=== PATIENT | male | born 1960 | race Caucasian/White ===

== ENCOUNTER 2022-05-22 14:19 | Inpatient (IN) | payer MEDICARE ==
[~2022-05-22] VITALS: Ht 165.1 cm; Wt 56.2 kg
--- NOTE | 2022-05-22 11:33 | PM&R Post Admission Assessment ---
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 He lives in [place] with his spouse and his mother is involved in his care. He has had multiple falls in past 6 months. He currently denies any pain. Meds restarted include steroids. No constipation r eported. He is mod assist for ambulation and ADL's. cannot provide physical help but can provide supervision. Past Fefvzyh-Pcgbkh-Uqyuxr Hx Past Med/Social Hx: Reviewed Nursing Past Med/Soc Hx, Reviewed and Corrections made Patient Social History Marrital Status: Employed/Student: unemployed Alcohol Use: Denies Use Smoking Status: Former Smoker Past Medical History craniotomy 05/15/22 Cardiac: High Cholesterol, Hypertension Cancer: Melanoma Did You Recieve Any Treatments: Yes What Type of Treatment Did You: Surgical Intervention PM&R Allergy/Meds/Data Review Allergies Coded Allergies: Penicillins (Verified Allergy, Unknown, 05/22/22) Home Medications Scheduled Dexamethasone (Dexamethasone), 1 MG PO DAILY, (Reported) Dexamethasone (Dexamethasone), 2 MG PO BID, (Reported) Famotidine (Famotidine), 20 MG PO BID, (Reported) Fenofibrate Nanocrystallized (Tricor), 145 MG PO DAILY, (Reported) Levetiracetam (Levetiracetam), 500 MG PO BID, (Reported) Current Medications Current Medications Reviewed Review of Systems Constitutional: see HPI, malaise, weakness EENTM: no symptoms reported Respiratory: no symptoms reported Cardiovascular: no symptoms reported Gastrointestinal: no symptoms reported Genitourinary: no symptoms reported Musculoskeletal: back pain, joint pain Skin: no symptoms reported Psychiatric/Neurological: Depressed, Numbness, Weakness All Other Systems Reviewed Negative Unless Noted: Yes Physical Exam Physical Exam Vital Signs Capillary Refill : Height, Weight, BMI Height: '" Weight: lbs. oz. kg; BMI Method: General Appearance: No Apparent Distress, WD/WN, Chronically ill, Thin Eyes: Bilateral Eye Normal Inspection, Bilateral Eye PERRL HEENT: PERRL/EOMI, Normal ENT Inspection, Pharynx Normal Neck: Full Range of Motion, Normal Inspection, Non Tender, Supple, Carotid Bruit Respiratory: Chest Non Tender, Lungs Clear, Normal Breath Sounds, No Accessory Muscle Use, No Respiratory Distress Cardiovascular: Regular Rate, Rhythm, No Edema, No Gallop, No JVD, No Murmur, Normal Peripheral Pulses Gastrointestinal: Normal Bowel Sounds, No Organomegaly, No Pulsatile Mass, Non Tender, Soft Back: Normal Inspection, No CVA Tenderness, No Vertebral Tenderness Extremity: Normal Capillary Refill, Normal Inspection, Normal Range of Motion, Non Tender, No Calf Tenderness, No Pedal Edema Neurologic/Psychiatric: Alert, Oriented x3, No Motor/Sensory Deficits, 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- XII Norm as Tested, Abnormal Gait, Depressed Affect, Facial Droop, Motor Weakness (2/5 lower extremities, 3/5 upper) Skin: Normal Color, Warm/Dry Lymphatic: No Adenopathy PM&R Medical Assessment & Plan REHAB/MEDICAL ASSESSMENT AND PLAN: REHAB IMPAIRMENT GROUP: craniotomy ETIOLOGIC DIAGNOSIS: craniotomy The comorbidities that impact the patients function and/or functional outcome by: Severe weakness of extremities, falls, seizure risk, high dose steroids REHAB PLAN: The patient is being admitted to our comprehensive inpatient rehabilitation fac ili and can tolerate the intensity of service consisting of at least: 180 minutes of therapy a day, 5 out of 7 days a week Rehab treatment will consist of: PT OT will focus on regaining function with assistive devices in order to prevent falls and increase success at home and ST will work on cognition The patient/family has a good understanding of our discharge process and will benefit from an interdisciplinary inpatient rehabilitation program. The patient has potential to make improvement and is in need of at least two of the following multidisciplinary therapies including but not limited to physical, o ccupational, speech, and prosthetics and orthotics. Additionally the patient will need services from respiratory, nutritional services, wound care, psychology, etc. (Customize this to each patient). Given the patients complex condition and risk of further medical complications, rehabilitation services cannot be safely or effectively provided at a lower level of care such as a [facility]. BARRIERS TO DISCHARGE: Confusion ESTIMATED LOS: 10 days DISPOSITION: Home RELEVANT CHANGES SINCE PREADMISSION SCREENING: I have compared the patients medical and functional status at the time of the preadmission screening and there are: no changes PROGNOSIS: Fair REHABILITATION GOALS: 1. PT OT will focus on regaining function with assistive devices in order to prevent falls and increase success at home and ST will work on cognition All the above goals were reviewed with the patient and he/she is in agreement. By signing this document, I acknowledge that I have personally performed a full physical examination on this patient within 24 hours of admission to this inpatient rehabilitation facility and have determined the patient to be able to tolerate the above course of treatment at an intensive level for a reasonable period of time. I will be completing a detailed individualized Plan of Care for this patient by day #4 of the patients stay based upon the Preadmission Screen, the Post-Admission Evaluation, and the therapy evaluations. Admission Dx/Comorbidities: (1) S/P brain surgery ICD Codes: Z98.890 - Other specified postprocedural states Assessment/Plan Assessment and Plan Assess & Plan/Chief Complaint Assessment: s/p craniotomy 05/15/22 due to melanoma with mets HTN HLP Seizure risk Confusion Generalized weakness Plan: PT OT Home meds Fall risk ANSLEY ALSTON DO May 22, 2022 11:33
[2022-05-22 13:40] VITALS: BP 119/64
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
[~2022-05-22 14:19] MED LIST: ACETAMINOPHEN 325 MG TABLET PO PRN; ALPRAZolam 0.25 MG (XANAX) TAB PO PRN; BISACODYL 10 MG SUPP (DULCOLAX) PR PRN; CALCIUM CARBONATE 500 MG (TUMS) TAB.CHEW PO PRN; DEXA1TAB PO; DEXA2TAB PO; DOCUSATE SODIUM 100 MG (COLACE) CAP PO PRN; FAMO20TA5 PO; FENO145T2 PO; FLEET ENEMA ADULT 1 EA BTL PR PRN; LACTULOSE SYRUP 10GM/15ML (ENULOSE) 30ML UDC PO PRN; LEVE500T6 PO; LOPERAMIDE 2 MG (IMODIUM) TABLET PO PRN; MELATONIN 3 MG TABLET PO PRN; ONDANSETRON 4 MG (ZOFRAN) ORAL DISSOLVE TAB PO PRN; diphenhydrAMINE 25 MG TAB (BENADRYL) PO PRN; guaiFENesin/CODEINE (ROBITUSSIN AC) 10ML UDC PO PRN
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
[2022-05-22 20:00] VITALS: BP 97/56
[2022-05-22] MEDS ORDERED: DEXAMETHASONE 2 MG PO SCH (21:00)
[2022-05-22] MEDS: DOCUSATE SODIUM 100 MG (COLACE) CAP PO SCH (21:10)
[2022-05-22] MEDS: polyethylene glycoL POWDER 17 GM (MIRALAX) PACK PO SCH (21:10)
[2022-05-22] MEDS: SENNA W/DOCUSATE (SENOKOT S) TABLET PO SCH (21:11)
[2022-05-22] MEDS: FAMOTIDINE 20 MG (PEPCID) TABLET PO SCH (21:15)
[2022-05-23 06:51] LABS: BASOPHILS # (AUTO) 0.1 10^3/uL (0.0-0.1); BASOPHILS % (AUTO) 0 % (0-10); EOSINOPHILS % (AUTO) 0 % (0-10); HEMATOCRIT 31 % (40-54); HEMOGLOBIN 10.3 g/dL (13.3-17.7); LYMPHOCYTES # (AUTO) 2.1 10^3/uL (1.0-4.0); LYMPHOCYTES % (AUTO) 10 % (12-44); MEAN CORPUSCULAR HEMOGLOBIN 30 pg (25-34); MEAN CORPUSCULAR HGB CONC 34 g/dL (32-36); MEAN CORPUSCULAR VOLUME 88 fL (80-99); MEAN PLATELET VOLUME 9.1 fL (9.0-12.2); MONOCYTES # (AUTO) 0.9 10^3/uL (0.0-1.0); MONOCYTES % (AUTO) 4 % (0-12); NEUTROPHILS # (AUTO) 14.5 10^3/uL (1.8-7.8); NEUTROPHILS % (AUTO) 72 % (42-75); PLATELET COUNT 200 10^3/uL (130-400); WHITE BLOOD COUNT 20.3 10^3/uL (4.3-11.0)
[2022-05-23 07:15] LABS: ALBUMIN 2.8 GM/DL (3.2-4.5); POTASSIUM 3.8 MMOL/L (3.6-5.0)
[2022-05-23 07:16] LABS: CALCIUM 8.2 MG/DL (8.5-10.1)
[2022-05-23 07:18] LABS: TOTAL PROTEIN 4.7 GM/DL (6.4-8.2)
[2022-05-23 07:19] LABS: BILIRUBIN,TOTAL 0.3 MG/DL (0.1-1.0)
[2022-05-23 07:21] LABS: CREATININE SERUM 0.51 MG/DL (0.60-1.30)
[2022-05-23 07:24] LABS: BAND NEUTROPHILS 4 %; NEUTROPHILS % (MANUAL) 82 %
[2022-05-23 07:25] LABS: LYMPHOCYTES % (MANUAL) 11 %; MONOCYTES % (MANUAL) 3 %; RBC MORPH NORMAL
[2022-05-23 07:27] VITALS: BP 108/59
[2022-05-23] MEDS ORDERED: NON-FORMULARY MEDICATION 1 EA EA (Fenofibrate Nanocrystallized (Tricor) 145 MG) PO SCH (09:00)
[2022-05-23] MEDS: SENNA W/DOCUSATE (SENOKOT S) TABLET PO SCH ×2 (10:14→19:35)
[2022-05-23] MEDS: FENOFIBRATE 134 MG (LOFIBRA) CAPSULE PO SCH (10:14)
[2022-05-23] MEDS: FAMOTIDINE 20 MG (PEPCID) TABLET PO SCH ×2 (10:14→20:16)
[2022-05-23] MEDS: polyethylene glycoL POWDER 17 GM (MIRALAX) PACK PO SCH ×2 (10:15→19:35)
[2022-05-23] MEDS: DOCUSATE SODIUM 100 MG (COLACE) CAP PO SCH ×2 (11:00→19:35)
--- NOTE | 2022-05-23 11:39 | Physical Therapy Daily Note ---
PT Daily Note-Current Subjective Pt in bed upon arrival and agrees to PT. Declines amb. Mental Status Patient Orientation: Person, Confused, Place Transfers SCALE: Activities may be completed with or without assistive devices. 0-Vfpndpvenw-ncyvirh completes the activity by him/herself with no assistance from a helper. 5-Set-up or Clean-up Assistance-helper sets up or cleans up; patient completes activity. [place] assists only prior to or following the activity. 4-Supervision or Touching Assistance-helper provides verbal cues and/or touching/steadying and/or contact guard assistance as patient completes activity. Assistance may be provided throughout the activity or intermittently. 3-Partial/Moderate Assistance-helper does LESS THAN HALF the effort. [place] lifts, holds or supports trunk or limbs, but provides less than half the effort. 2-Substantial/Maximal Assistance-helper does MORE THAN HALF the effort. [place] lifts or holds trunk or limbs and provides more than half the effort. 5-Bndjaixlq-ncfmcc does ALL the effort. Patient does none of the effort to complete the activity. Or, the assistance of 2 or more helpers is required for the patient to complete the activity. If activity was not attempted, code reason: 7-Patient Refused. 9-Not Applicable-not attempted and the patient did not perform the activity before the current illness, exacerbation or injury. 10-Not Attempted due to Environmental Limitations-(lack of equipment, weather restraints, etc.). 88-Not Attempted due to Medical Conditions or Safety Concerns. Exercises Supine Ex: Bridging, Ankle pumps, Quad Set, Rolling, Glut sets, Heel Slides, Short Arc Quads, Straight leg raise, Hip abd/add Supine Reps: 20 Treatments Call light nearby and all needs met as PT departs. Assessment Current Status: Fair Progress Pt required cues in order to perform exs correctly and to stay on task. PT Short Term Goals Short Term Goals Time Frame: May 29, 2022 Roll Left & Right: 6 Sit to lyin Lying to sitting on side of be: 4 Sit to stand: 4 Chair/wxv-fh-tbsni transfer: 4 Walk 10 feet: 4 Walk 50 feet with two turns: 4 Walk 150 feet: 4 PT Halfway Goals It Network Engineer Goals PT Halfway Goals Time Frame: Jun 12, 2022 Roll Left & Right (QC): 6 Sit to Lying (QC): 6 Lying-Sitting on Side/Bed(QC): 6 Sit to Stand (QC): 6 Chair/Rqg-jp-Geomz Xfer(QC): 5 Toilet Transfer (QC): 5 Car Transfer (QC): 5 Does the Patient Walk: Yes Walk 10 feet (QC): 5 Walk 50ft with 2 Turns (QC): 5 Walk 150 ft (QC): 5 Walking 10ft on Uneven Surface: 5 1 Step (curb) (QC): 4 4 Steps (QC): 4 12 Steps (QC): 88 Picking up an Object (QC): 4 (using assembly detailer) Wheel 50 feet with 2 turns (QC: 9 Wheel 150 feet: 9 PT Plan Problem List Problem List: Activity Tolerance, Functional Strength Treatment/Plan Treatment Plan: Continue Plan of Care Treatment Plan: Bed Mobility, Education, Functional Activity Enrico, Functional Strength, Group Therapy, Gait, Safety, Therapeutic Exercise, Transfers Treatment Duration: Jun 12, 2022 Frequency: At least 5 of 7 days/Wk (IRF) Estimated Hrs Per Day: 1.5 hours per day Patient and/or Family Agrees t: Yes Safety Risks/Education Patient Education: Correct Positioning Teaching Recipient: Patient Teaching Methods: Discussion Response to Teaching: Return Demonstration Time/GCodes Time In: 0855 Time Out: 0905 Total Billed Treatment Time: 10 Total Billed Treatment 1, Ex DORIAN BARRON HEAT TREATING BLUER May 23, 2022 11:39
--- NOTE | 2022-05-23 13:08 | PM&R Progress Note ---
Subjective HPI/CC On Admission Date Seen by Provider: May 23, 2022 Time Seen by Provider: 13:00 Subjective/Events-last exam 05/23/2022: Doing well Brother at bedside Asked about pathology and I don't have access to that No pain reported Confusion noted WBC elevated from steroids Review of Systems General: Fatigue, Malaise Neurological: Confusion Objective Exam Vital Signs Vital Signs Date Time Temp Pulse Resp B/P (MAP) Pulse Ox O2 Delivery O2 Flow Rate FiO2 05/23/22 20:20 Room Air 05/23/22 19:51 36.7 65 20 117/74 (88) 100 Capillary Refill : General Appearance: No Apparent Distress, WD/WN, Chronically ill, Thin HEENT: PERRL/EOMI, Normal ENT Inspection, Pharynx Normal Neck: Full Range of Motion, Normal Inspection, Non Tender, Supple, Carotid Bruit Respiratory: Chest Non Tender, Lungs Clear, Normal Breath Sounds, No Accessory Muscle Use, No Respiratory Distress Cardiovascular: Regular Rate, Rhythm, No Edema, No Gallop, No JVD, No Murmur, Normal Peripheral Pulses Gastrointestinal: Normal Bowel Sounds, No Organomegaly, No Pulsatile Mass, Non Tender, Soft Back: Normal Inspection, No CVA Tenderness, No Vertebral Tenderness Extremity: Normal Capillary Refill, Normal Inspection, Normal Range of Motion, Non Tender, No Calf Tenderness, No Pedal Edema Neurologic/Psychiatric: Alert, No Motor/Sensory Deficits, strip deburrer II-XII Norm as Tested, Abnormal Gait, Depressed Affect, Disoriented, Facial Droop, Motor Weakness (2/5 lower extremities, 3/5 upper) Skin: Normal Color, Warm/Dry Lymphatic: No Adenopathy Results/Procedures Lab Laboratory Tests 05/23/22 06:45 Patient resulted labs reviewed. FIM Transfers Therapy Code Descriptions/Definitions Functional [place] Measure: 0=Not Assessed/NA 4=Minimal Assistance 1=Total Assistance 5=Supervision or Setup 2=Maximal Assistance 6=Modified [place] 3=Moderate Assistance 7=Complete IndependenceSCALE: Activities may be completed with or without assistive devices. 3-Gcjfbfprwj-ksxpbku completes the activity by him/herself with no assistance from a helper. 5-Set-up or Clean-up Assistance-helper sets up or cleans up; patient completes activity. [place] assists only prior to or following the activity. 4-Supervision or Touching Assistance-helper provides verbal cues and/or touching/steadying and/or contact guard assistance as patient completes activity. Assistance may be provided throughout the activity or intermittently. 3-Partial/Moderate Assistance-helper does LESS THAN HALF the effort. [place] lifts, holds or supports trunk or limbs, but provides less than half the effort. 2-Substantial/Maximal Assistance-helper does MORE THAN HALF the effort. [place] lifts or holds trunk or limbs and provides more than half the effort. 0-Edmrenuls-bdlkeh does ALL the effort. Patient does none of the effort to complete the activity. Or, the assistance of 2 or more helpers is required for the patient to complete the activity. If activity was not attempted, code reason: 7-Patient Refused. 9-Not Applicable-not attempted and the patient did not perform the activity before the current illness, exacerbation or injury. 10-Not Attempted due to Environmental Limitations-(lack of equipment, weather restraints, etc.). 88-Not Attempted due to Medical Conditions or Safety Concerns. Roll Left to Right (QC): 6 Sit to Lying (QC): 4 Sit to Stand (QC): 3 Chair/Yqx-ok-Jpznc Xfer(QC): 4 Car Transfer (QC): 4 Gait Training Does the Patient Walk?: Yes Walk 10 feet (QC): 4 Walk 50 ft with 2 Turns(QC): 4 Walk 150 ft (QC): 88 Walking 10ft/uneven surface-QC: 4 Gait Assistive Device: FWW Wheelchair Training Wheel 50 ft with 2 turns (QC): 9 Wheel 150 ft (QC): 9 Stair Training 1 Step (curb) (QC): 7 4 Steps (QC): 7 12 Steps (QC): 7 Balance Picking up an Object (QC): 7 ADL-Treatment Eating (QC): 5 (Per pt report he needs assistance to open containers/packages and cut up food) Oral Hygiene (QC): 4 (CGA for standing balance) Shower/Bathe Self (QC): 3 (Min-Mod Assist to maintain balance while seated EOB, v/c's for sequencing) Upper Body Dressing (QC): 3 (Min A for seated balance) Lower Body Dressing (QC): 3 (Mod A overall for seated balance and threading BLE through pants) On/Off Footwear (QC): 3 (Mod A for seated balance and threading bilateral feet) Toileting Hygiene (QC): 3 (Min A for standing balance to hike pants) Assessment/Plan Assessment and Plan Assess & Plan/Chief Complaint Assessment: s/p craniotomy 05/15/22 due to melanoma with mets HTN HLP Seizure risk Confusion Generalized weakness Plan: PT OT Home meds Fall risk 05/23/2022: Monitor pain Fall risk (1) S/P brain surgery ANSLEY ALSTON DO May 23, 2022 13:08
--- NOTE | 2022-05-23 13:08 | Individualized Plan of Care ---
Individualized Plan of Care Rehab Nursing IPOC Order Admission Date May 22, 2022 at 14:19 Current Orders Orders Admission Order(Inpt,Obs,Sdc) (05/22/22 11:30) Vital Signs: Per Unit Policy ( 08,16,00 (05/22/22 11:30) Khris Ernandez , (05/22/22 11:30) Sequential Compression Device (05/22/22 11:30) Analysis Specialist-Inpt Rehab Con (05/22/22 11:30) Rehab Nursing Orders-Ipoc (05/22/22 11:30) Physical Therapy Rehab Orders (05/22/22 11:30) Occupational Therapy Rehab Ord (05/22/22 11:30) Speech Therapy Rehab Orders (05/22/22 11:30) Cbc With Automated Diff (05/23/22 06:00) Comprehensive Metabolic Panel (05/23/22 06:00) Precautions (Aru) (05/22/22 11:30) Weekly Weight WEEK (05/22/22 11:30) Rehab-Intensity Of Therapy (05/22/22 11:30) Initiate Admission Nursing Pro .admission (05/22/22 11:30) Alprazolam Tablet (Xanax Tablet) (05/22/22 11:30) Calcium Carbonate Chew Tablet (Antacid C (05/22/22 11:30) Diphenhydramine Tablet (Benadryl Tablet) (05/22/22 11:30) Docusate Sodium Capsule (Colace Capsule) (05/22/22 21:00) Docusate Sodium Capsule (Colace Capsule) (05/22/22 11:30) Bisacodyl Suppository (Dulcolax Supposit (05/22/22 11:30) Lactulose Oral Solution (Enulose Oral So (05/22/22 11:30) Na Phos/Na Biphos Enema (Fleet Enema Ortega (05/22/22 11:30) Guaifenesin/Codeine Syrup (Robitussin Ac (05/22/22 11:30) Loperamide Tablet (Imodium Tablet) (05/22/22 11:30) Melatonin Tablet (Melatonin Tablet) (05/22/22 11:30) Polyethylene Glycol Powder Pkt (Miralax (05/22/22 21:00) Ondansetron Oral Dissolve Tab (Zofran (05/22/22 11:30) Senna S Tablet (Senokot S Tablet) (05/22/22 21:00) Acetaminophen Tablet/Caplet (Tylenol T (05/22/22 11:30) Code/Resuscitation (05/22/22 11:30) Initiate Admission Nursing Pro .admission (05/22/22 11:30) Admission Arrival Bed Request (05/22/22 13:49) Patient Visit (05/22/22 ) Pt Eval Moderate Complexity (05/22/22 ) Functional Activities, Ea 15 (05/22/22 ) General/Regular (05/22/22 Lunch) Famotidine Tablet (Pepcid Tablet) (05/22/22 21:00) Levetiracetam Tablet (Keppra Tablet) (05/22/22 21:00) (Nf) Dexamethasone (05/22/22 21:00) (Nf) Fenofibrate Nanocrystallized (Trico (05/23/22 09:00) Fenofibrate,Micronized Capsule (Lofibra (05/23/22 09:00) Dexamethasone Tablet (Decadron Tablet) (05/22/22 18:00) Dexamethasone Tablet (Decadron Tablet) (05/29/22 08:00) Manual Differential (05/23/22 06:45) Patient Visit (05/23/22 ) Exercise Therap, Ea 15 Min (05/23/22 ) Rehab Nursing Orders: Ongoing Assess. of Cognitive Status, Ongoing Assess. of Function Status, Bladder Management, Bladder Scan, Bladder Training, Bowel Management, Bowel Training, Disease Management & Educaiton, DVT Prophylaxis, Fall Prevention, Fluid/Electrolyte/Nutrition Mgmt, Infection Prevention, Medication Management & Education, Management of Risks & Complications, Management of Skin Intergrity, Nutrition Management, Pain Management, Patient/Family Support, Safety Management, Wound Management Intensity of Therapy to be met Patient to be seen: Min.3h per day/5 of 7d PT IPOC Problem List: Activity Tolerance, Functional Strength Treatment Plan: Continue Plan of Care Bed Mobility, Education, Functional Activity Enrico, Functional Strength, Group Therapy, Gait, Safety, Therapeutic Exercise, Transfers Treatment Duration: Jun 12, 2022 Frequency: At least 5 of 7 days/Wk (IRF) Estimated Hrs Per Day: 1.5 hours per day OT IPOC Problems: Decreased Activ Tolerance, Decreased Safety Aware, Decreased UE Strength, Impaired Coordination, Impaired Funct Balance, Impaired I ADL's, Impaired Self-Care Skills, Restricted Funct UE ROM OT Treatment, Training and Edu: Yes Plan of Care: ADL Retraining, Functional Mobility, Group Exercise/Act as Ind, UE Funct Exercise/Act, UE Neuromus Re-Ed/Coord, Visual/Perceptual Retrain Treatment Duration: Jun 19, 2022 Frequency: At least 5 of 7 days/Wk (IRF) Estimated Hrs Per Day: 1.[address] IPOC Speech Therapy Treatment Plan: Modify Plan, See Comments Treatment Duration: May 25, 2022 Frequency: Modified Program (IRF) Estimated Hrs Per Day: Other Analysis Specialist/Case Mgmt Analysis Specialist/Case Managemen: Discharge Planning Dietitian/Tar Heat Exchanger Cleaner Dietitian/Tar Heat Exchanger Cleaner to monitor nutritional status and make changes and/or recommendations as needed and work with speech pathology on dietary upgrades as the occur. Physician IPOC Medical Issues being managed closely and that require the 24 hour availability of a physician: Recent craniotomy will increase risk of confusion and falls and elevated wbc from steroids will place him at risk for infections Medical Issues: Bowel/Bladder Function, DVT Prophylaxis, Falls Precautions, Fluid/Electrolyte/Nutrition Balance, Infection Protection, Pain Management, Wound Care Brief Synthesis of Preadmission Screen, Post-Admission Evaluation, and Therapy Evaluations: PT OT ST will all focus on regaining abilities from pre-craniotomy in order to prevent falls and increase independence in order to go home to live independently Medical Prognosis: Fair Anticipated Length of Stay: 10 days ANSLEY ALSTON DO May 23, 2022 13:08
[2022-05-23 19:51] VITALS: BP 117/74
--- NOTE | 2022-05-24 06:54 | PM&R Progress Note ---
Subjective HPI/CC On Admission Date Seen by Provider: May 24, 2022 Time Seen by Provider: 13:00 Subjective/Events-last exam 05/24/2022: Patient doing well Took a shower today No pain reported 05/23/2022: Doing well Brother at bedside Asked about pathology and I don't have access to that No pain reported Confusion noted WBC elevated from steroids Review of Systems General: Fatigue, Malaise Neurological: Confusion Objective Exam Vital Signs Vital Signs Date Time Temp Pulse Resp B/P (MAP) Pulse Ox O2 Delivery O2 Flow Rate FiO2 05/24/22 08:24 Room Air 05/24/22 07:19 36.7 77 18 115/59 (77) 97 Capillary Refill : General Appearance: No Apparent Distress, WD/WN, Chronically ill, Thin HEENT: PERRL/EOMI, Normal ENT Inspection, Pharynx Normal Neck: Full Range of Motion, Normal Inspection, Non Tender, Supple, Carotid Bruit Respiratory: Chest Non Tender, Lungs Clear, Normal Breath Sounds, No Accessory Muscle Use, No Respiratory Distress Cardiovascular: Regular Rate, Rhythm, No Edema, No Gallop, No JVD, No Murmur, Normal Peripheral Pulses Gastrointestinal: Normal Bowel Sounds, No Organomegaly, No Pulsatile Mass, Non Tender, Soft Back: Normal Inspection, No CVA Tenderness, No Vertebral Tenderness Extremity: Normal Capillary Refill, Normal Inspection, Normal Range of Motion, Non Tender, No Calf Tenderness, No Pedal Edema Neurologic/Psychiatric: Alert, No Motor/Sensory Deficits, cardiograph operator II-XII Norm as Tested, Abnormal Gait, Depressed Affect, Disoriented, Facial Droop, Motor Weakness (2/5 lower extremities, 3/5 upper) Skin: Normal Color, Warm/Dry Lymphatic: No Adenopathy Results/Procedures Lab Patient resulted labs reviewed. FIM Transfers Therapy Code Descriptions/Definitions Functional [place] Measure: 0=Not Assessed/NA 4=Minimal Assistance 1=Total Assistance 5=Supervision or Setup 2=Maximal Assistance 6=Modified [place] 3=Moderate Assistance 7=Complete IndependenceSCALE: Activities may be completed with or without assistive devices. 8-Kocjbotvqm-mgiqwnb completes the activity by him/herself with no assistance from a helper. 5-Set-up or Clean-up Assistance-helper sets up or cleans up; patient completes activity. [place] assists only prior to or following the activity. 4-Supervision or Touching Assistance-helper provides verbal cues and/or touching/steadying and/or contact guard assistance as patient completes activity. Assistance may be provided throughout the activity or intermittently. 3-Partial/Moderate Assistance-helper does LESS THAN HALF the effort. [place] lifts, holds or supports trunk or limbs, but provides less than half the effort. 2-Substantial/Maximal Assistance-helper does MORE THAN HALF the effort. [place] lifts or holds trunk or limbs and provides more than half the effort. 1-Itgywagoq-fehyix does ALL the effort. Patient does none of the effort to complete the activity. Or, the assistance of 2 or more helpers is required for the patient to complete the activity. If activity was not attempted, code reason: 7-Patient Refused. 9-Not Applicable-not attempted and the patient did not perform the activity before the current illness, exacerbation or injury. 10-Not Attempted due to Environmental Limitations-(lack of equipment, weather restraints, etc.). 88-Not Attempted due to Medical Conditions or Safety Concerns. Roll Left to Right (QC): 6 Sit to Lying (QC): 4 Sit to Stand (QC): 3 Chair/Sbz-ca-Sefrd Xfer(QC): 4 Car Transfer (QC): 4 Gait Training Does the Patient Walk?: Yes Walk 10 feet (QC): 4 Walk 50 ft with 2 Turns(QC): 4 Walk 150 ft (QC): 88 Walking 10ft/uneven surface-QC: 4 Gait Assistive Device: FWW Wheelchair Training Wheel 50 ft with 2 turns (QC): 9 Wheel 150 ft (QC): 9 Stair Training 1 Step (curb) (QC): 7 4 Steps (QC): 7 12 Steps (QC): 7 Balance Picking up an Object (QC): 7 ADL-Treatment Eating (QC): 5 (Per pt report he needs assistance to open containers/packages and cut up food) Oral Hygiene (QC): 4 (CGA for standing balance) Shower/Bathe Self (QC): 3 (Min-Mod Assist to maintain balance while seated EOB, v/c's for sequencing) Upper Body Dressing (QC): 3 (Min A for seated balance) Lower Body Dressing (QC): 3 (Mod A overall for seated balance and threading BLE through pants) On/Off Footwear (QC): 3 (Mod A for seated balance and threading bilateral feet) Toileting Hygiene (QC): 3 (Min A for standing balance to hike pants) Assessment/Plan Assessment and Plan Assess & Plan/Chief Complaint Assessment: s/p craniotomy 05/15/22 due to melanoma with mets HTN HLP Seizure risk Confusion Generalized weakness Plan: PT OT Home meds Fall risk 05/23/2022: Monitor pain Fall risk 05/24/2022: Monitor pain Steroids (1) S/P brain surgery ANSLEY ALSTON DO May 24, 2022 06:54
[2022-05-24 07:19] VITALS: BP 115/59
[2022-05-24] MEDS: SENNA W/DOCUSATE (SENOKOT S) TABLET PO SCH ×2 (09:02→20:24)
[2022-05-24] MEDS: FENOFIBRATE 134 MG (LOFIBRA) CAPSULE PO SCH (09:02)
[2022-05-24] MEDS: FAMOTIDINE 20 MG (PEPCID) TABLET PO SCH ×2 (09:02→20:24)
[2022-05-24] MEDS: DOCUSATE SODIUM 100 MG (COLACE) CAP PO SCH ×2 (09:02→20:25)
[2022-05-24] MEDS: polyethylene glycoL POWDER 17 GM (MIRALAX) PACK PO SCH ×2 (09:03→20:25)
[2022-05-24 19:45] VITALS: BP 109/62
[2022-05-24] MEDS: MICONAZOLE 2% POWDER (DESENEX AF) 90 GM TOP SCH (20:26)
--- NOTE | 2022-05-25 06:42 | PM&R Progress Note ---
Subjective HPI/CC On Admission Date Seen by Provider: May 25, 2022 Time Seen by Provider: 09:00 Subjective/Events-last exam 05/25/2022: Patient doing well No concerns With heavy cues to keep on task 05/24/2022: Patient doing well Took a shower today No pain reported 05/23/2022: Doing well Brother at bedside Asked about pathology and I don't have access to that No pain reported Confusion noted WBC elevated from steroids Review of Systems General: Fatigue, Malaise Objective Exam Vital Signs Vital Signs Date Time Temp Pulse Resp B/P (MAP) Pulse Ox O2 Delivery O2 Flow Rate FiO2 05/26/22 07:22 36.5 64 14 124/64 (84) 100 Room Air Capillary Refill : General Appearance: No Apparent Distress, WD/WN, Chronically ill, Thin HEENT: PERRL/EOMI, Normal ENT Inspection, Pharynx Normal Neck: Full Range of Motion, Normal Inspection, Non Tender, Supple, Carotid Bruit Respiratory: Chest Non Tender, Lungs Clear, Normal Breath Sounds, No Accessory Muscle Use, No Respiratory Distress Cardiovascular: Regular Rate, Rhythm, No Edema, No Gallop, No JVD, No Murmur, Normal Peripheral Pulses Gastrointestinal: Normal Bowel Sounds, No Organomegaly, No Pulsatile Mass, Non Tender, Soft Back: Normal Inspection, No CVA Tenderness, No Vertebral Tenderness Extremity: Normal Capillary Refill, Normal Inspection, Normal Range of Motion, Non Tender, No Calf Tenderness, No Pedal Edema Neurologic/Psychiatric: Alert, No Motor/Sensory Deficits, client support consultant II-XII Norm as Tested, Abnormal Gait, Depressed Affect, Disoriented, Facial Droop, Motor Weakness (2/5 lower extremities, 3/5 upper) Skin: Normal Color, Warm/Dry Lymphatic: No Adenopathy Results/Procedures Lab Patient resulted labs reviewed. FIM Transfers Therapy Code Descriptions/Definitions Functional [place] Measure: 0=Not Assessed/NA 4=Minimal Assistance 1=Total Assistance 5=Supervision or Setup 2=Maximal Assistance 6=Modified [place] 3=Moderate Assistance 7=Complete IndependenceSCALE: Activities may be completed with or without assistive devices. 0-Hgtjbqrvxe-zbderjs completes the activity by him/herself with no assistance from a helper. 5-Set-up or Clean-up Assistance-helper sets up or cleans up; patient completes activity. [place] assists only prior to or following the activity. 4-Supervision or Touching Assistance-helper provides verbal cues and/or touching/steadying and/or contact guard assistance as patient completes activity. Assistance may be provided throughout the activity or intermittently. 3-Partial/Moderate Assistance-helper does LESS THAN HALF the effort. [place] lifts, holds or supports trunk or limbs, but provides less than half the effort. 2-Substantial/Maximal Assistance-helper does MORE THAN HALF the effort. [place] lifts or holds trunk or limbs and provides more than half the effort. 3-Fnpkxexku-pqvsmg does ALL the effort. Patient does none of the effort to complete the activity. Or, the assistance of 2 or more helpers is required for the patient to complete the activity. If activity was not attempted, code reason: 7-Patient Refused. 9-Not Applicable-not attempted and the patient did not perform the activity before the current illness, exacerbation or injury. 10-Not Attempted due to Environmental Limitations-(lack of equipment, weather restraints, etc.). 88-Not Attempted due to Medical Conditions or Safety Concerns. Roll Left to Right (QC): 6 Sit to Lying (QC): 4 Sit to Stand (QC): 3 Chair/Psg-zm-[place] Xfer(QC): 4 Car Transfer (QC): 4 Gait Training Does the Patient Walk?: Yes Walk 10 feet (QC): 4 Walk 50 ft with 2 Turns(QC): 4 Walk 150 ft (QC): 88 Walking 10ft/uneven surface-QC: 4 Gait Assistive Device: FWW Wheelchair Training Wheel 50 ft with 2 turns (QC): 9 Wheel 150 ft (QC): 9 Stair Training 1 Step (curb) (QC): 7 4 Steps (QC): 7 12 Steps (QC): 7 Balance Picking up an Object (QC): 7 ADL-Treatment Eating (QC): 5 (Per pt report he needs assistance to open containers/packages and cut up food) Oral Hygiene (QC): 4 (CGA for standing balance) Shower/Bathe Self (QC): 3 (Min-Mod Assist to maintain balance while seated EOB, v/c's for sequencing) Upper Body Dressing (QC): 3 (Min A for seated balance) Lower Body Dressing (QC): 3 (Mod A overall for seated balance and threading BLE through pants) On/Off Footwear (QC): 3 (Mod A for seated balance and threading bilateral feet) Toileting Hygiene (QC): 3 (Min A for standing balance to hike pants) Assessment/Plan Assessment and Plan Assess & Plan/Chief Complaint Assessment: s/p craniotomy 05/15/22 due to melanoma with mets HTN HLP Seizure risk Confusion Generalized weakness Plan: PT OT Home meds Fall risk 05/23/2022: Monitor pain Fall risk 05/24/2022: Monitor pain Steroids 05/25/2022: Continue current treatment Steroid taper per neurosurgery (1) S/P brain surgery ANSLEY ALSTON DO May 25, 2022 06:42
[2022-05-25 07:47] VITALS: BP 110/60
[2022-05-25] MEDS: FENOFIBRATE 134 MG (LOFIBRA) CAPSULE PO SCH (08:44)
[2022-05-25] MEDS: DOCUSATE SODIUM 100 MG (COLACE) CAP PO SCH ×2 (08:44→22:12)
[2022-05-25] MEDS: FAMOTIDINE 20 MG (PEPCID) TABLET PO SCH ×2 (08:44→22:09)
[2022-05-25] MEDS: MICONAZOLE 2% POWDER (DESENEX AF) 90 GM TOP SCH ×2 (08:45→22:10)
[2022-05-25] MEDS: SENNA W/DOCUSATE (SENOKOT S) TABLET PO SCH ×2 (09:55→22:13)
[2022-05-25] MEDS: polyethylene glycoL POWDER 17 GM (MIRALAX) PACK PO SCH ×2 (09:55→19:45)
--- NOTE | 2022-05-25 10:45 | Occupational Ther Daily Note ---
OT Current Status-Daily Note Subjective Pt was on toileting with nursing staff upon OT arrival, agreeable to tx. Mental Status/Objective Patient Orientation: Person, Confused, Mumbles ADL-Treatment Therapy Code Descriptions/Definitions Functional [place] Measure: 0=Not Assessed/NA 4=Minimal Assistance 1=Total Assistance 5=Supervision or Setup 2=Maximal Assistance 6=Modified [place] 3=Moderate Assistance 7=Complete IndependenceSCALE: Activities may be completed with or without assistive devices. 8-Spynwclwwp-sfdooss completes the activity by him/herself with no assistance f rom a helper. 5-Set-up or Clean-up Assistance-helper sets up or cleans up; patient completes activity. [place] assists only prior to or following the activity. 4-Supervision or Touching Assistance-helper provides verbal cues and/or touching/steadying and/or contact guard assistance as patient completes activity. Assistance may be provided throughout the activity or intermittently. 3-Partial/Moderate Assistance-helper does LESS THAN HALF the effort. [place] lifts, holds or supports trunk or limbs, but provides less than half the effort. 2-Substantial/Maximal Assistance-helper does MORE THAN HALF the effort. [place] lifts or holds trunk or limbs and provides more than half the effort. 3-Lhstpvwoq-foszlw does ALL the effort. Patient does none of the effort to complete the activity. Or, the assistance of 2 or more helpers is required for the patient to complete the activity. If activity was not attempted, code reason: 7-Patient Refused. 9-Not Applicable-not attempted and the patient did not perform the activity before the current illness, exacerbation or injury. 10-Not Attempted due to Environmental Limitations-(lack of equipment, weather restraints, etc.). 88-Not Attempted due to Medical Conditions or Safety Concerns. Oral Hygiene (QC): 3 (Min-Mod A for standing balance) Shower/Bathe Self (QC): 3 (Mod A for sitting balance when leaning to wipe buttocks) Lower Body Dressing (QC): 5 (brief pull-up) On/Off Footwear: 2 (Max A overall. Pt able to doff socks but required assistance to thread B socks up to heel. ) Toileting Hygiene (QC): 4 (SBA) Other Treatment Pt completed toileting, showering, dressing, and oral hygiene/grooming tasks in the bathroom. He completed showering 100% seated, but required support for balance when side leaning to wipe buttocks. He completed dressing and footwear while seated in chair with arms, declining any clothes other than a pull up because he was "too hot." He stood at the sink with FWW for oral hygiene/grooming tasks, requiring v/c's to stand up and use legs to support self, pt verbalizing understanding but did not follow instructions. He required mod-max v/c's for sequencing and following directions throughout session. Several tasks were modified because pt was unable to comprehend and follow instructions. Pt used FWW to walk back to recliner, CGA. Pt sat edge of recliner and participated in dynamic seating activities to increase seated balance. Pt shows poor self awareness of deficits as he was not able to support self while doing exercises but continued to verbalize that he could. Post tx, pt left in recliner with call light in reach and all needs met. Education OT Patient Education: Correct positioning, Energy conservation, Modified ADL techniques, Progress toward Goal/Update tx plan, Purpose of tx/functional activities, Rehab process, Safety issues, Transfer techniques Teaching Recipient: Patient Teaching Methods: Discussion Response to Teaching: Verbalize Understanding, Reinforcement Needed OT Short Term Goals Short Term Goals Time Frame: Jun 05, 2022 Oral hygiene: 5 Upper body dressin OT Senior Living Goals Cuff Slitter Goals Time Frame: Jun 19, 2022 Eating (QC): 5 Oral Hygiene (QC): 6 Toileting Hygiene (QC): 6 Shower/Bathe Self (QC): 4 Upper Body Dressing (QC): 5 Lower Body Dressing (QC): 4 On/Off Footwear (QC): 4 Additional Goals: 1-Demonstrate ADL Tasks, 2-Verbalize Understanding, 3- ImproveStrength/Enrico 1=Demonstrate adherence to instructed precautions during ADL tasks. 2=Patient will verbalize/demonstrate understanding of assistive device s/modifications for ADL. 3=Patient will improve strength/tolerance for activity to enable patient to perform ADL's. OT Education/Plan Problem List/Assessment Assessment: Decreased Activ Tolerance, Decreased Safety Aware, Decreased UE Strength, Impaired Cognition, Impaired Coordination, Impaired Funct Balance, Impaired I ADL's, Impaired Self-Care Skills Discharge Recommendations Plan/Recommendations: Continue POC Treatment Plan/Plan of Care Patient would benefit from OT for education, treatment and training to promote independence in ADL's, mobility, safety and/or upper extremity function for ADL's. Plan of Care: ADL Retraining, Functional Mobility, Group Exercise/Act as Ind, UE Funct Exercise/Act, UE Neuromus Re-Ed/Coord, Visual/Perceptual Retrain Treatment Duration: Jun 19, 2022 Frequency: At least 5 of 7 days/Wk (IRF) Estimated Hrs Per Day: 1.5 hours per day Agreement: Yes Rehab Potential: Fair Time/GCodes Start Time: 09:30 Stop Time: 10:30 Total Time Billed (hr/min): 60 Billed Treatment Time 1, ADL 4 (60') CARMEN [facility] OT May 25, 2022 10:45
--- NOTE | 2022-05-25 12:18 | Physical Therapy Daily Note ---
PT Daily Note-Current Subjective Pt sitting in recliner upon arrival. Pt agrees to PT. Mental Status Patient Orientation: Person, Confused, Place Transfers SCALE: Activities may be completed with or without assistive devices. 4-Hzrtxemvux-aksvcon completes the activity by him/herself with no assistance from a helper. 5-Set-up or Clean-up Assistance-helper sets up or cleans up; patient completes activity. [place] assists only prior to or following the activity. 4-Supervision or Touching Assistance-helper provides verbal cues and/or touching/steadying and/or contact guard assistance as patient completes activity. Assistance may be provided throughout the activity or intermittently. 3-Partial/Moderate Assistance-helper does LESS THAN HALF the effort. [place] lifts, holds or supports trunk or limbs, but provides less than half the effort. 2-Substantial/Maximal Assistance-helper does MORE THAN HALF the effort. [place] lifts or holds trunk or limbs and provides more than half the effort. 5-Pcgqcjchs-whpoax does ALL the effort. Patient does none of the effort to complete the activity. Or, the assistance of 2 or more helpers is required for the patient to complete the activity. If activity was not attempted, code reason: 7-Patient Refused. 9-Not Applicable-not attempted and the patient did not perform the activity before the current illness, exacerbation or injury. 10-Not Attempted due to Environmental Limitations-(lack of equipment, weather restraints, etc.). 88-Not Attempted due to Medical Conditions or Safety Concerns. Sit to Stand (QC): 4 Weight Bearing Full Weight Bearing Full Weight Bearing Gait Training Does the Patient Walk?: Yes Distance: 150' x2 Walk 10 feet (QC): 5 Walk 50 ft with 2 Turns(QC): 5 Walk 150 ft (QC): 5 Gait Persons Needed: 1 Gait Assistive Device: FWW VC for safety and at times sequencing. Exercises Seated Therapy Exercises: Ankle pumps, Long arc quads, Hip flexion, Hip abd/add, Glut set Seated Reps: 15 NuStep Minutes: 11 NuStep Workload: 4 Treatments Declines need for BR. TF to standing and amb. in hallway. Pt uses NuStep before taking RB. PT amb. in hallway again. Pt returns to room to rest in recliner. Seated Ex reviewed. All needs met, call light in hand at end of tx. Assessment Current Status: Fair Progress Pt is confused and needs VC for safety and sequencing. VC for staying close to FWW while walking. PT Short Term Goals Short Term Goals Time Frame: May 29, 2022 Roll Left & Right: 6 Sit to lyin Lying to sitting on side of be: 4 Sit to stand: 4 Chair/udh-wq-qbwhh transfer: 4 Walk 10 feet: 4 Walk 50 feet with two turns: 4 Walk 150 feet: 4 PT Rehabilitation Aide/Scheduler Goals Custodial Goals PT Rehabilitation Aide/Scheduler Goals Time Frame: Jun 12, 2022 Roll Left & Right (QC): 6 Sit to Lying (QC): 6 Lying-Sitting on Side/Bed(QC): 6 Sit to Stand (QC): 6 Chair/Spp-hv-Aqbgg Xfer(QC): 5 Toilet Transfer (QC): 5 Car Transfer (QC): 5 Does the Patient Walk: Yes Walk 10 feet (QC): 5 Walk 50ft with 2 Turns (QC): 5 Walk 150 ft (QC): 5 Walking 10ft on Uneven Surface: 5 1 Step (curb) (QC): 4 4 Steps (QC): 4 12 Steps (QC): 88 Picking up an Object (QC): 4 (using kitchen bath designer) Wheel 50 feet with 2 turns (QC: 9 Wheel 150 feet: 9 PT Plan Problem List Problem List: Safety, Gait Treatment/Plan Treatment Plan: Continue Plan of Care Treatment Plan: Bed Mobility, Education, Functional Activity Enrico, Functional Strength, Group Therapy, Gait, Safety, Therapeutic Exercise, Transfers Treatment Duration: Jun 12, 2022 Frequency: At least 5 of 7 days/Wk (IRF) Estimated Hrs Per Day: 1.5 hours per day Patient and/or Family Agrees t: Yes Safety Risks/Education Patient Education: Gait Training, Correct Positioning, Safety Issues Teaching Recipient: Patient Teaching Methods: Discussion Response to Teaching: Reinforcement Needed Time/GCodes Time In: 1100 Time Out: 1200 Total Billed Treatment Time: 60 Total Billed Treatment 1, GT x2 (30m) & EX x2 (30m) HÉCTOR RODRIGUEZ IDENTIFIER HORSE May 25, 2022 12:18
--- NOTE | 2022-05-25 15:00 | IRF PAI BIMS ---
BIMS BIMS IRF MELVINA BIMS: IRF MELVINA BIMS Response (Comments) Value Expression of Ideas and Wants (Verbal/Non Verbal) Difficulty 2 Understanding Verbal Content Sometimes Understands 1 Should Brief Interview for Mental Status be Conducted Yes Repitition of Three Words Three (3 points) 3 What year is it right now? Missed by 1m or no answer (0 points) 0 What month is it right now? Accurate within 5 days (2 points) 0 What week is it now? Incorrect or N/A (0 points) 0 Recalls Socks No, Could Not Recall (0 points) 0 Recalls Blue Yes, No Cue Required (2 points) 2 Recalls Bed No, Could Not Recall (0 points) 0 Total 8 Brief Interview/Mental Status: No Notes: Overall Score should be 7/15 CARMEN [facility] OT May 25, 2022 14:59
--- NOTE | 2022-05-25 15:02 | Occupational Ther Daily Note ---
OT Current Status-Daily Note [facility] tx. ADL-Treatment Therapy Code Descriptions/Definitions Functional [place] Measure: 0=Not Assessed/NA 4=Minimal Assistance 1=Total Assistance 5=Supervision or Setup 2=Maximal Assistance 6=Modified [place] 3=Moderate Assistance 7=Complete IndependenceSCALE: Activities may be completed with or without assistive devices. 1-Zpmpwodkhh-dujajkn completes the activity by him/herself with no assistance from a helper. 5-Set-up or Clean-up Assistance-helper sets up or cleans up; patient completes activity. [place] assists only prior to or following the activity. 4-Supervision or Touching Assistance-helper provides verbal cues and/or touching/steadying and/or contact guard assistance as patient completes activity. Assistance may be provided throughout the activity or intermittently. 3-Partial/Moderate Assistance-helper does LESS THAN HALF the effort. [place] lifts, holds or supports trunk or limbs, but provides less than half the effort. 2-Substantial/Maximal Assistance-helper does MORE THAN HALF the effort. [place] lifts or holds trunk or limbs and provides more than half the effort. 9-Yeaxfbhdv-gnbjjc does ALL the effort. Patient does none of the effort to compl ete the activity. Or, the assistance of 2 or more helpers is required for the patient to complete the activity. If activity was not attempted, code reason: 7-Patient Refused. 9-Not Applicable-not attempted and the patient did not perform the activity before the current illness, exacerbation or injury. 10-Not Attempted due to Environmental Limitations-(lack of equipment, weather restraints, etc.). 88-Not Attempted due to Medical Conditions or Safety Concerns. Toileting Hygiene (QC): 3 (Min A for standing balance and v/c's required for sequencing) Other Treatment [facility] participated in BIMS test. Pt then completed pegboard task, placing pegs into foam pegboard based on printed pattern. Pt required maximum verbal cues throughout activity in order to correctly follow pattern, and select correct peg color. Pt requested to use bathroom, used FWW to walk to toilet, CGA. He required v/c's for sequencing as he forgot to doff pullup before toileting and [facility]. Pt required min A to stand from toilet then walked back to recliner with FWW, CGA. Post tx, pt in recliner, call light in reach and all needs met. Education OT Patient Education: Correct positioning, Energy conservation, Modified ADL techniques, Progress toward Goal/Update tx plan, Purpose of tx/functional activities, Rehab process Teaching Recipient: Patient Teaching Methods: Demonstration, Discussion Response to Teaching: Reinforcement Needed OT Short Term Goals Short Term Goals Time Frame: Jun 05, 2022 Oral hygiene: 5 Upper body dressin OT [facility] Goals Hr Business Partner Consultant Goals Time Frame: Jun 19, 2022 Eating (QC): 5 Oral Hygiene (QC): 6 Toileting Hygiene (QC): 6 Shower/Bathe Self (QC): 4 Upper Body Dressing (QC): 5 Lower Body Dressing (QC): 4 On/Off Footwear (QC): 4 Additional Goals: 1-Demonstrate ADL Tasks, 2-Verbalize Understanding, 3- ImproveStrength/Enrico 1=Demonstrate adherence to instructed precautions during ADL tasks. 2=Patient will verbalize/demonstrate understanding of assistive devices/modifications for ADL. 3=Patient will improve strength/tolerance for activity to enable patient to perform ADL's. OT Education/Plan Problem List/Assessment Assessment: Decreased Activ Tolerance, Decreased Safety Aware, Decreased UE Strength, Impaired Cognition, Impaired Coordination, Impaired Funct Balance, Impaired I ADL's, Impaired Self-Care Skills Discharge Recommendations Plan/Recommendations: Continue POC Treatment Plan/Plan of Care Patient would benefit from OT for education, treatment and training to promote independence in ADL's, mobility, safety and/or upper extremity function for ADL's. Plan of Care: ADL Retraining, Functional Mobility, Group Exercise/Act as Ind, UE Funct Exercise/Act, UE Neuromus Re-Ed/Coord, Visual/Perceptual Retrain Treatment Duration: Jun 19, 2022 Frequency: At least 5 of 7 days/Wk (IRF) Estimated Hrs Per Day: 1.5 hours per day Agreement: Yes Rehab Potential: Fair Time/GCodes Start Time: 14:45 Stop Time: 15:15 Total Time Billed (hr/min): 30 Billed Treatment Time 1, FA 2 CARMEN [facility] OT May 25, 2022 15:02
--- NOTE | 2022-05-25 15:17 | Physical Therapy Daily Note ---
PT Daily Note-Current Subjective Pt sitting in recliner upon arrival. Pt agrees to PT. Mental Status Patient Orientation: Person, Confused, Place Transfers SCALE: Activities may be completed with or without assistive devices. 6-Mpojbkydnm-inriiwl completes the activity by him/herself with no assistance from a helper. 5-Set-up or Clean-up Assistance-helper sets up or cleans up; patient completes activity. [place] assists only prior to or following the activity. 4-Supervision or Touching Assistance-helper provides verbal cues and/or touching/steadying and/or contact guard assistance as patient completes activity. Assistance may be provided throughout the activity or intermittently. 3-Partial/Moderate Assistance-helper does LESS THAN HALF the effort. [place] lifts, holds or supports trunk or limbs, but provides less than half the effort. 2-Substantial/Maximal Assistance-helper does MORE THAN HALF the effort. [place] lifts or holds trunk or limbs and provides more than half the effort. 0-Rhnngwvkp-lyogpx does ALL the effort. Patient does none of the effort to complete the activity. Or, the assistance of 2 or more helpers is required for the patient to complete the activity. If activity was not attempted, code reason: 7-Patient Refused. 9-Not Applicable-not attempted and the patient did not perform the activity before the current illness, exacerbation or injury. 10-Not Attempted due to Environmental Limitations-(lack of equipment, weather restraints, etc.). 88-Not Attempted due to Medical Conditions or Safety Concerns. Sit to Stand (QC): 4 Weight Bearing Full Weight Bearing Full Weight Bearing Gait Training Does the Patient Walk?: Yes Distance: 200' Walk 10 feet (QC): 4 Walk 50 ft with 2 Turns(QC): 4 Walk 150 ft (QC): 4 Gait Persons Needed: 1 Gait Assistive Device: FWW VC for safety and sequencing. Exercises Supine Ex: Ankle pumps, Quad Set, Glut sets, Heel Slides, Hip abd/add Supine Reps: 15 Treatments Pt completes Supine EX then TF to standing before amb. in hallway. Pt returns to recliner at end of tx. All needs met, call light in hand. Assessment Current Status: Fair Progress Pt needs VC for safety and sequencing. PT Short Term Goals Short Term Goals Time Frame: May 29, 2022 Roll Left & Right: 6 Sit to lyin Lying to sitting on side of be: 4 Sit to stand: 4 Chair/kzm-xw-hgwxz transfer: 4 Walk 10 feet: 4 Walk 50 feet with two turns: 4 Walk 150 feet: 4 PT Halfway Goals Supervisor Receiving And Processing Goals PT Halfway Goals Time Frame: Jun 12, 2022 Roll Left & Right (QC): 6 Sit to Lying (QC): 6 Lying-Sitting on Side/Bed(QC): 6 Sit to Stand (QC): 6 Chair/Ihs-du-Rblwc Xfer(QC): 5 Toilet Transfer (QC): 5 Car Transfer (QC): 5 Does the Patient Walk: Yes Walk 10 feet (QC): 5 Walk 50ft with 2 Turns (QC): 5 Walk 150 ft (QC): 5 Walking 10ft on Uneven Surface: 5 1 Step (curb) (QC): 4 4 Steps (QC): 4 12 Steps (QC): 88 Picking up an Object (QC): 4 (using textile dyer) Wheel 50 feet with 2 turns (QC: 9 Wheel 150 feet: 9 PT Plan Problem List Problem List: Safety Treatment/Plan Treatment Plan: Continue Plan of Care Treatment Plan: Bed Mobility, Education, Functional Activity Enrico, Functional Strength, Group Therapy, Gait, Safety, Therapeutic Exercise, Transfers Treatment Duration: Jun 12, 2022 Frequency: At least 5 of 7 days/Wk (IRF) Estimated Hrs Per Day: 1.5 hours per day Patient and/or Family Agrees t: Yes Safety Risks/Education Patient Education: Safety Issues Teaching Recipient: Patient Teaching Methods: Discussion Response to Teaching: Reinforcement Needed Time/GCodes Time In: 1330 Time Out: 1400 Total Billed Treatment Time: 30 Total Billed Treatment 1, EX (15m) & GT (15m) HÉCTOR RODRIGUEZ PROCESS COORDINATOR May 25, 2022 15:17
[2022-05-25 19:51] VITALS: BP 99/63
[2022-05-26 07:22] VITALS: BP 124/64
[2022-05-26] MEDS: FAMOTIDINE 20 MG (PEPCID) TABLET PO SCH ×2 (08:37→20:24)
[2022-05-26] MEDS: SENNA W/DOCUSATE (SENOKOT S) TABLET PO SCH ×2 (08:37→20:24)
[2022-05-26] MEDS: DOCUSATE SODIUM 100 MG (COLACE) CAP PO SCH ×2 (08:37→20:24)
[2022-05-26] MEDS: polyethylene glycoL POWDER 17 GM (MIRALAX) PACK PO SCH ×2 (08:37→19:38)
[2022-05-26] MEDS: FENOFIBRATE 134 MG (LOFIBRA) CAPSULE PO SCH (08:37)
[2022-05-26] MEDS: MICONAZOLE 2% POWDER (DESENEX AF) 90 GM TOP SCH ×2 (08:38→20:25)
--- NOTE | 2022-05-26 08:54 | PM&R Progress Note ---
Subjective HPI/CC On Admission Date Seen by Provider: May 26, 2022 Time Seen by Provider: 09:00 Subjective/Events-last exam 05/26/2022: No major issues BM+ No falls Participating with PT OT 05/25/2022: Patient doing well No concerns With heavy cues to keep on task 05/24/2022: Patient doing well Took a shower today No pain reported 05/23/2022: Doing well Brother at bedside Asked about pathology and I don't have access to that No pain reported Confusion noted WBC elevated from steroids Review of Systems General: Fatigue, Malaise Objective Exam Vital Signs Vital Signs Date Time Temp Pulse Resp B/P (MAP) Pulse Ox O2 Delivery O2 Flow Rate FiO2 05/26/22 20:26 Room Air 05/26/22 19:30 36.5 66 16 106/68 (81) 96 Capillary Refill : General Appearance: No Apparent Distress, WD/WN, Chronically ill, Thin HEENT: PERRL/EOMI, Normal ENT Inspection, Pharynx Normal Neck: Full Range of Motion, Normal Inspection, Non Tender, Supple, Carotid Bruit Respiratory: Chest Non Tender, Lungs Clear, Normal Breath Sounds, No Accessory Muscle Use, No Respiratory Distress Cardiovascular: Regular Rate, Rhythm, No Edema, No Gallop, No JVD, No Murmur, Normal Peripheral Pulses Gastrointestinal: Normal Bowel Sounds, No Organomegaly, No Pulsatile Mass, Non Tender, Soft Back: Normal Inspection, No CVA Tenderness, No Vertebral Tenderness Extremity: Normal Capillary Refill, Normal Inspection, Normal Range of Motion, Non Tender, No Calf Tenderness, No Pedal Edema Neurologic/Psychiatric: Alert, No Motor/Sensory Deficits, combat control manager II-XII Norm as Tested, Abnormal Gait, Depressed Affect, Disoriented, Facial Droop, Motor Weakness (2/5 lower extremities, 3/5 upper) Skin: Normal Color, Warm/Dry Lymphatic: No Adenopathy Results/Procedures Lab Patient resulted labs reviewed. FIM Transfers Therapy Code Descriptions/Definitions Functional [place] Measure: 0=Not Assessed/NA 4=Minimal Assistance 1=Total Assistance 5=Supervision or Setup 2=Maximal Assistance 6=Modified [place] 3=Moderate Assistance 7=Complete IndependenceSCALE: Activities may be completed with or without assistive devices. 3-Pperjvkcwk-wmkqkwn completes the activity by him/herself with no assistance from a helper. 5-Set-up or Clean-up Assistance-helper sets up or cleans up; patient completes activity. [place] assists only prior to or following the activity. 4-Supervision or Touching Assistance-helper provides verbal cues and/or touching/steadying and/or contact guard assistance as patient completes activity . Assistance may be provided throughout the activity or intermittently. 3-Partial/Moderate Assistance-helper does LESS THAN HALF the effort. [place] lifts, holds or supports trunk or limbs, but provides less than half the effort. 2-Substantial/Maximal Assistance-helper does MORE THAN HALF the effort. [place] lifts or holds trunk or limbs and provides more than half the effort. 7-Ballplbzd-eefpdi does ALL the effort. Patient does none of the effort to complete the activity. Or, the assistance of 2 or more helpers is required for the patient to complete the activity. If activity was not attempted, code reason: 7-Patient Refused. 9-Not Applicable-not attempted and the patient did not perform the activity before the current illness, exacerbation or injury. 10-Not Attempted due to Environmental Limitations-(lack of equipment, weather restraints, etc.). 88-Not Attempted due to Medical Conditions or Safety Concerns. Roll Left to Right (QC): 6 Sit to Lying (QC): 4 Sit to Stand (QC): 4 Chair/Tdu-ow-Xzcmf Xfer(QC): 4 Car Transfer (QC): 4 Gait Training Does the Patient Walk?: Yes Distance: 200' Walk 10 feet (QC): 4 Walk 50 ft with 2 Turns(QC): 4 Walk 150 ft (QC): 4 Walking 10ft/uneven surface-QC: 4 Gait Persons Needed: 1 Gait Assistive Device: FWW Wheelchair Training Wheel 50 ft with 2 turns (QC): 9 Wheel 150 ft (QC): 9 Stair Training 1 Step (curb) (QC): 7 4 Steps (QC): 7 12 Steps (QC): 7 Balance Picking up an Object (QC): 7 ADL-Treatment Eating (QC): 5 (Per pt report he needs assistance to open containers/packages and cut up food) Oral Hygiene (QC): 3 (Min-Mod A for standing balance) Shower/Bathe Self (QC): 3 (Mod A for sitting balance when leaning to wipe buttocks) Upper Body Dressing (QC): 3 (Min A for seated balance) Lower Body Dressing (QC): 5 (brief pull-up) On/Off Footwear (QC): 2 (Max A overall. Pt able to doff socks but required assistance to thread B socks up to heel. ) Toileting Hygiene (QC): 3 (Min A for standing balance and v/c's required for sequencing) Assessment/Plan Assessment and Plan Assess & Plan/Chief Complaint Assessment: s/p craniotomy 05/15/22 due to melanoma with mets HTN HLP Seizure risk Confusion Generalized weakness Plan: PT OT Home meds Fall risk 05/23/2022: Monitor pain Fall risk 05/24/2022: Monitor pain Steroids 05/25/2022: Continue current treatment Steroid taper per neurosurgery 05/26/2022: Monitor for falls Monitor for pain (1) S/P brain surgery ANSLEY ALSTON DO May 26, 2022 08:54
--- NOTE | 2022-05-26 10:17 | Occupational Ther Daily Note ---
OT Current Status-Daily Note Subjective Pt using restroom upon OT arrival, agreeable to tx. Mental Status/Objective Patient Orientation: Person, Confused, Mumbles ADL-Treatment Therapy Code Descriptions/Definitions Functional [place] Measure: 0=Not Assessed/NA 4=Minimal Assistance 1=Total Assistance 5=Supervision or Setup 2=Maximal Assistance 6=Modified [place] 3=Moderate Assistance 7=Complete IndependenceSCALE: Activities may be completed with or without assistive devices. 6-Vxbwbpyswu-gftgeqc completes the activity by him/herself with no assistance from a helper. 5-Set-up or Clean-up Assistance-helper sets up or cleans up; patient completes activity. [place] assists only prior to or following the activity. 4-Supervision or Touching Assistance-helper provides verbal cues and/or touching/steadying and/or contact guard assistance as patient completes activity. Assistance may be provided throughout the activity or intermittently. 3-Partial/Moderate Assistance-helper does LESS THAN HALF the effort. [place] lifts, holds or supports trunk or limbs, but provides less than half the effort. 2-Substantial/Maximal Assistance-helper does MORE THAN HALF the effort. [place] lifts or holds trunk or limbs and provides more than half the effort. 1-Yeaetbrfu-nhiwff does ALL the effort. Patient does none of the effort to complete the activity. Or, the assistance of 2 or more helpers is required for the patient to complete the activity. If activity was not attempted, code reason: 7-Patient Refused. 9-Not Applicable-not attempted and the patient did not perform the activity before the current illness, exacerbation or injury. 10-Not Attempted due to Environmental Limitations-(lack of equipment, weather restraints, etc.). 88-Not Attempted due to Medical Conditions or Safety Concerns. Oral Hygiene (QC): 3 (Min A for standing balance and v/c's for sequencing ) Bathing Location: L Arm, R Arm, Perineal Area Shower/Bathe Self (QC): 4 (SBA. 100% seated) Lower Body Dressing (QC): 3 (Min A to thread LLE through pull up) On/Off Footwear: 4 (SBA for seated balance) Toileting Hygiene (QC): 3 (Min A to manage clothing and standing balance) Other Treatment After completing toileting, pt completed showering, dressing, footwear, and oral hygiene/grooming tasks in the bathroom. He completed dressing while seated on SC, and he stood at the sink to complete oral hygiene/grooming tasks. Pt required CGA-Min A for standing balance at the sink and v/c's for sequencing throughout self-care tasks. Pt then walked to therapy gym to participate in BUE exercises and functional activities. He was given v/c's for directions to gym, requiring tactile, visual, and v/c's to turn to his right as he would attempt to turn left each time he was told to go right. He sat on the edge of the therapy mat and participated in the following activities to increase his dynamic sitting balance and core strength: reaching in all planes to retrieve rings, ring arc, and nuts and bolts. He remained seated on the mat and completed 2x10 of the following BUE exercises with a 2lb weighted dowel azael: shoulder flexion, bicep curls, and chest press). Pt tends to be impulsive, rushes through activities, and he does not appear to know when he is tired, so he needed v/c's to complete activities/exercises in a slow and controlled manner and take RBs PRN. He stood at the table and duplicated simple peg board patterns, v/c's throughout to remember directions and match the pattern. Pt took short seated RB then stood again to simulate dressing task with graded clothespins, reaching around waistline/pant line. He used FWW to walk back to room, CGA, and returned to recliner. Post tx, pt left in recliner with call light in reach and all needs met. Education OT Patient Education: Correct positioning, Energy conservation, Exercise program, Modified ADL techniques, Progress toward Goal/Update tx plan, Purpose of tx/functional activities, Rehab process, Safety issues, Transfer techniques Teaching Recipient: Patient Teaching Methods: Demonstration, Discussion Response to Teaching: Verbalize Understanding, Reinforcement Needed OT Short Term Goals Short Term Goals Time Frame: Jun 05, 2022 Oral hygiene: 5 Upper body dressin OT Button Tacker Goals Button Tacker Goals Time Frame: Jun 19, 2022 Eating (QC): 5 Oral Hygiene (QC): 6 Toileting Hygiene (QC): 6 Shower/Bathe Self (QC): 4 Upper Body Dressing (QC): 5 Lower Body Dressing (QC): 4 On/Off Footwear (QC): 4 Additional Goals: 1-Demonstrate ADL Tasks, 2-Verbalize Understanding, 3- ImproveStrength/Enrico 1=Demonstrate adherence to instructed precautions during ADL tasks. 2=Patient will verbalize/demonstrate understanding of assistive devices/modifications for ADL. 3=Patient will improve strength/tolerance for activity to enable patient to perform ADL's. OT Education/Plan Problem List/Assessment Assessment: Decreased Activ Tolerance, Decreased Safety Aware, Decreased UE Strength, Impaired Cognition, Impaired Coordination, Impaired Funct Balance, Impaired I ADL's, Impaired Self-Care Skills Discharge Recommendations Plan/Recommendations: Continue POC Treatment Plan/Plan of Care Patient would benefit from OT for education, treatment and training to promote independence in ADL's, mobility, safety and/or upper extremity function for ADL' s. Plan of Care: ADL Retraining, Functional Mobility, Group Exercise/Act as Ind, UE Funct Exercise/Act, UE Neuromus Re-Ed/Coord, Visual/Perceptual Retrain Treatment Duration: Jun 19, 2022 Frequency: At least 5 of 7 days/Wk (IRF) Estimated Hrs Per Day: 1.5 hours per day Agreement: Yes Rehab Potential: Fair Time/GCodes Start Time: 09:00 Stop Time: 10:15 Total Time Billed (hr/min): 75 Billed Treatment Time 1, ADL 2 (35'), FA 3 (40') CARMEN MC OT May 26, 2022 10:17
--- NOTE | 2022-05-26 12:46 | Physical Therapy Daily Note ---
PT Daily Note-Current Subjective Pt sitting in recliner visiting w/friend upon arrival. Pt agrees to PT after explanation of what PT does. Friend leaves at this time. Pain Location: No Pain Reported Mental Status Patient Orientation: Person, Confused Transfers SCALE: Activities may be completed with or without assistive devices. 3-Mkjnzdsgdb-rhcmtbm completes the activity by him/herself with no assistance from a helper. 5-Set-up or Clean-up Assistance-helper sets up or cleans up; patient completes activity. [place] assists only prior to or following the activity. 4-Supervision or Touching Assistance-helper provides verbal cues and/or touching/steadying and/or contact guard assistance as patient completes activity. Assistance may be provided throughout the activity or intermittently. 3-Partial/Moderate Assistance-helper does LESS THAN HALF the effort. [place] lifts, holds or supports trunk or limbs, but provides less than half the effort. 2-Substantial/Maximal Assistance-helper does MORE THAN HALF the effort. [place] lifts or holds trunk or limbs and provides more than half the effort. 7-Txvnqrpfa-btrkny does ALL the effort. Patient does none of the effort to complete the activity. Or, the assistance of 2 or more helpers is required for the patient to complete the activity. If activity was not attempted, code reason: 7-Patient Refused. 9-Not Applicable-not attempted and the patient did not perform the activity before the current illness, exacerbation or injury. 10-Not Attempted due to Environmental Limitations-(lack of equipment, weather restraints, etc.). 88-Not Attempted due to Medical Conditions or Safety Concerns. Sit to Stand (QC): 5 Weight Bearing Full Weight Bearing Full Weight Bearing Gait Training Does the Patient Walk?: Yes Distance: 250', 350' Walk 10 feet (QC): 5 Walk 50 ft with 2 Turns(QC): 5 Walk 150 ft (QC): 5 Gait Persons Needed: 1 Gait Assistive Device: FWW VC given for staying closer to FWW as well as encouraged RB as pt looked fatigued although pt reported feeling fine. Treatments After pt's friend leaves, pt stands from recliner and amb. in hallway taking RB as needed. Pt takes RB before amb. again. PT discuses safety techniques for sit to stand & vice versa, walking and keeping FWW close. Pt is able to complete Seated EX with TC & VC. Pt returns to room to rest in recliner for lunch. All needs met, call light in hand. Assessment Current Status: Fair Progress Pt needs VC for safety. PT Short Term Goals Short Term Goals Time Frame: May 29, 2022 Roll Left & Right: 6 Sit to lyin Lying to sitting on side of be: 4 Sit to stand: 4 Chair/zvv-zt-ggusp transfer: 4 Walk 10 feet: 4 Walk 50 feet with two turns: 4 Walk 150 feet: 4 PT Ship Captain Goals Senior Care Goals PT Senior Care Goals Time Frame: Jun 12, 2022 Roll Left & Right (QC): 6 Sit to Lying (QC): 6 Lying-Sitting on Side/Bed(QC): 6 Sit to Stand (QC): 6 Chair/Dtb-rv-Pxrft Xfer(QC): 5 Toilet Transfer (QC): 5 Car Transfer (QC): 5 Does the Patient Walk: Yes Walk 10 feet (QC): 5 Walk 50ft with 2 Turns (QC): 5 Walk 150 ft (QC): 5 Walking 10ft on Uneven Surface: 5 1 Step (curb) (QC): 4 4 Steps (QC): 4 12 Steps (QC): 88 Picking up an Object (QC): 4 (using horticulture supervisor) Wheel 50 feet with 2 turns (QC: 9 Wheel 150 feet: 9 PT Plan Problem List Problem List: Activity Tolerance, Safety Treatment/Plan Treatment Plan: Continue Plan of Care Treatment Plan: Bed Mobility, Education, Functional Activity Enrico, Functional Strength, Group Therapy, Gait, Safety, Therapeutic Exercise, Transfers Treatment Duration: Jun 12, 2022 Frequency: At least 5 of 7 days/Wk (IRF) Estimated Hrs Per Day: 1.5 hours per day Patient and/or Family Agrees t: Yes Safety Risks/Education Patient Education: Gait Training, Transfer Techniques, Correct Positioning, Safety Issues Teaching Recipient: Patient Teaching Methods: Discussion Response to Teaching: Reinforcement Needed Time/GCodes Time In: 1100 Time Out: 1200 Total Billed Treatment Time: 60 Total Billed Treatment 1, EX (15m), GT x2 (30m) & FA (15m) HÉCTOR RODRIGUEZ TAPE LIBRARIAN May 26, 2022 12:46
--- NOTE | 2022-05-26 14:08 | ST Cognitive Linguistic Eval ---
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 Pt willing to participate in cognitive evaluation. Pt required occasional redirection and reinforcements in order to participate. Language Eval: Auditory Comprehends Simple Yes/No Ques: Functional Follows 1-Step Commands: Functional Follows Complex Directions: Moderate Follows General Conversations: Mild Language Eval: Verbal Language Completes Spontaneous Greeting: Functional Produces Auto, Serial Info: Functional Imitates Simple Words/Phrases: Functional Word Finding: Functional Requests Basic Needs: Functional States Basic Personal Info: Functional Cognitive Patient Orientation Pt oriented to self. Not oriented to date, place, or time. Objective Cognitive Domain Attention: Mild Memory: Severe Problem Solving: Severe Executive Functions: Severe Visuospatial Skills: Severe Composite Severity Rating: Severe Clock Drawing Severity Rating: Severe Objective Formal/Standardized Tests [facility] Status ([facility]) Examination Results indicating dementia range cognitive-linguistic impairment Oral Motor/Speech Production Pt demonstrates occasional low vocal volume and "mumbling" speech. Oral motor skills otherwise functional and no apraxia was observed. Impression Pt demonstrates severe cognitive-linguistic communication deficits and would benefit from skilled ST to improve in the areas of memory and problem solving Speech Patient Assess Expression of Ideas/Wants: Frequently (2) Understanding Verbal Content: Usually Understands (3) Brief Interview-Mental Status: Yes Repetition of Three Words: One (1) Temporal Orientation: Year: Missed by 2-5 years (1) Temporal Orientation: Month: No answer (0) Temporal Orientation: Day: Incorrect or No Answer(0) Recall : Wear to say "Sock": No, could not recall (0) Recall : Color: No, could not recall (0) Recall : Bed: No, could not recall (0) Memory/Recall Ability: None of the above were recalled Speech Short Term Goals Short Term Goals Short Term Goals The patient will display 80% accuracy with memory and functional problem solving exercises, given minimal verbal/visual cues. Speech Balloon Artist Goals Balloon Artist Goals The patient will display improved cognitive linguistic function for safe discharge to the least restrictive environment Speech-Plan Patient/Family Goals Patient/Family Goals: return to home Treatment Plan Speech Therapy Treatment Plan: Continue Plan of Care Pt demonstrates severe cognitive deficits and would benefit from skilled ST services Treatment Duration: Jun 08, 2022 Frequency: 5 times per week Estimated Hrs Per Day: .5 hour per day Rehab Potential: Fair Barriers to Learning: cognition Pt/Family Agrees to Plan: Yes Safety Risks/Education Teaching Recipient: Patient Teaching Methods: Discussion Response to Teaching: Verbalize Understanding Education Topics Provided: evaluation results and memory strategies Time Speech Therapy Time In: 11:55 Speech Therapy Time Out: 12:25 Total Billed Time: 30 Billed Treatment Time 1, SPSNDCOMP BRITT Vasquez May 26, 2022 14:08
--- NOTE | 2022-05-26 14:46 | Physical Therapy Daily Note ---
PT Daily Note-Current Subjective Pt just laid down Supine in bed upon arrival. Pt agrees to PT for Supine Ex. Mental Status Patient Orientation: Person, Confused Transfers SCALE: Activities may be completed with or without assistive devices. 8-Wpdffdgsvz-yejkllk completes the activity by him/herself with no assistance from a helper. 5-Set-up or Clean-up Assistance-helper sets up or cleans up; patient completes activity. [place] assists only prior to or following the activity. 4-Supervision or Touching Assistance-helper provides verbal cues and/or touching/steadying and/or contact guard assistance as patient completes activity. Assistance may be provided throughout the activity or intermittently. 3-Partial/Moderate Assistance-helper does LESS THAN HALF the effort. [place] l ifts, holds or supports trunk or limbs, but provides less than half the effort. 2-Substantial/Maximal Assistance-helper does MORE THAN HALF the effort. [place] lifts or holds trunk or limbs and provides more than half the effort. 3-Tbijojtap-lnxrxd does ALL the effort. Patient does none of the effort to complete the activity. Or, the assistance of 2 or more helpers is required for t he patient to complete the activity. If activity was not attempted, code reason: 7-Patient Refused. 9-Not Applicable-not attempted and the patient did not perform the activity before the current illness, exacerbation or injury. 10-Not Attempted due to Environmental Limitations-(lack of equipment, weather restraints, etc.). 88-Not Attempted due to Medical Conditions or Safety Concerns. Weight Bearing Full Weight Bearing Full Weight Bearing Exercises Supine Ex: Ankle pumps, Quad Set, Heel Slides, Straight leg raise, Hip abd/add Supine Reps: 15 Treatments Pt completes Supine EX then resting in bed at end of tx. All needs met, call light in hand. Assessment Current Status: Fair Progress Pt needs VC to complete tasks as pt remains confused. PT Short Term Goals Short Term Goals Time Frame: May 29, 2022 Roll Left & Right: 6 Sit to lyin Lying to sitting on side of be: 4 Sit to stand: 4 Chair/cet-il-qxydz transfer: 4 Walk 10 feet: 4 Walk 50 feet with two turns: 4 Walk 150 feet: 4 PT [facility] Goals [facility] Goals PT [facility] Goals Time Frame: Jun 12, 2022 Roll Left & Right (QC): 6 Sit to Lying (QC): 6 Lying-Sitting on Side/Bed(QC): 6 Sit to Stand (QC): 6 Chair/Tkk-bo-Qiorx Xfer(QC): 5 Toilet Transfer (QC): 5 Car Transfer (QC): 5 Does the Patient Walk: Yes Walk 10 feet (QC): 5 Walk 50ft with 2 Turns (QC): 5 Walk 150 ft (QC): 5 Walking 10ft on Uneven Surface: 5 1 Step (curb) (QC): 4 4 Steps (QC): 4 12 Steps (QC): 88 Picking up an Object (QC): 4 (using district representative) Wheel 50 feet with 2 turns (QC: 9 Wheel 150 feet: 9 PT Plan Treatment/Plan Treatment Plan: Continue Plan of Care Treatment Plan: Bed Mobility, Education, Functional Activity Enrico, Functional Strength, Group Therapy, Gait, Safety, Therapeutic Exercise, Transfers Treatment Duration: Jun 12, 2022 Frequency: At least 5 of 7 days/Wk (IRF) Estimated Hrs Per Day: 1.5 hours per day Patient and/or Family Agrees t: Yes Time/GCodes Time In: 1400 Time Out: 1415 Total Billed Treatment Time: 15 Total Billed Treatment 1, EX (15m) HÉCTOR RODRIGUEZ DERRICK BOAT LEVER OPERATOR May 26, 2022 14:46
[2022-05-26 19:30] VITALS: BP 106/68
--- NOTE | 2022-05-27 07:11 | PM&R Progress Note ---
Subjective HPI/CC On Admission Date Seen by Provider: May 27, 2022 Time Seen by Provider: 09:00 Subjective/Events-last exam 05/27/2022: Pt is doing very well Chronic bp is 90 Incontinent at night Bowels are moving 05/26/2022: No major issues BM+ No falls Participating with PT OT 05/25/2022: Patient doing well No concerns With heavy cues to keep on task 05/24/2022: Patient doing well Took a shower today No pain reported 05/23/2022: Doing well Brother at bedside Asked about pathology and I don't have access to that No pain reported Confusion noted WBC elevated from steroids Review of Systems General: Fatigue, Malaise Neurological: Confusion Objective Exam Vital Signs Vital Signs Date Time Temp Pulse Resp B/P (MAP) Pulse Ox O2 Delivery O2 Flow Rate FiO2 05/27/22 20:15 Room Air 05/27/22 19:57 36.1 89 16 104/60 (75) 97 Capillary Refill : General Appearance: No Apparent Distress, WD/WN, Chronically ill, Thin HEENT: PERRL/EOMI, Normal ENT Inspection, Pharynx Normal Neck: Full Range of Motion, Normal Inspection, Non Tender, Supple, Carotid Bruit Respiratory: Chest Non Tender, Lungs Clear, Normal Breath Sounds, No Accessory Muscle Use, No Respiratory Distress Cardiovascular: Regular Rate, Rhythm, No Edema, No Gallop, No JVD, No Murmur, Normal Peripheral Pulses Gastrointestinal: Normal Bowel Sounds, No Organomegaly, No Pulsatile Mass, Non Tender, Soft Back: Normal Inspection, No CVA Tenderness, No Vertebral Tenderness Extremity: Normal Capillary Refill, Normal Inspection, Normal Range of Motion, Non Tender, No Calf Tenderness, No Pedal Edema Neurologic/Psychiatric: Alert, No Motor/Sensory Deficits, pattern gater II-XII Norm as Tested, Abnormal Gait, Depressed Affect, Disoriented, Facial Droop, Motor Weakness (2/5 lower extremities, 3/5 upper) Skin: Normal Color, Warm/Dry Lymphatic: No Adenopathy Results/Procedures Lab Patient resulted labs reviewed. FIM Transfers Therapy Code Descriptions/Definitions Functional [place] Measure: 0=Not Assessed/NA 4=Minimal Assistance 1=Total Assistance 5=Supervision or Setup 2=Maximal Assistance 6=Modified [place] 3=Moderate Assistance 7=Complete IndependenceSCALE: Activities may be completed with or without assistive devices. 8-Gqmlnlwdrt-vmrartu completes the activity by him/herself with no assistance from a helper. 5-Set-up or Clean-up Assistance-helper sets up or cleans up; patient completes activity. [place] assists only prior to or following the activity. 4-Supervision or Touching Assistance-helper provides verbal cues and/or touching/steadying and/or contact guard assistance as patient completes activity. Assistance may be provided throughout the activity or intermittently. 3-Partial/Moderate Assistance-helper does LESS THAN HALF the effort. [place] lifts, holds or supports trunk or limbs, but provides less than half the effort. 2-Substantial/Maximal Assistance-helper does MORE THAN HALF the effort. [place] lifts or holds trunk or limbs and provides more than half the effort. 0-Zisquzslj-mpyyvt does ALL the effort. Patient does none of the effort to complete the activity. Or, the assistance of 2 or more helpers is required for the patient to complete the activity. If activity was not attempted, code reason: 7-Patient Refused. 9-Not Applicable-not attempted and the patient did not perform the activity before the current illness, exacerbation or injury. 10-Not Attempted due to Environmental Limitations-(lack of equipment, weather restraints, etc.). 88-Not Attempted due to Medical Conditions or Safety Concerns. Roll Left to Right (QC): 6 Sit to Lying (QC): 4 Sit to Stand (QC): 5 Chair/Zmj-ff-Cdmxe Xfer(QC): 4 Car Transfer (QC): 4 Gait Training Does the Patient Walk?: Yes Distance: 250', 350' Walk 10 feet (QC): 5 Walk 50 ft with 2 Turns(QC): 5 Walk 150 ft (QC): 5 Walking 10ft/uneven surface-QC: 4 Gait Persons Needed: 1 Gait Assistive Device: FWW Wheelchair Training Does the Pt Use a Wheelchair?: No Wheel 50 ft with 2 turns (QC): 9 Wheel 150 ft (QC): 9 Type of Wheelchair: N/A Stair Training 1 Step (curb) (QC): 7 4 Steps (QC): 7 12 Steps (QC): 7 Balance Picking up an Object (QC): 7 ADL-Treatment Eating (QC): 5 (Per pt report he needs assistance to open containers/packages and cut up food) Oral Hygiene (QC): 3 (Min A for standing balance and v/c's for sequencing ) Bathing Location: L Arm, R Arm, Perineal Area Shower/Bathe Self (QC): 4 (SBA. 100% seated) Upper Body Dressing (QC): 3 (Min A for seated balance) Lower Body Dressing (QC): 3 (Min A to thread LLE through pull up) On/Off Footwear (QC): 4 (SBA for seated balance) Toileting Hygiene (QC): 3 (Min A to manage clothing and standing balance) Assessment/Plan Assessment and Plan Assess & Plan/Chief Complaint Assessment: s/p craniotomy 05/15/22 due to melanoma with mets HTN HLP Seizure risk Confusion Generalized weakness Incontinence Plan: PT OT Home meds Fall risk 05/23/2022: Monitor pain Fall risk 05/24/2022: Monitor pain Steroids 05/25/2022: Continue current treatment Steroid taper per neurosurgery 05/26/2022: Monitor for falls Monitor for pain 05/27/2022: Monitor incontinence (1) S/P brain surgery ANSLEY ALSTON DO May 27, 2022 07:11
[2022-05-27 07:41] VITALS: BP 94/54
[2022-05-27] MEDS: DOCUSATE SODIUM 100 MG (COLACE) CAP PO SCH ×2 (08:23→20:12)
[2022-05-27] MEDS: FAMOTIDINE 20 MG (PEPCID) TABLET PO SCH ×2 (08:23→20:12)
[2022-05-27] MEDS: FENOFIBRATE 134 MG (LOFIBRA) CAPSULE PO SCH (08:23)
[2022-05-27] MEDS: MICONAZOLE 2% POWDER (DESENEX AF) 90 GM TOP SCH ×2 (08:24→20:13)
[2022-05-27] MEDS: polyethylene glycoL POWDER 17 GM (MIRALAX) PACK PO SCH ×2 (09:00→19:51)
[2022-05-27] MEDS: SENNA W/DOCUSATE (SENOKOT S) TABLET PO SCH ×2 (09:57→20:12)
--- NOTE | 2022-05-27 10:15 | Occupational Ther Daily Note ---
OT Current Status-Daily Note Subjective Pt seated in recliner upon OT arrival, agreeable to tx. Mental Status/Objective Patient Orientation: Person, Confused, Mumbles ADL-Treatment Therapy Code Descriptions/Definitions Functional [place] Measure: 0=Not Assessed/NA 4=Minimal Assistance 1=Total Assistance 5=Supervision or Setup 2=Maximal Assistance 6=Modified [place] 3=Moderate Assistance 7=Complete IndependenceSCALE: Activities may be completed with or without assistive devices. 4-Gkiyyysblx-offolbe completes the activity by him/herself with no assistance from a helper. 5-Set-up or Clean-up Assistance-helper sets up or cleans up; patient completes activity. [place] assists only prior to or following the activity. 4-Supervision or Touching Assistance-helper provides verbal cues and/or touching/steadying and/or contact guard assistance as patient completes activity. Assistance may be provided throughout the activity or intermittently. 3-Partial/Moderate Assistance-helper does LESS THAN HALF the effort. [place] lifts, holds or supports trunk or limbs, but provides less than half the effort. 2-Substantial/Maximal Assistance-helper does MORE THAN HALF the effort. [place] lifts or holds trunk or limbs and provides more than half the effort. 0-Phkfkdqge-bbbfsx does ALL the effort. Patient does none of the effort to complete the activity. Or, the assistance of 2 or more helpers is required for the patient to complete the activity. If activity was not attempted, code reason: 7-Patient Refused. 9-Not Applicable-not attempted and the patient did not perform the activity be fore the current illness, exacerbation or injury. 10-Not Attempted due to Environmental Limitations-(lack of equipment, weather restraints, etc.). 88-Not Attempted due to Medical Conditions or Safety Concerns. Eating (QC): 5 Shower/Bathe Self (QC): 3 (Min A for standing balance when bathing periarea/buttocks) Upper Body Dressing (QC): 5 Lower Body Dressing (QC): 3 (Min A overall. Pt required assistance to thread BLE through brief and v/c's for sequencing with pants) On/Off Footwear: 5 Toileting Hygiene (QC): 3 (Min A for standing balance when wiping periarea/buttocks and hiking pants) Other Treatment Pt required min A to stand from recliner but was able to use FWW and walk to bathroom, [facility]. He completed toileting, showering, dressing, and grooming tasks in the bathroom. He donned brief and gripper socks while seated on SC, but completed dressing while sitting on chair without arms to increase dynamic sitting balance while dressing. Pt had no LOB while dressing in chair. Afterwards, pt walked to therapy gym with FWW, CGA, requiring max verbal and tactile cues to keep FWW close to him. He verbalized understanding of this safety concern, but continued to keep FWW further away. OT had to stop pt and pull FWW closer, but he would push it further away within a few steps. He completed two shape designs (tangrams) while standing at the white board with longest standing time being 6minutes. This activity addressed standing activity tolerance, sequencing, and visual perception skills. He then completed three different BUE exercises to increase UE strength needed for functional transfers. He completed 2x10 of the following exercises with a 2lb weighted dowel azael: shoulder flexion, bicep curls, and overhead extension. Pt walked back to room with FWW, CGA, and returned to recliner. Post tx, pt left in recliner with call light in reach and all needs met. Education OT Patient Education: Correct positioning, Energy conservation, Modified ADL techniques, Progress toward Goal/Update tx plan, Purpose of tx/functional activities, Rehab process, Safety issues, Transfer techniques Teaching Recipient: Patient Teaching Methods: Demonstration, Discussion Response to Teaching: Verbalize Understanding, Return Demonstration, Reinforcement Needed OT Short Term Goals Short Term Goals Time Frame: Jun 05, 2022 Oral hygiene: 5 Upper body dressin OT [facility] Goals [facility] Goals Time Frame: Jun 19, 2022 Eating (QC): 5 Oral Hygiene (QC): 6 Toileting Hygiene (QC): 6 Shower/Bathe Self (QC): 4 Upper Body Dressing (QC): 5 Lower Body Dressing (QC): 4 On/Off Footwear (QC): 4 Additional Goals: 1-Demonstrate ADL Tasks, 2-Verbalize Understanding, 3- ImproveStrength/Enrico 1=Demonstrate adherence to instructed precautions during ADL tasks. 2=Patient will verbalize/demonstrate understanding of assistive devices/modifications for ADL. 3=Patient will improve strength/tolerance for activity to enable patient to perform ADL's. OT Education/Plan Problem List/Assessment Assessment: Decreased Activ Tolerance, Decreased Safety Aware, Decreased UE Strength, Impaired Cognition, Impaired Coordination, Impaired Funct Balance, Impaired I ADL's, Impaired Self-Care Skills Discharge Recommendations Plan/Recommendations: Continue POC Treatment Plan/Plan of Care Patient would benefit from OT for education, treatment and training to promote independence in ADL's, mobility, safety and/or upper extremity function for ADL's. Plan of Care: ADL Retraining, Functional Mobility, Group Exercise/Act as Ind, UE Funct Exercise/Act, UE Neuromus Re-Ed/Coord, Visual/Perceptual Retrain Treatment Duration: Jun 19, 2022 Frequency: At least 5 of 7 days/Wk (IRF) Estimated Hrs Per Day: 1.5 hours per day Agreement: Yes Rehab Potential: Fair Time/GCodes Start Time: 09:00 Stop Time: 10:15 Total Time Billed (hr/min): 75 Billed Treatment Time 1, ADL 3 (40'), FA 2 (35') CARMEN [facility] OT May 27, 2022 10:15
--- NOTE | 2022-05-27 10:26 | Speech Therapy Daily Note ---
Speech Daily Progress Note Subjective Date Seen by Provider: May 27, 2022 Time Seen by Provider: 08:30 The patient was seated upright in his recliner, awake and alert upon entrance to his room by the clinician. The patient greeted the clinician appropriately and was agreeable to participation in the cognitive linguistic treatment session. Objective The patient and clinician completed structured conversation regarding the patient's home environment, safety procedures, and the patient's current level of cognitive function and ability. Per patient, he shares house responsibilities with his . The patient stated he occasionally completed laundry, cooking, and continues to drive. Additionally, the patient stated his monthly payments are removed automatically from his account. The patient displays consistent confusion, requiring maximum redirection and repetition of instructions and questions. The patient appears hard of hearing but denied hearing difficulty throughout the session. The patient initially stated he lived in [place], however, later stated he lived in [place]. At times, the patient was difficult to redirect regardless of verbal cues. Assessment Assessment Current Status: Poor Progress Treatment Plan Continue Plan of Care Speech Short Term Goals Short Term Goals Short Term Goals The patient will display 80% accuracy with memory and functional problem solving exercises, given minimal verbal/visual cues. Speech Retirement Goals [employer] Electrician Goals The patient will display improved cognitive linguistic function for safe discharge to the least restrictive environment Speech-Plan Treatment Plan Speech Therapy Treatment Plan: Continue Plan of Care Treatment Duration: Jun 08, 2022 Frequency: 5 times per week Estimated Hrs Per Day: .5 hour per day Rehab Potential: Fair Safety Risks/Education Teaching Recipient: Patient Teaching Methods: Discussion Response to Teaching: Reinforcement Needed Education Topics Provided: Plan of Care Time Speech Therapy Time In: 08:30 Speech Therapy Time Out: 09:00 Total Billed Time: 30 Billed Treatment Time 1KASEYJONATHON TAMARA Trevizo May 27, 2022 10:26
--- NOTE | 2022-05-27 12:10 | Physical Therapy Daily Note ---
PT Daily Note-Current Subjective Pt sitting in recliner upon arrival. Pt agrees to PT. Mental Status Patient Orientation: Person, Confused, Place Transfers SCALE: Activities may be completed with or without assistive devices. 2-Gcuraaxcbh-pkxfaei completes the activity by him/herself with no assistance from a helper. 5-Set-up or Clean-up Assistance-helper sets up or cleans up; patient completes activity. [place] assists only prior to or following the activity. 4-Supervision or Touching Assistance-helper provides verbal cues and/or touching/steadying and/or contact guard assistance as patient completes activity. Assistance may be provided throughout the activity or intermittently. 3-Partial/Moderate Assistance-helper does LESS THAN HALF the effort. [place] lifts, holds or supports trunk or limbs, but provides less than half the effort. 2-Substantial/Maximal Assistance-helper does MORE THAN HALF the effort. [place] lifts or holds trunk or limbs and provides more than half the effort. 1-Kwomjkxbe-jvlamf does ALL the effort. Patient does none of the effort to complete the activity. Or, the assistance of 2 or more helpers is required for the patient to complete the activity. If activity was not attempted, code reason: 7-Patient Refused. 9-Not Applicable-not attempted and the patient did not perform the activity before the current illness, exacerbation or injury. 10-Not Attempted due to Environmental Limitations-(lack of equipment, weather restraints, etc.). 88-Not Attempted due to Medical Conditions or Safety Concerns. Sit to Stand (QC): 5 Weight Bearing Full Weight Bearing Full Weight Bearing Gait Training Does the Patient Walk?: Yes Distance: 500' Walk 10 feet (QC): 5 Walk 50 ft with 2 Turns(QC): 4 Walk 150 ft (QC): 4 Gait Persons Needed: 1 Gait Assistive Device: FWW VC to keep FWW close to pt. Exercises NuStep Minutes: 10 NuStep Workload: 4 Treatments [id number]: TF to standing & decline need for BR. Pt amb. in hallway then uses NuStep before taking short RB. Pt amb. in hallway again and returns to room to rest in recliner with all needs met, call light in hand. [id number]: Pt sitting in recliner and pt asks to have new sheet for chair so pt TF to standing and repositioned to comfort. All needs met, call light in hand. Assessment Current Status: Good Progress Pt has improved with mobility but can be impulsive and needs VC for safety and sequencing at times. PT Short Term Goals Short Term Goals Time Frame: May 29, 2022 Roll Left & Right: 6 Sit to lyin Lying to sitting on side of be: 4 Sit to stand: 4 Chair/fyb-vs-bnfwx transfer: 4 Walk 10 feet: 4 Walk 50 feet with two turns: 4 Walk 150 feet: 4 PT Long-Term Goals Tower Cleaner Goals PT Tower Cleaner Goals Time Frame: Jun 12, 2022 Roll Left & Right (QC): 6 Sit to Lying (QC): 6 Lying-Sitting on Side/Bed(QC): 6 Sit to Stand (QC): 6 Chair/Yse-xg-Addqe Xfer(QC): 5 Toilet Transfer (QC): 5 Car Transfer (QC): 5 Does the Patient Walk: Yes Walk 10 feet (QC): 5 Walk 50ft with 2 Turns (QC): 5 Walk 150 ft (QC): 5 Walking 10ft on Uneven Surface: 5 1 Step (curb) (QC): 4 4 Steps (QC): 4 12 Steps (QC): 88 Picking up an Object (QC): 4 (using autotransfusionist) Wheel 50 feet with 2 turns (QC: 9 Wheel 150 feet: 9 PT Plan Problem List Problem List: Activity Tolerance, Safety Treatment/Plan Treatment Plan: Continue Plan of Care Treatment Plan: Bed Mobility, Education, Functional Activity Enrico, Functional Strength, Group Therapy, Gait, Safety, Therapeutic Exercise, Transfers Treatment Duration: Jun 12, 2022 Frequency: At least 5 of 7 days/Wk (IRF) Estimated Hrs Per Day: 1.5 hours per day Patient and/or Family Agrees t: Yes Safety Risks/Education Patient Education: Safety Issues Teaching Recipient: Patient Teaching Methods: Discussion Response to Teaching: Reinforcement Needed Time/GCodes Time In: 1100 Time Out: 1200 Total Billed Treatment Time: 60 Total Billed Treatment [id number]: 1, GT x2 (30m), EX (15m) & FA (15m) [id number]: 1, FA (15m) HÉCTOR RODRIGUEZ CASHIER COURTESY BOOTH May 27, 2022 12:10
[2022-05-27 19:57] VITALS: BP 104/60
--- NOTE | 2022-05-28 05:57 | PM&R Progress Note ---
Subjective HPI/CC On Admission Date Seen by Provider: May 28, 2022 Time Seen by Provider: 10:30 Subjective/Events-last exam 05/28/2022: Patient seems to be ambulating well No falls ADL's are improving 05/27/2022: Pt is doing very well Chronic bp is 90 Incontinent at night Bowels are moving 05/26/2022: No major issues BM+ No falls Participating with PT OT 05/25/2022: Patient doing well No concerns With heavy cues to keep on task 05/24/2022: Patient doing well Took a shower today No pain reported 05/23/2022: Doing well Brother at bedside Asked about pathology and I don't have access to that No pain reported Confusion noted WBC elevated from steroids Review of Systems General: Fatigue, Malaise Genitourinary: Incontinence Neurological: Confusion Objective Exam Vital Signs Vital Signs Date Time Temp Pulse Resp B/P (MAP) Pulse Ox O2 Delivery O2 Flow Rate FiO2 05/28/22 20:08 Room Air 05/28/22 19:58 36.7 81 20 100/62 (75) 97 Capillary Refill : General Appearance: No Apparent Distress, WD/WN, Chronically ill, Thin HEENT: PERRL/EOMI, Normal ENT Inspection, Pharynx Normal Neck: Full Range of Motion, Normal Inspection, Non Tender, Supple, Carotid Bruit Respiratory: Chest Non Tender, Lungs Clear, Normal Breath Sounds, No Accessory Muscle Use, No Respiratory Distress Cardiovascular: Regular Rate, Rhythm, No Edema, No Gallop, No JVD, No Murmur, Normal Peripheral Pulses Gastrointestinal: Normal Bowel Sounds, No Organomegaly, No Pulsatile Mass, Non Tender, Soft Back: Normal Inspection, No CVA Tenderness, No Vertebral Tenderness Extremity: Normal Capillary Refill, Normal Inspection, Normal Range of Motion, Non Tender, No Calf Tenderness, No Pedal Edema Neurologic/Psychiatric: Alert, No Motor/Sensory Deficits, food broker II-XII Norm as Tested, Abnormal Gait, Depressed Affect, Disoriented, Facial Droop, Motor Weakness (2/5 lower extremities, 3/5 upper) Skin: Normal Color, Warm/Dry Lymphatic: No Adenopathy Results/Procedures Lab Patient resulted labs reviewed. FIM Transfers Therapy Code Descriptions/Definitions Functional [place] Measure: 0=Not Assessed/NA 4=Minimal Assistance 1=Total Assistance 5=Supervision or Setup 2=Maximal Assistance 6=Modified [place] 3=Moderate Assistance 7=Complete IndependenceSCALE: Activities may be completed with or without assistive devices. 7-Thguhdnzmg-wcjoqqc completes the activity by him/herself with no assistance from a helper. 5-Set-up or Clean-up Assistance-helper sets up or cleans up; patient completes activity. [place] assists only prior to or following the activity. 4-Supervision or Touching Assistance-helper provides verbal cues and/or touching/steadying and/or contact guard assistance as patient completes activity. Assistance may be provided throughout the activity or intermittently. 3-Partial/Moderate Assistance-helper does LESS THAN HALF the effort. [place] lifts, holds or supports trunk or limbs, but provides less than half the effort. 2-Substantial/Maximal Assistance-helper does MORE THAN HALF the effort. [place] lifts or holds trunk or limbs and provides more than half the effort. 3-Kxhzefbwr-xunumo does ALL the effort. Patient does none of the effort to complete the activity. Or, the assistance of 2 or more helpers is required for the patient to complete the activity. If activity was not attempted, code reason: 7-Patient Refused. 9-Not Applicable-not attempted and the patient did not perform the activity before the current illness, exacerbation or injury. 10-Not Attempted due to Environmental Limitations-(lack of equipment, weather restraints, etc.). 88-Not Attempted due to Medical Conditions or Safety Concerns. Roll Left to Right (QC): 6 Sit to Lying (QC): 4 Sit to Stand (QC): 5 Chair/Gdw-wl-Aonjn Xfer(QC): 4 Car Transfer (QC): 4 Gait Training Does the Patient Walk?: Yes Distance: 500' Walk 10 feet (QC): 5 Walk 50 ft with 2 Turns(QC): 4 Walk 150 ft (QC): 4 Walking 10ft/uneven surface-QC: 4 Gait Persons Needed: 1 Gait Assistive Device: FWW Wheelchair Training Does the Pt Use a Wheelchair?: No Wheel 50 ft with 2 turns (QC): 9 Wheel 150 ft (QC): 9 Type of Wheelchair: N/A Stair Training 1 Step (curb) (QC): 7 4 Steps (QC): 7 12 Steps (QC): 7 Balance Picking up an Object (QC): 7 ADL-Treatment Eating (QC): 5 Oral Hygiene (QC): 3 (Min A for standing balance and v/c's for sequencing ) Bathing Location: L Arm, R Arm, Perineal Area Shower/Bathe Self (QC): 3 (Min A for standing balance when bathing periarea/buttocks) Upper Body Dressing (QC): 5 Lower Body Dressing (QC): 3 (Min A overall. Pt required assistance to thread BLE through brief and v/c's for sequencing with pants) On/Off Footwear (QC): 5 Toileting Hygiene (QC): 3 (Min A for standing balance when wiping periarea/buttocks and hiking pants) Assessment/Plan Assessment and Plan Assess & Plan/Chief Complaint Assessment: s/p craniotomy 05/15/22 due to melanoma with mets HTN HLP Seizure risk Confusion Generalized weakness Incontinence Plan: PT OT Home meds Fall risk 05/23/2022: Monitor pain Fall risk 05/24/2022: Monitor pain Steroids 05/25/2022: Continue current treatment Steroid taper per neurosurgery 05/26/2022: Monitor for falls Monitor for pain 05/27/2022: Monitor incontinence 05/28/2022: Monitor closely Fall risk (1) S/P brain surgery ANSLEY ALSTON DO May 28, 2022 05:57
[2022-05-28 07:21] VITALS: BP 101/63
[2022-05-28] MEDS: FAMOTIDINE 20 MG (PEPCID) TABLET PO SCH ×2 (08:20→20:06)
[2022-05-28] MEDS: FENOFIBRATE 134 MG (LOFIBRA) CAPSULE PO SCH (08:20)
[2022-05-28] MEDS: DOCUSATE SODIUM 100 MG (COLACE) CAP PO SCH ×2 (08:22→19:44)
[2022-05-28] MEDS: polyethylene glycoL POWDER 17 GM (MIRALAX) PACK PO SCH ×2 (08:22→19:18)
[2022-05-28] MEDS: SENNA W/DOCUSATE (SENOKOT S) TABLET PO SCH ×2 (08:22→19:44)
--- NOTE | 2022-05-28 09:06 | Speech Therapy Daily Note ---
Speech Daily Progress Note Subjective Date Seen by Provider: May 28, 2022 Time Seen by Provider: 08:30 The patient was seated upright in his recliner, awake and alert upon entrance to his room by the clinician. The patient greeted the clinician appropriately and was agreeable to participation in the cognitive linguistic treatment session. Objective The patient appears confused, frequently requiring verbal redirection to task or repetition of questions and instructions. The patient was asked about his hearing ability. Initially, the patient stated he was able to hear, "fine." Throughout the session, the patient's baseline and current memory function were addressed. At this point, the patient began discussing hearing aids stating, "I don't think I want hearing aids, they seem like too much." The clinician attempted to clarify if the patient felt his memory errors were due to the inability to hear the clinician versus a necessity for hearing aids. The patient continued to confirm it was "all memory." The patient was oriented to date, month, year, place, and city. The patient was not oriented to day of the week. The clinician attempted recall of five single words. With multiple repetitions, the patient was unable to recall five single words immediately, recalling four. Following a five minute delay, the patient was confused of the clinician's request and was unable to recall any. With category cues, the patient was able to recall one of five. As the clinician went to exit the room, the patient stated, "velvet." Velvet was a word the clinician asked the patient to recall. Therefore, the patient recalled two of five following a delay. The clinician suspects baseline cognitive deficits, therefore, cognitive progress through skilled therapy at this time is not suspected. Assessment Assessment Current Status: Poor Progress Treatment Plan Continue Plan of Care Speech Short Term Goals Short Term Goals Short Term Goals The patient will display 80% accuracy with memory and functional problem solving exercises, given minimal verbal/visual cues. Speech Nursing Home Goals Nursing Home Goals The patient will display improved cognitive linguistic function for safe discharge to the least restrictive environment Speech-Plan Treatment Plan Speech Therapy Treatment Plan: Continue Plan of Care Treatment Duration: Jun 08, 2022 Frequency: 5 times per week Estimated Hrs Per Day: .5 hour per day Rehab Potential: Fair Safety Risks/Education Teaching Recipient: Patient Teaching Methods: Demonstration, Discussion Response to Teaching: Unable to Comprehend Education Topics Provided: Internal Memory Strategies Time Speech Therapy Time In: 08:30 Speech Therapy Time Out: 09:00 Total Billed Time: 30 Billed Treatment Time 1, TAMARA Rudd May 28, 2022 09:06
--- NOTE | 2022-05-28 10:15 | Occupational Ther Daily Note ---
OT Current Status-Daily Note Subjective Pt seated in recliner upon OT arrival, agreeable to tx. Mental Status/Objective Patient Orientation: Person, Confused, Mumbles ADL-Treatment Therapy Code Descriptions/Definitions Functional [place] Measure: 0=Not Assessed/NA 4=Minimal Assistance 1=Total Assistance 5=Supervision or Setup 2=Maximal Assistance 6=Modified [place] 3=Moderate Assistance 7=Complete IndependenceSCALE: Activities may be completed with or without assistive devices. 7-Zeepuewoxi-jmobdgp completes the activity by him/herself with no assistance from a helper. 5-Set-up or Clean-up Assistance-helper sets up or cleans up; patient completes activity. [place] assists only prior to or following the activity. 4-Supervision or Touching Assistance-helper provides verbal cues and/or touching/steadying and/or contact guard assistance as patient completes activity. Assistance may be provided throughout the activity or intermittently. 3-Partial/Moderate Assistance-helper does LESS THAN HALF the effort. [place] lifts, holds or supports trunk or limbs, but provides less than half the effort. 2-Substantial/Maximal Assistance-helper does MORE THAN HALF the effort. [place] lifts or holds trunk or limbs and provides more than half the effort. 6-Tmaxzplyv-mcqzyc does ALL the effort. Patient does none of the effort to complete the activity. Or, the assistance of 2 or more helpers is required for the patient to complete the activity. If activity was not attempted, code reason: 7-Patient Refused. 9-Not Applicable-not attempted and the patient did not perform the activity be fore the current illness, exacerbation or injury. 10-Not Attempted due to Environmental Limitations-(lack of equipment, weather restraints, etc.). 88-Not Attempted due to Medical Conditions or Safety Concerns. Oral Hygiene (QC): 4 (Standing balance at sink) Shower/Bathe Self (QC): 4 (SBA for standing balance when cleaning periarea/buttocks) Upper Body Dressing (QC): 4 (V/c's to fully don shirt) Lower Body Dressing (QC): 3 (Min A overall. Pt required v/c's for sequencing and threading RLE into brief) On/Off Footwear: 5 Other Treatment [facility], and used FWW to walk to bathroom to complete showering, dressing, and stood at sink for oral care/grooming tasks. Pt required v/c's for sequencing when doffing clothes prior to shower, and he needed verbal and visual cues when threading BLEs into brief after shower. He completed dressing while seated in a chair without armrests to appropriately challenge his dynamic sitting balance. Pt used to FWW to walk to therapy gym, CGA, requiring verbal and tactile cues to keep FWW close to him, unable to comprehend/demonstrate directions. He completed 10min standing at the arm bike (15 hobsb resistance), no RBs. He completed 10 reps of the following exercises with 3lb weight dowel azael to increase BUE strength needed for functional transfers: overhead presses, chest presses, and bicep curls. Task appeared to be challenging for pt, so clinician had to prompt pt to take RB d/t poor body awareness. He participated in standing functional activities designed to inc rease standing activity tolerance and fine motor coordination. He stood at table top and sorted 52 cards by suite, in all planes, deck split between RUE and LUE. He required assistance to grasp card with RUE d/t pre-existing grasp and coordination deficits, but he was able to place card in appropriate stack once placed in R hand. PT joined therapy tx d/t skill of 2 clinicians required which a rehab nurse could not perform in order to focus on higher level balance tasks, coordinate UE/LEs, decrease fall risk, and due to pt's limitations in strength, coordination, activity tolerance, balance, mobility/transfers. Pt's dynamic standing balance and coordination challenged by standing and catching blue ball with BUE x20 then kicking ball x10. PT provided CGA to min A for balance. Post tx, pt left with PT. Education OT Patient Education: Correct positioning, Energy conservation, Exercise program, Modified ADL techniques, Progress toward Goal/Update tx plan, Purpose of tx/functional activities, Rehab process, Safety issues, Transfer techniques Teaching Recipient: Patient Teaching Methods: Demonstration, Discussion Response to Teaching: Verbalize Understanding, Unable to Return Demonstration, Return Demonstration, Reinforcement Needed OT Short Term Goals Short Term Goals Time Frame: Jun 05, 2022 Oral hygiene: 5 Upper body dressin OT Textile Designer Goals Textile Designer Goals Time Frame: Jun 19, 2022 Eating (QC): 5 Oral Hygiene (QC): 6 Toileting Hygiene (QC): 6 Shower/Bathe Self (QC): 4 Upper Body Dressing (QC): 5 Lower Body Dressing (QC): 4 On/Off Footwear (QC): 4 Additional Goals: 1-Demonstrate ADL Tasks, 2-Verbalize Understanding, 3- ImproveStrength/Enrico 1=Demonstrate adherence to instructed precautions during ADL tasks. 2=Patient will verbalize/demonstrate understanding of assistive devices/modifications for ADL. 3=Patient will improve strength/tolerance for activity to enable patient to perform ADL's. OT Education/Plan Problem List/Assessment Assessment: Decreased Activ Tolerance, Decreased Safety Aware, Decreased UE Strength, Impaired Coordination, Impaired Funct Balance, Impaired I ADL's, Impaired Self-Care Skills Discharge Recommendations Plan/Recommendations: Continue POC Treatment Plan/Plan of Care Patient would benefit from OT for education, treatment and training to promote independence in ADL's, mobility, safety and/or upper extremity function for ADL's. Plan of Care: ADL Retraining, Functional Mobility, Group Exercise/Act as Ind, UE Funct Exercise/Act, UE Neuromus Re-Ed/Coord, Visual/Perceptual Retrain Treatment Duration: Jun 19, 2022 Frequency: At least 5 of 7 days/Wk (IRF) Estimated Hrs Per Day: 1.5 hours per day Agreement: Yes Rehab Potential: Fair Time/GCodes Start Time: 09:00 Stop Time: 10:15 Total Time Billed (hr/min): 75 Billed Treatment Time 9675-8646: OT tx [id number]: OT/PT cotreat 1, ADL 2 (30'), Ex (10'), FA 2 (35') [facility] OT May 28, 2022 10:15
--- NOTE | 2022-05-28 12:06 | Physical Therapy Daily Note ---
PT Daily Note-Current Subjective Upon arrival, pt was in gym with OT. PT co-treats with OT for 15min. Pt agree to PT. Mental Status Patient Orientation: Person, Confused, Place Transfers SCALE: Activities may be completed with or without assistive devices. 4-Eahimnbrom-nbwaggd completes the activity by him/herself with no assistance from a helper. 5-Set-up or Clean-up Assistance-helper sets up or cleans up; patient completes activity. [place] assists only prior to or following the activity. 4-Supervision or Touching Assistance-helper provides verbal cues and/or touching/steadying and/or contact guard assistance as patient completes activity. Assistance may be provided throughout the activity or intermittently. 3-Partial/Moderate Assistance-helper does LESS THAN HALF the effort. [place] lifts, holds or supports trunk or limbs, but provides less than half the effort. 2-Substantial/Maximal Assistance-helper does MORE THAN HALF the effort. [place] lifts or holds trunk or limbs and provides more than half the effort. 9-Fojpyfmjk-ppxaxu does ALL the effort. Patient does none of the effort to complete the activity. Or, the assistance of 2 or more helpers is required for the patient to complete the activity. If activity was not attempted, code reason: 7-Patient Refused. 9-Not Applicable-not attempted and the patient did not perform the activity before the current illness, exacerbation or injury. 10-Not Attempted due to Environmental Limitations-(lack of equipment, weather restraints, etc.). 88-Not Attempted due to Medical Conditions or Safety Concerns. Sit to Stand (QC): 3 Pt transferred from chair to standing. Pt required partial assistance with standing. Weight Bearing Full Weight Bearing Full Weight Bearing Gait Training Does the Patient Walk?: Yes Distance: 62' Walk 10 feet (QC): 3 Walk 50 ft with 2 Turns(QC): 3 Gait Persons Needed: 1 Gait Assistive Device: FWW Pt amb. from gym to room, pt has some difficulty walking in to walker. Pt has distance between him and walker, and needs VC/TC to stay close to FWW. Wheelchair Training Does the Pt Use a Wheelchair?: No Exercises Supine Ex: Ankle pumps, Heel Slides, Straight leg raise, Hip abd/add Supine Reps: 10 Treatments Pt performed and completed all Exs listed above. PT co-treated with OT to work on standing balance. Pt amb. from gym to room, for a BR break. Once PT was concluded, Pt was seated in recliner with call light and tray in reach and all needs met Assessment Current Status: Good Progress Pt required VC/TC with ambulating with a FWW. Pt has some difficulty following instructions. Pt would benefit from continued PT to improve on GT, strength, and activity tolerance. PT Short Term Goals Short Term Goals Time Frame: May 29, 2022 Roll Left & Right: 6 Sit to lyin Lying to sitting on side of be: 4 Sit to stand: 4 Chair/jcw-hz-bpdtg transfer: 4 Walk 10 feet: 4 Walk 50 feet with two turns: 4 Walk 150 feet: 4 PT Long-Term Goals Statistical Programmer Goals PT Long-Term Goals Time Frame: Jun 12, 2022 Roll Left & Right (QC): 6 Sit to Lying (QC): 6 Lying-Sitting on Side/Bed(QC): 6 Sit to Stand (QC): 6 Chair/Iox-bz-Rjxec Xfer(QC): 5 Toilet Transfer (QC): 5 Car Transfer (QC): 5 Does the Patient Walk: Yes Walk 10 feet (QC): 5 Walk 50ft with 2 Turns (QC): 5 Walk 150 ft (QC): 5 Walking 10ft on Uneven Surface: 5 1 Step (curb) (QC): 4 4 Steps (QC): 4 12 Steps (QC): 88 Picking up an Object (QC): 4 (using airdrop systems technician) Wheel 50 feet with 2 turns (QC: 9 Wheel 150 feet: 9 PT Plan Problem List Problem List: Activity Tolerance, Functional Strength, Gait Treatment/Plan Treatment Plan: Continue Plan of Care Treatment Plan: Bed Mobility, Education, Functional Activity Enrico, Functional Strength, Group Therapy, Gait, Safety, Therapeutic Exercise, Transfers Treatment Duration: Jun 12, 2022 Frequency: At least 5 of 7 days/Wk (IRF) Estimated Hrs Per Day: 1.5 hours per day Patient and/or Family Agrees t: Yes Safety Risks/Education Patient Education: Transfer Techniques Teaching Recipient: Patient Teaching Methods: Discussion Response to Teaching: Verbalize Understanding Time/GCodes Time In: 1000 Time Out: 1100 Total Billed Treatment Time: 60 Total Billed Treatment 1, NM (2) 30, FA 15, Exs 15 LEA DELGADO ENGINEERING TEST SPECIALIST May 28, 2022 12:06
--- NOTE | 2022-05-28 15:17 | Physical Therapy Daily Note ---
PT Daily Note-Current Subjective Upon arrival, pt was seated in recliner. Pt agrees to PT. Mental Status Patient Orientation: Person, Confused, Place, Situation Transfers SCALE: Activities may be completed with or without assistive devices. 1-Qmocfgtqym-gzrjxbo completes the activity by him/herself with no assistance from a helper. 5-Set-up or Clean-up Assistance-helper sets up or cleans up; patient completes activity. [place] assists only prior to or following the activity. 4-Supervision or Touching Assistance-helper provides verbal cues and/or touching/steadying and/or contact guard assistance as patient completes activity. Assistance may be provided throughout the activity or intermittently. 3-Partial/Moderate Assistance-helper does LESS THAN HALF the effort. [place] lif ts, holds or supports trunk or limbs, but provides less than half the effort. 2-Substantial/Maximal Assistance-helper does MORE THAN HALF the effort. [place] lifts or holds trunk or limbs and provides more than half the effort. 1-Gxulftdfq-jpcwwp does ALL the effort. Patient does none of the effort to complete the activity. Or, the assistance of 2 or more helpers is required for the patient to complete the activity. If activity was not attempted, code reason: 7-Patient Refused. 9-Not Applicable-not attempted and the patient did not perform the activity before the current illness, exacerbation or injury. 10-Not Attempted due to Environmental Limitations-(lack of equipment, weather restraints, etc.). 88-Not Attempted due to Medical Conditions or Safety Concerns. Sit to Stand (QC): 3 Toilet Transfer (QC): 3 Pt transferred from sit to stand, Pt required VC/TC to show proper transfer technique. Weight Bearing Full Weight Bearing Full Weight Bearing Gait Training Does the Patient Walk?: Yes Distance: 355' Walk 10 feet (QC): 4 Walk 50 ft with 2 Turns(QC): 4 Walk 150 ft (QC): 4 Gait Persons Needed: 1 Gait Assistive Device: FWW Pt needed continual cueing to properly amb. with a FWW. Pt would let walker get away from him, so pt would have to stop and walk into walker to stay close to it. PT had to keep a hand on walker so pt wouldn't take it out to far. Wheelchair Training Does the Pt Use a Wheelchair?: No Treatments Pt amb. from room down mata, going around 2nd floor and back to room. Once pt reach his room, pt used BR. Once finished, PT concluded, pt sat in recliner with call light and tray in reach and all needs met. Assessment Current Status: Fair Progress Pt requires VC/TC in regards to ambulation. Pt would benefit from continued PT to improve on GT, strength, and balance PT Short Term Goals Short Term Goals Time Frame: May 29, 2022 Roll Left & Right: 6 Sit to lyin Lying to sitting on side of be: 4 Sit to stand: 4 Chair/aby-ap-lhrxo transfer: 4 Walk 10 feet: 4 Walk 50 feet with two turns: 4 Walk 150 feet: 4 PT Tea [employer] Spice Supervisor Goals Retirement Goals PT Tea And Spice Supervisor Goals Time Frame: Jun 12, 2022 Roll Left & Right (QC): 6 Sit to Lying (QC): 6 Lying-Sitting on Side/Bed(QC): 6 Sit to Stand (QC): 6 Chair/Rzm-ok-Ulyvk Xfer(QC): 5 Toilet Transfer (QC): 5 Car Transfer (QC): 5 Does the Patient Walk: Yes Walk 10 feet (QC): 5 Walk 50ft with 2 Turns (QC): 5 Walk 150 ft (QC): 5 Walking 10ft on Uneven Surface: 5 1 Step (curb) (QC): 4 4 Steps (QC): 4 12 Steps (QC): 88 Picking up an Object (QC): 4 (using chef assistant) Wheel 50 feet with 2 turns (QC: 9 Wheel 150 feet: 9 PT Plan Problem List Problem List: Functional Strength, Balance, Gait Treatment/Plan Treatment Plan: Continue Plan of Care Treatment Plan: Bed Mobility, Education, Functional Activity Enrico, Functional Strength, Group Therapy, Gait, Safety, Therapeutic Exercise, Transfers Treatment Duration: Jun 12, 2022 Frequency: At least 5 of 7 days/Wk (IRF) Estimated Hrs Per Day: 1.5 hours per day Patient and/or Family Agrees t: Yes Safety Risks/Education Patient Education: Gait Training, Transfer Techniques Teaching Recipient: Patient Teaching Methods: Discussion Response to Teaching: Verbalize Understanding Time/GCodes Time In: 1345 Time Out: 1420 Total Billed Treatment Time: 35 Total Billed Treatment 1, GT 25, FA 10 LEA DELGADO SUPERVISOR WOOL SHEARING May 28, 2022 15:17
[2022-05-28] MEDS: MICONAZOLE 2% POWDER (DESENEX AF) 90 GM TOP SCH ×2 (18:17→20:06)
[2022-05-28 19:58] VITALS: BP 100/62
--- NOTE | 2022-05-29 06:24 | PM&R Progress Note ---
Subjective HPI/CC On Admission Date Seen by Provider: May 29, 2022 Time Seen by Provider: 12:30 Subjective/Events-last exam 05/29/2022: Pt is having incontinence at night Discontinue the earnest today Family was visiting today 05/28/2022: Patient seems to be ambulating well No falls ADL's are improving 05/27/2022: Pt is doing very well Chronic bp is 90 Incontinent at night Bowels are moving 05/26/2022: No major issues BM+ No falls Participating with PT OT 05/25/2022: Patient doing well No concerns With heavy cues to keep on task 05/24/2022: Patient doing well Took a shower today No pain reported 05/23/2022: Doing well Brother at bedside Asked about pathology and I don't have access to that No pain reported Confusion noted WBC elevated from steroids Review of Systems General: Fatigue, Malaise Objective Exam Vital Signs Vital Signs Date Time Temp Pulse Resp B/P (MAP) Pulse Ox O2 Delivery O2 Flow Rate FiO2 05/29/22 20:06 36.5 88 20 111/61 (78) 95 Room Air Capillary Refill : General Appearance: No Apparent Distress, WD/WN, Chronically ill, Thin HEENT: PERRL/EOMI, Normal ENT Inspection, Pharynx Normal Neck: Full Range of Motion, Normal Inspection, Non Tender, Supple, Carotid Bruit Respiratory: Chest Non Tender, Lungs Clear, Normal Breath Sounds, No Accessory Muscle Use, No Respiratory Distress Cardiovascular: Regular Rate, Rhythm, No Edema, No Gallop, No JVD, No Murmur, Normal Peripheral Pulses Gastrointestinal: Normal Bowel Sounds, No Organomegaly, No Pulsatile Mass, Non Tender, Soft Back: Normal Inspection, No CVA Tenderness, No Vertebral Tenderness Extremity: Normal Capillary Refill, Normal Inspection, Normal Range of Motion, Non Tender, No Calf Tenderness, No Pedal Edema Neurologic/Psychiatric: Alert, No Motor/Sensory Deficits, kiln drawer II-XII Norm as Tested, Abnormal Gait, Depressed Affect, Disoriented, Facial Droop, Motor Weakness (2/5 lower extremities, 3/5 upper) Skin: Normal Color, Warm/Dry Lymphatic: No Adenopathy Results/Procedures Lab Patient resulted labs reviewed. FIM Transfers Therapy Code Descriptions/Definitions Functional [place] Measure: 0=Not Assessed/NA 4=Minimal Assistance 1=Total Assistance 5=Supervision or Setup 2=Maximal Assistance 6=Modified [place] 3=Moderate Assistance 7=Complete IndependenceSCALE: Activities may be completed with or without assistive devices. 6-Fblnuczcwm-iajqmto completes the activity by him/herself with no assistance from a helper. 5-Set-up or Clean-up Assistance-helper sets up or cleans up; patient completes activity. [place] assists only prior to or following the activity. 4-Supervision or Touching Assistance-helper provides verbal cues and/or touching/steadying and/or contact guard assistance as patient completes activity. Assistance may be provided throughout the activity or intermittently. 3-Partial/Moderate Assistance-helper does LESS THAN HALF the effort. [place] lifts, holds or supports trunk or limbs, but provides less than half the effort. 2-Substantial/Maximal Assistance-helper does MORE THAN HALF the effort. [place] lifts or holds trunk or limbs and provides more than half the effort. 5-Gyixcqkmt-jzxhwl does ALL the effort. Patient does none of the effort to complete the activity. Or, the assistance of 2 or more helpers is required for the patient to complete the activity. If activity was not attempted, code reason: 7-Patient Refused. 9-Not Applicable-not attempted and the patient did not perform the activity before the current illness, exacerbation or injury. 10-Not Attempted due to Environmental Limitations-(lack of equipment, weather restraints, etc.). 88-Not Attempted due to Medical Conditions or Safety Concerns. Roll Left to Right (QC): 6 Sit to Lying (QC): 4 Sit to Stand (QC): 3 Chair/Mya-uh-Hzeec Xfer(QC): 4 Car Transfer (QC): 4 Gait Training Does the Patient Walk?: Yes Distance: 355' Walk 10 feet (QC): 4 Walk 50 ft with 2 Turns(QC): 4 Walk 150 ft (QC): 4 Walking 10ft/uneven surface-QC: 4 Gait Persons Needed: 1 Gait Assistive Device: FWW Wheelchair Training Does the Pt Use a Wheelchair?: No Wheel 50 ft with 2 turns (QC): 9 Wheel 150 ft (QC): 9 Type of Wheelchair: N/A Stair Training 1 Step (curb) (QC): 7 4 Steps (QC): 7 12 Steps (QC): 7 Balance Picking up an Object (QC): 7 ADL-Treatment Eating (QC): 5 Oral Hygiene (QC): 4 (Standing balance at sink) Bathing Location: L Arm, R Arm, Perineal Area Shower/Bathe Self (QC): 4 (SBA for standing balance when cleaning peria jose alberto/buttocks) Upper Body Dressing (QC): 4 (V/c's to fully don shirt) Lower Body Dressing (QC): 3 (Min A overall. Pt required v/c's for sequencing and threading RLE into brief) On/Off Footwear (QC): 5 Toileting Hygiene (QC): 3 (Min A for standing balance when wiping periarea/buttocks and hiking pants) Assessment/Plan Assessment and Plan Assess & Plan/Chief Complaint Assessment: s/p craniotomy 05/15/22 due to melanoma with mets HTN HLP Seizure risk Confusion Generalized weakness Incontinence Plan: PT OT Home meds Fall risk 05/23/2022: Monitor pain Fall risk 05/24/2022: Monitor pain Steroids 05/25/2022: Continue current treatment Steroid taper per neurosurgery 05/26/2022: Monitor for falls Monitor for pain 05/27/2022: Monitor incontinence 05/28/2022: Monitor closely Fall risk 05/29/2022: Increase ambulation No pain reported (1) S/P brain surgery ANSLEY ALSTON DO May 29, 2022 06:24
[2022-05-29 08:00] VITALS: BP 107/61
[2022-05-29] MEDS: SENNA W/DOCUSATE (SENOKOT S) TABLET PO SCH ×2 (08:21→20:01)
[2022-05-29] MEDS: FENOFIBRATE 134 MG (LOFIBRA) CAPSULE PO SCH (08:21)
[2022-05-29] MEDS: FAMOTIDINE 20 MG (PEPCID) TABLET PO SCH ×2 (08:21→21:26)
[2022-05-29] MEDS: MICONAZOLE 2% POWDER (DESENEX AF) 90 GM TOP SCH ×2 (08:22→21:27)
[2022-05-29] MEDS: DOCUSATE SODIUM 100 MG (COLACE) CAP PO SCH ×2 (08:22→20:01)
[2022-05-29] MEDS: polyethylene glycoL POWDER 17 GM (MIRALAX) PACK PO SCH ×2 (09:34→20:01)
--- NOTE | 2022-05-29 10:42 | Occupational Ther Daily Note ---
OT Current Status-Daily Note Subjective Pt agreeable to OT/PT cotreat for family education. Pt's , mom, and aunt present. Mental Status/Objective Patient Orientation: Person, Confused, Mumbles ADL-Treatment Therapy Code Descriptions/Definitions Functional [place] Measure: 0=Not Assessed/NA 4=Minimal Assistance 1=Total Assistance 5=Supervision or Setup 2=Maximal Assistance 6=Modified [place] 3=Moderate Assistance 7=Complete IndependenceSCALE: Activities may be completed with or without assistive devices. 3-Lrszycbmdu-desoixe completes the activity by him/herself with no assistance from a helper. 5-Set-up or Clean-up Assistance-helper sets up or cleans up; patient completes activity. [place] assists only prior to or following the activity. 4-Supervision or Touching Assistance-helper provides verbal cues and/or touchi ng/steadying and/or contact guard assistance as patient completes activity. Assistance may be provided throughout the activity or intermittently. 3-Partial/Moderate Assistance-helper does LESS THAN HALF the effort. [place] lifts, holds or supports trunk or limbs, but provides less than half the effort. 2-Substantial/Maximal Assistance-helper does MORE THAN HALF the effort. [place] lifts or holds trunk or limbs and provides more than half the effort. 8-Yuzdsuopg-eixlom does ALL the effort. Patient does none of the effort to complete the activity. Or, the assistance of 2 or more helpers is required for the patient to complete the activity. If activity was not attempted, code reason: 7-Patient Refused. 9-Not Applicable-not attempted and the patient did not perform the activity before the current illness, exacerbation or injury. 10-Not Attempted due to Environmental Limitations-(lack of equipment, weather restraints, etc.). 88-Not Attempted due to Medical Conditions or Safety Concerns. Oral Hygiene (QC): 4 (CGA-SBA for standing balance ) Lower Body Dressing (QC): 3 (Min A to thread RLE into brief) On/Off Footwear: 5 (gripper socks) Toileting Hygiene (QC): 3 (Min A to maneuver clothing and for standing balance during pant hike) Other Treatment OT/PT cotreat due to skill of 2 clinicians required which a rehabilitation caseworker could not perform, in order to coordinate UE/LEs, decrease fall risk, perform family education, and due to pt's limitations in strength and activity tolerance. OT focused on UE placement, ADLs, cues for sequencing and safety, PT focused on LE placement, gross overall movement, transfers/mobility. Pt's family present for family education. Family informed of cues pt requires for safety with ADLs and transfers, including reminders to use UEs to push up from the surface he is on instead of the walker, keeping the walker close by with walking, and other safety cues. Pt's family verbalizes understanding. OT informed family about level of assistance with dressing, toileting and showering tasks, including how pt has a tendency to put BLEs into same leg hole of brief, supervision with showering, and cues to manage pants prior to and after toileting. Family shown how pt transfers sit to/from stand, in/out of bed, and ambulation with FWW. Pt's shown how to don/doff gait belt, she demonstrated understanding. Pt's family verbalized understanding of education, and feel comfortable assisting pt at home, no other questions/concerns noted from family. Pt used FWW to complete toileting, perform oral care at sink, then perform fu nctional mobility to therapy gym. Pt completed reaching task, involving side stepping along parallel bars L and R, then standing at white board to scan for letters across board in order to spell his full name. Pt stood at FWW, performing catching/tossing task x10, requiring CGA-SBA for standing balance. Pt performed functional mobility with FWW through halls. Pt's was present with clinicians to practice providing verbal and tactile cues needed to keep FWW close to him. Post tx, pt returned to recliner in room, call light left within reach and all needs met. Education OT Patient Education: Correct positioning, Energy conservation, Modified ADL techniques, Progress toward Goal/Update tx plan, Purpose of tx/functional acti vities, Rehab process Teaching Recipient: Patient Teaching Methods: Discussion Response to Teaching: Verbalize Understanding, Return Demonstration, Reinforcement Needed OT Short Term Goals Short Term Goals Time Frame: Jun 05, 2022 Oral hygiene: 5 Upper body dressin OT Retirement Goals Earth Science Faculty Member Goals Time Frame: Jun 19, 2022 Eating (QC): 5 Oral Hygiene (QC): 6 Toileting Hygiene (QC): 6 Shower/Bathe Self (QC): 4 Upper Body Dressing (QC): 5 Lower Body Dressing (QC): 4 On/Off Footwear (QC): 4 Additional Goals: 1-Demonstrate ADL Tasks, 2-Verbalize Understanding, 3- ImproveStrength/Enrico 1=Demonstrate adherence to instructed precautions during ADL tasks. 2=Patient will verbalize/demonstrate understanding of assistive devices/modifications for ADL. 3=Patient will improve strength/tolerance for activity to enable patient to perform ADL's. OT Education/Plan Problem List/Assessment Assessment: Decreased Activ Tolerance, Decreased Safety Aware, Decreased UE Strength, Impaired Cognition, Impaired Coordination, Impaired Funct Balance, Impaired I ADL's, Impaired Self-Care Skills Discharge Recommendations Plan/Recommendations: Continue POC Treatment Plan/Plan of Care Patient would benefit from OT for education, treatment and training to promote independence in ADL's, mobility, safety and/or upper extremity function for ADL's. Plan of Care: ADL Retraining, Functional Mobility, Group Exercise/Act as Ind, UE Funct Exercise/Act, UE Neuromus Re-Ed/Coord, Visual/Perceptual Retrain Treatment Duration: Jun 19, 2022 Frequency: At least 5 of 7 days/Wk (IRF) Estimated Hrs Per Day: 1.5 hours per day Agreement: Yes Rehab Potential: Fair Time/GCodes Start Time: 10:00 Stop Time: 11:00 Total Time Billed (hr/min): 60 Billed Treatment Time OT/PT cotreat: 6185-6852 1, ADL (15'), FA 3 (45') CARMEN MC OT May 29, 2022 10:42
--- NOTE | 2022-05-29 12:13 | Speech Therapy Daily Note ---
Speech Daily Progress Note Subjective Date Seen by Provider: May 29, 2022 Time Seen by Provider: 08:30 The patient was seated upright in his recliner, awake and alert upon entrance to his room by the clinician. The patient greeted the clinician appropriately and was agreeable to participation in the cognitive linguistic treatment session. Objective With the aid of the white board (visual aid), the patient was oriented to self, month, day of the week, date and year. The clinician and patient discussed at-home responsibilities on this date. The p atient stated he will have "many people" who plan to help but was concerned of his bathing. At this time, the patient takes a shower each morning. Per patient, he is unsure if this practice will continue at home and inquired about disposable bath cloths. The patient and clinician worked together to research the bath cloths, the clinician taking cues from the patient (with moderate prompting from the clinician) on which website the cloths may be located. The bath cloths were located for the patient and information was read aloud. The clinician stated she would follow up with the social science teacher regarding additional locations and prices of the wipes (the social science teacher followed up with the patient regarding the wipes soon after). Assessment Assessment Current Status: Poor Progress Treatment Plan Continue Plan of Care Speech Short Term Goals Short Term Goals Short Term Goals The patient will display 80% accuracy with memory and functional problem solving exercises, given minimal verbal/visual cues. Speech Destination Sign Repairer Goals Jail Goals The patient will display improved cognitive linguistic function for safe discharge to the least restrictive environment Speech-Plan Treatment Plan Speech Therapy Treatment Plan: Continue Plan of Care Treatment Duration: Jun 08, 2022 Frequency: 5 times per week Estimated Hrs Per Day: .5 hour per day Rehab Potential: Fair Safety Risks/Education Teaching Recipient: Patient Teaching Methods: Discussion Response to Teaching: Reinforcement Needed Education Topics Provided: Home Care Needs Time Speech Therapy Time In: 08:30 Speech Therapy Time Out: 09:00 Total Billed Time: 30 Billed Treatment Time 1HALI ELIZABETH ST May 29, 2022 12:13
--- NOTE | 2022-05-29 12:51 | Physical Therapy Daily Note ---
PT Daily Note-Current Subjective Upon arrival, pt was seated in recliner with family present. PT co-treats with OT. Pt agrees to tx session. Mental Status Patient Orientation: Person, Place Transfers SCALE: Activities may be completed with or without assistive devices. 4-Csnpxigziy-xgwmipw completes the activity by him/herself with no assistance from a helper. 5-Set-up or Clean-up Assistance-helper sets up or cleans up; patient completes activity. [place] assists only prior to or following the activity. 4-Supervision or Touching Assistance-helper provides verbal cues and/or touching/steadying and/or contact guard assistance as patient completes activity. Assistance may be provided throughout the activity or intermittently. 3-Partial/Moderate Assistance-helper does LESS THAN HALF the effort. [place] lifts, holds or supports trunk or limbs, but provides less than half the effort. 2-Substantial/Maximal Assistance-helper does MORE THAN HALF the effort. [place] lifts or holds trunk or limbs and provides more than half the effort. 9-Wrqfkczwv-lqtuzm does ALL the effort. Patient does none of the effort to complete the activity. Or, the assistance of 2 or more helpers is required for the patient to complete the activity. If activity was not attempted, code reason: 7-Patient Refused. 9-Not Applicable-not attempted and the patient did not perform the activity before the current illness, exacerbation or injury. 10-Not Attempted due to Environmental Limitations-(lack of equipment, weather restraints, etc.). 88-Not Attempted due to Medical Conditions or Safety Concerns. Sit to Lying (QC): 4 Lying to Sitting/Side of Bed(Q: 4 Sit to Stand (QC): 4 Chair/Yiy-yp-Xaoxb Xfer(QC): 4 Toilet Transfer (QC): 4 Pt is CGA with sit to stand transfers and SBA with sit to lying transfers and vise versa. Pt requires VC with proper placement, when attempting to transfer. Weight Bearing Full Weight Bearing Full Weight Bearing Gait Training Does the Patient Walk?: Yes Distance: 172' Walk 10 feet (QC): 4 Walk 50 ft with 2 Turns(QC): 4 Walk 150 ft (QC): 4 Gait Persons Needed: 1 Gait Assistive Device: FWW Pt is CGA/SBA with ambulation. Pt demonstrates no LOB, but will create space between him and the FWW, pt requires VC to stay close to walker. Pt may even need to stop and walk in walker, before continuing to amb. . Wheelchair Training Does the Pt Use a Wheelchair?: No Neuromuscular Pt performed side stepping in // bar with OT having pt bring rings to the other side. Pt completed dynamic standing with spelling name out in magnets. Pt performed dynamic standing ball toss with OT. Pt required a rest break during activities. PT was focused on dynamic standing balance, in the LE. Treatments Pt performed and completed all Neuro-Roger activities. PT and OT educated family on what to expect and how to better help the pt once home. Pt then ambulated from room to gym around lobby and back to room Assessment Current Status: Fair Progress Pt would benefit from continued PT to improve on ambulation and staying close to FWW, along with activity tolerance and strength. PT Short Term Goals Short Term Goals Time Frame: May 29, 2022 Roll Left & Right: 6 Sit to lyin Lying to sitting on side of be: 4 Sit to stand: 4 Chair/blo-eg-mfuly transfer: 4 Walk 10 feet: 4 Walk 50 feet with two turns: 4 Walk 150 feet: 4 PT Snf Goals Snf Goals PT Dog And Cat Food Cook Goals Time Frame: Jun 12, 2022 Roll Left & Right (QC): 6 Sit to Lying (QC): 6 Lying-Sitting on Side/Bed(QC): 6 Sit to Stand (QC): 6 Chair/Ljm-fq-Asqgz Xfer(QC): 5 Toilet Transfer (QC): 5 Car Transfer (QC): 5 Does the Patient Walk: Yes Walk 10 feet (QC): 5 Walk 50ft with 2 Turns (QC): 5 Walk 150 ft (QC): 5 Walking 10ft on Uneven Surface: 5 1 Step (curb) (QC): 4 4 Steps (QC): 4 12 Steps (QC): 88 Picking up an Object (QC): 4 (using senior treasury analyst) Wheel 50 feet with 2 turns (QC: 9 Wheel 150 feet: 9 PT Plan Problem List Problem List: Activity Tolerance, Functional Strength, Gait Treatment/Plan Treatment Plan: Continue Plan of Care Treatment Plan: Bed Mobility, Education, Functional Activity Enrico, Functional Strength, Group Therapy, Gait, Safety, Therapeutic Exercise, Transfers Treatment Duration: Jun 12, 2022 Frequency: At least 5 of 7 days/Wk (IRF) Estimated Hrs Per Day: 1.5 hours per day Patient and/or Family Agrees t: Yes Safety Risks/Education Patient Education: Transfer Techniques Teaching Recipient: Patient, Family Teaching Methods: Demonstration, Discussion Response to Teaching: Verbalize Understanding, Return Demonstration Time/GCodes Time In: 1000 Time Out: 1100 Total Billed Treatment Time: 60 Total Billed Treatment 1, FA (2) 30, NM 20, GT 10 LEA DELGADO PARAFFIN MACHINE OPERATOR May 29, 2022 12:51
--- NOTE | 2022-05-29 14:38 | Therapy Group Daily Note ---
Therapy Daily Group Note Exercises LE Seated Exercise Session Ratio (pt:therapist): 8:2 Goal of Session: Home Safety Strategies, UE/LE Strengthing Goal Met for this Session: Yes Pt Benefit of Group: Contributions to Others, F/U Use of Strategies @Home, Increased Functional Safety, Increased Functional Strength, Improved Cognition, Recognition of Peers, Socialization Other/Notes Pt ambulated to therapy gym for OT/PT group. Group consisted of introductions (name, place living, fbjk-v-wqheprhr), socialization, B UE/LE exercises and educational topic of home safety. Pt actively listened to peers and introduced self appropriately. Pt was able to complete B UE/LE seated exercises without difficulty. Pt verbalized understanding of educational topic and gave personal strategies used in home environment. After session, pt in bed with call light/phone in reach. All needs met in room. Start Time: 13:00 Stop Time: 14:10 Total Billed Treatment Time: 70 Total Billed Treatment 1-GRP CRISTINO MARKHAM May 29, 2022 14:38
[2022-05-29 20:06] VITALS: BP 111/61
--- NOTE | 2022-05-30 07:15 | PM&R Progress Note ---
Subjective HPI/CC On Admission Date Seen by Provider: May 30, 2022 Time Seen by Provider: 12:00 Subjective/Events-last exam 05/30/2022: Doing well No issues Sleeping currently 05/29/2022: Pt is having incontinence at night Discontinue the earnest today Family was visiting today 05/28/2022: Patient seems to be ambulating well No falls ADL's are improving 05/27/2022: Pt is doing very well Chronic bp is 90 Incontinent at night Bowels are moving 05/26/2022: No major issues BM+ No falls Participating with PT OT 05/25/2022: Patient doing well No concerns With heavy cues to keep on task 05/24/2022: Patient doing well Took a shower today No pain reported 05/23/2022: Doing well Brother at bedside Asked about pathology and I don't have access to that No pain reported Confusion noted WBC elevated from steroids Review of Systems General: Fatigue, Malaise Objective Exam Vital Signs Vital Signs Date Time Temp Pulse Resp B/P (MAP) Pulse Ox O2 Delivery O2 Flow Rate FiO2 05/30/22 09:56 Room Air 05/30/22 07:30 36.5 85 18 98/55 (69) 99 Capillary Refill : General Appearance: No Apparent Distress, WD/WN, Chronically ill, Thin HEENT: PERRL/EOMI, Normal ENT Inspection, Pharynx Normal Neck: Full Range of Motion, Normal Inspection, Non Tender, Supple, Carotid Bruit Respiratory: Chest Non Tender, Lungs Clear, Normal Breath Sounds, No Accessory Muscle Use, No Respiratory Distress Cardiovascular: Regular Rate, Rhythm, No Edema, No Gallop, No JVD, No Murmur, Normal Peripheral Pulses Gastrointestinal: Normal Bowel Sounds, No Organomegaly, No Pulsatile Mass, Non Tender, Soft Back: Normal Inspection, No CVA Tenderness, No Vertebral Tenderness Extremity: Normal Capillary Refill, Normal Inspection, Normal Range of Motion, Non Tender, No Calf Tenderness, No Pedal Edema Neurologic/Psychiatric: Alert, No Motor/Sensory Deficits, sales development associate II-XII Norm as Tested, Abnormal Gait, Depressed Affect, Disoriented, Facial Droop, Motor Weakness (2/5 lower extremities, 3/5 upper) Skin: Normal Color, Warm/Dry Lymphatic: No Adenopathy Results/Procedures Lab Patient resulted labs reviewed. FIM Transfers Therapy Code Descriptions/Definitions Functional [place] Measure: 0=Not Assessed/NA 4=Minimal Assistance 1=Total Assistance 5=Supervision or Setup 2=Maximal Assistance 6=Modified [place] 3=Moderate Assistance 7=Complete IndependenceSCALE: Activities may be completed with or without assistive devices. 4-Vtnenetbiv-rngmjtt completes the activity by him/herself with no assistance from a helper. 5-Set-up or Clean-up Assistance-helper sets up or cleans up; patient completes activity. [place] assists only prior to or following the activity. 4-Supervision or Touching Assistance-helper provides verbal cues and/or touching/steadying and/or contact guard assistance as patient completes activity. Assistance may be provided throughout the activity or intermittently. 3-Partial/Moderate Assistance-helper does LESS THAN HALF the effort. [place] lifts, holds or supports trunk or limbs, but provides less than half the effort. 2-Substantial/Maximal Assistance-helper does MORE THAN HALF the effort. [place] lifts or holds trunk or limbs and provides more than half the effort. 0-Qdgtytxxe-akznng does ALL the effort. Patient does none of the effort to complete the activity. Or, the assistance of 2 or more helpers is required for the patient to complete the activity. If activity was not attempted, code reason: 7-Patient Refused. 9-Not Applicable-not attempted and the patient did not perform the activity before the current illness, exacerbation or injury. 10-Not Attempted due to Environmental Limitations-(lack of equipment, weather restraints, etc.). 88-Not Attempted due to Medical Conditions or Safety Concerns. Roll Left to Right (QC): 6 Sit to Lying (QC): 4 Sit to Stand (QC): 4 Chair/Tyx-fc-Phhou Xfer(QC): 4 Car Transfer (QC): 4 Gait Training Does the Patient Walk?: Yes Distance: 172' Walk 10 feet (QC): 4 Walk 50 ft with 2 Turns(QC): 4 Walk 150 ft (QC): 4 Walking 10ft/uneven surface-QC: 4 Gait Persons Needed: 1 Gait Assistive Device: FWW Wheelchair Training Does the Pt Use a Wheelchair?: No Wheel 50 ft with 2 turns (QC): 9 Wheel 150 ft (QC): 9 Type of Wheelchair: N/A Stair Training 1 Step (curb) (QC): 7 4 Steps (QC): 7 12 Steps (QC): 7 Balance Picking up an Object (QC): 7 ADL-Treatment Eating (QC): 5 Oral Hygiene (QC): 4 (CGA-SBA for standing balance ) Bathing Location: L Arm, R Arm, Perineal Area Shower/Bathe Self (QC): 4 (SBA for standing balance when cleaning periarea/buttocks) Upper Body Dressing (QC): 4 (V/c's to fully don shirt) Lower Body Dressing (QC): 3 (Min A to thread RLE into brief) On/Off Footwear (QC): 5 (gripper socks) Toileting Hygiene (QC): 3 (Min A to maneuver clothing and for standing balance during pant hike) Assessment/Plan Assessment and Plan Assess & Plan/Chief Complaint Assessment: s/p craniotomy 05/15/22 due to melanoma with mets HTN HLP Seizure risk Confusion Generalized weakness Incontinence Plan: PT OT Home meds Fall risk 05/23/2022: Monitor pain Fall risk 05/24/2022: Monitor pain Steroids 05/25/2022: Continue current treatment Steroid taper per neurosurgery 05/26/2022: Monitor for falls Monitor for pain 05/27/2022: Monitor incontinence 05/28/2022: Monitor closely Fall risk 05/29/2022: Increase ambulation No pain reported 05/30/2022: Monitor closely (1) S/P brain surgery ANSLEY ALSTON DO May 30, 2022 07:15
[2022-05-30 07:30] VITALS: BP 98/55
[2022-05-30] MEDS: FAMOTIDINE 20 MG (PEPCID) TABLET PO SCH ×2 (08:51→20:06)
[2022-05-30] MEDS: DOCUSATE SODIUM 100 MG (COLACE) CAP PO SCH ×2 (08:51→20:06)
[2022-05-30] MEDS: MICONAZOLE 2% POWDER (DESENEX AF) 90 GM TOP SCH ×2 (08:51→20:07)
[2022-05-30] MEDS: SENNA W/DOCUSATE (SENOKOT S) TABLET PO SCH ×2 (08:51→20:06)
[2022-05-30] MEDS: FENOFIBRATE 134 MG (LOFIBRA) CAPSULE PO SCH (08:51)
[2022-05-30] MEDS: polyethylene glycoL POWDER 17 GM (MIRALAX) PACK PO SCH ×2 (09:08→20:06)
--- NOTE | 2022-05-30 11:21 | Physical Therapy Daily Note ---
PT Daily Note-Current Subjective Upon arrival, pt was supine in bed. Pt states that he woke up early this morning. Pt agrees to PT. Mental Status Patient Orientation: Person, Place, Situation, Mumbles Transfers SCALE: Activities may be completed with or without assistive devices. 0-Uysuhquuxj-lizriox completes the activity by him/herself with no assistance from a helper. 5-Set-up or Clean-up Assistance-helper sets up or cleans up; patient completes activity. [place] assists only prior to or following the activity. 4-Supervision or Touching Assistance-helper provides verbal cues and/or touching/steadying and/or contact guard assistance as patient completes activity. Assistance may be provided throughout the activity or intermittently. 3-Partial/Moderate Assistance-helper does LESS THAN HALF the effort. [place] lifts, holds or supports trunk or limbs, but provides less than half the effort. 2-Substantial/Maximal Assistance-helper does MORE THAN HALF the effort. [place] lifts or holds trunk or limbs and provides more than half the effort. 6-Jxaynvbra-evmyso does ALL the effort. Patient does none of the effort to complete the activity. Or, the assistance of 2 or more helpers is required for the patient to complete the activity. If activity was not attempted, code reason: 7-Patient Refused. 9-Not Applicable-not attempted and the patient did not perform the activity before the current illness, exacerbation or injury. 10-Not Attempted due to Environmental Limitations-(lack of equipment, weather restraints, etc.). 88-Not Attempted due to Medical Conditions or Safety Concerns. Sit to Lying (QC): 4 Lying to Sitting/Side of Bed(Q: 4 Sit to Stand (QC): 4 Weight Bearing Full Weight Bearing Full Weight Bearing Gait Training Does the Patient Walk?: Yes Distance: 200' Walk 10 feet (QC): 4 Walk 50 ft with 2 Turns(QC): 4 Walk 150 ft (QC): 4 Gait Persons Needed: 1 Gait Assistive Device: FWW Pt was CGA with ambulation, due to becoming tired as the walk progressed. Pt had a slow, reciprical GT pattern, but as he became fatigued pt began scooting his feet on floor. Pt required a rest break during and after amb. Wheelchair Training Does the Pt Use a Wheelchair?: No Treatments Pt amb. from room around station and down east hallway and back to room. Pt requested to amb, instead of exs. Once PT was concluded, pt was supine in bed, with call light and tray in reach and all needs met. Assessment Current Status: Good Progress Pt would benefit from continued PT to improve on GT and activity tolerance. PT Short Term Goals Short Term Goals Time Frame: May 29, 2022 Roll Left & Right: 6 Sit to lyin Lying to sitting on side of be: 4 Sit to stand: 4 Chair/qyo-pq-wumie transfer: 4 Walk 10 feet: 4 Walk 50 feet with two turns: 4 Walk 150 feet: 4 PT Grid Molder Goals Grid Molder Goals PT Grid Molder Goals Time Frame: Jun 12, 2022 Roll Left & Right (QC): 6 Sit to Lying (QC): 6 Lying-Sitting on Side/Bed(QC): 6 Sit to Stand (QC): 6 Chair/Yfu-rj-Racfc Xfer(QC): 5 Toilet Transfer (QC): 5 Car Transfer (QC): 5 Does the Patient Walk: Yes Walk 10 feet (QC): 5 Walk 50ft with 2 Turns (QC): 5 Walk 150 ft (QC): 5 Walking 10ft on Uneven Surface: 5 1 Step (curb) (QC): 4 4 Steps (QC): 4 12 Steps (QC): 88 Picking up an Object (QC): 4 (using tree topper) Wheel 50 feet with 2 turns (QC: 9 Wheel 150 feet: 9 PT Plan Problem List Problem List: Activity Tolerance, Gait Treatment/Plan Treatment Plan: Continue Plan of Care Treatment Plan: Bed Mobility, Education, Functional Activity Enrico, Functional Strength, Group Therapy, Gait, Safety, Therapeutic Exercise, Transfers Treatment Duration: Jun 12, 2022 Frequency: At least 5 of 7 days/Wk (IRF) Estimated Hrs Per Day: 1.5 hours per day Patient and/or Family Agrees t: Yes Safety Risks/Education Patient Education: Gait Training, Transfer Techniques Teaching Recipient: Patient Teaching Methods: Discussion Response to Teaching: Verbalize Understanding Time/GCodes Time In: 0945 Time Out: 0959 Total Billed Treatment Time: 17 Total Billed Treatment 1, Exs 17 LEA DELGADO PTA May 30, 2022 11:21
[2022-05-30 20:00] VITALS: BP 98/59
--- NOTE | 2022-05-31 07:13 | PM&R Progress Note ---
Subjective HPI/CC On Admission Date Seen by Provider: May 31, 2022 Time Seen by Provider: 12:00 Subjective/Events-last exam 05/31/2022: Doing well No major concerns Wants to go home soon Labs due tomorrow 05/30/2022: Doing well No issues Sleeping currently 05/29/2022: Pt is having incontinence at night Discontinue the earnest today Family was visiting today 05/28/2022: Patient seems to be ambulating well No falls ADL's are improving 05/27/2022: Pt is doing very well Chronic bp is 90 Incontinent at night Bowels are moving 05/26/2022: No major issues BM+ No falls Participating with PT OT 05/25/2022: Patient doing well No concerns With heavy cues to keep on task 05/24/2022: Patient doing well Took a shower today No pain reported 05/23/2022: Doing well Brother at bedside Asked about pathology and I don't have access to that No pain reported Confusion noted WBC elevated from steroids Review of Systems General: Fatigue, Malaise Objective Exam Vital Signs Vital Signs Date Time Temp Pulse Resp B/P (MAP) Pulse Ox O2 Delivery O2 Flow Rate FiO2 05/31/22 20:46 Room Air 05/31/22 19:51 36.5 89 20 116/49 (71) 99 Capillary Refill : General Appearance: No Apparent Distress, WD/WN, Chronically ill, Thin HEENT: PERRL/EOMI, Normal ENT Inspection, Pharynx Normal Neck: Full Range of Motion, Normal Inspection, Non Tender, Supple, Carotid Bruit Respiratory: Chest Non Tender, Lungs Clear, Normal Breath Sounds, No Accessory Muscle Use, No Respiratory Distress Cardiovascular: Regular Rate, Rhythm, No Edema, No Gallop, No JVD, No Murmur, Normal Peripheral Pulses Gastrointestinal: Normal Bowel Sounds, No Organomegaly, No Pulsatile Mass, Non Tender, Soft Back: Normal Inspection, No CVA Tenderness, No Vertebral Tenderness Extremity: Normal Capillary Refill, Normal Inspection, Normal Range of Motion, Non Tender, No Calf Tenderness, No Pedal Edema Neurologic/Psychiatric: Alert, No Motor/Sensory Deficits, partition assembler II-XII Norm as Tested, Abnormal Gait, Depressed Affect, Disoriented, Facial Droop, Motor Weakness (2/5 lower extremities, 3/5 upper) Skin: Normal Color, Warm/Dry Lymphatic: No Adenopathy Results/Procedures Lab Patient resulted labs reviewed. FIM Transfers Therapy Code Descriptions/Definitions Functional [place] Measure: 0=Not Assessed/NA 4=Minimal Assistance 1=Total Assistance 5=Supervision or Setup 2=Maximal Assistance 6=Modified [place] 3=Moderate Assistance 7=Complete IndependenceSCALE: Activities may be completed with or without assistive devices. 3-Jquoxgdvgx-evxeitz completes the activity by him/herself with no assistance from a helper. 5-Set-up or Clean-up Assistance-helper sets up or cleans up; patient completes activity. [place] assists only prior to or following the activity. 4-Supervision or Touching Assistance-helper provides verbal cues and/or touching/steadying and/or contact guard assistance as patient completes activity. Assistance may be provided throughout the activity or intermittently. 3-Partial/Moderate Assistance-helper does LESS THAN HALF the effort. [place] lifts, holds or supports trunk or limbs, but provides less than half the effort. 2-Substantial/Maximal Assistance-helper does MORE THAN HALF the effort. [place] lifts or holds trunk or limbs and provides more than half the effort. 4-Enkpjrarw-dygmli does ALL the effort. Patient does none of the effort to complete the activity. Or, the assistance of 2 or more helpers is required for the patient to complete the activity. If activity was not attempted, code reason: 7-Patient Refused. 9-Not Applicable-not attempted and the patient did not perform the activity before the current illness, exacerbation or injury. 10-Not Attempted due to Environmental Limitations-(lack of equipment, weather restraints, etc.). 88-Not Attempted due to Medical Conditions or Safety Concerns. Roll Left to Right (QC): 6 Sit to Lying (QC): 4 Sit to Stand (QC): 4 Chair/Ftq-hi-Zcpcj Xfer(QC): 4 Car Transfer (QC): 4 Gait Training Does the Patient Walk?: Yes Distance: 200' Walk 10 feet (QC): 4 Walk 50 ft with 2 Turns(QC): 4 Walk 150 ft (QC): 4 Walking 10ft/uneven surface-QC: 4 Gait Persons Needed: 1 Gait Assistive Device: FWW Wheelchair Training Does the Pt Use a Wheelchair?: No Wheel 50 ft with 2 turns (QC): 9 Wheel 150 ft (QC): 9 Type of Wheelchair: N/A Stair Training 1 Step (curb) (QC): 7 4 Steps (QC): 7 12 Steps (QC): 7 Balance Picking up an Object (QC): 7 ADL-Treatment Eating (QC): 5 Oral Hygiene (QC): 4 (CGA-SBA for standing balance ) Bathing Location: L Arm, R Arm, Perineal Area Shower/Bathe Self (QC): 4 (SBA for standing balance when cleaning periarea/buttocks) Upper Body Dressing (QC): 4 (V/c's to fully don shirt) Lower Body Dressing (QC): 3 (Min A to thread RLE into brief) On/Off Footwear (QC): 5 (gripper socks) Toileting Hygiene (QC): 3 (Min A to maneuver clothing and for standing balance during pant hike) Assessment/Plan Assessment and Plan Assess & Plan/Chief Complaint Assessment: s/p craniotomy 05/15/22 due to melanoma with mets HTN HLP Seizure risk Confusion Generalized weakness Incontinence Plan: PT OT Home meds Fall risk 05/23/2022: Monitor pain Fall risk 05/24/2022: Monitor pain Steroids 05/25/2022: Continue current treatment Steroid taper per neurosurgery 05/26/2022: Monitor for falls Monitor for pain 05/27/2022: Monitor incontinence 05/28/2022: Monitor closely Fall risk 05/29/2022: Increase ambulation No pain reported 05/30/2022: Monitor closely 05/31/2022: Monitor closely (1) S/P brain surgery ANSLEY ALSTON DO May 31, 2022 07:13
[2022-05-31 07:30] VITALS: BP 112/68
[2022-05-31] MEDS: DOCUSATE SODIUM 100 MG (COLACE) CAP PO SCH ×2 (08:48→20:38)
[2022-05-31] MEDS: FENOFIBRATE 134 MG (LOFIBRA) CAPSULE PO SCH (08:48)
[2022-05-31] MEDS: FAMOTIDINE 20 MG (PEPCID) TABLET PO SCH ×2 (08:48→20:37)
[2022-05-31] MEDS: MICONAZOLE 2% POWDER (DESENEX AF) 90 GM TOP SCH ×2 (08:48→20:42)
[2022-05-31] MEDS: SENNA W/DOCUSATE (SENOKOT S) TABLET PO SCH ×2 (09:03→20:38)
[2022-05-31] MEDS: polyethylene glycoL POWDER 17 GM (MIRALAX) PACK PO SCH ×2 (09:03→19:41)
[2022-05-31 19:51] VITALS: BP 116/49
--- NOTE | 2022-06-01 06:04 | PM&R Progress Note ---
Subjective HPI/CC On Admission Date Seen by Provider: Jun 01, 2022 Time Seen by Provider: 09:00 Subjective/Events-last exam 06/01/2022: Pt is doing well Incontinence at night White count is 11.7 Sodium level is 133 Increasing ambulation 05/31/2022: Doing well No major concerns Wants to go home soon Labs due tomorrow 05/30/2022: Doing well No issues Sleeping currently 05/29/2022: Pt is having incontinence at night Discontinue the earnest today Family was visiting today 05/28/2022: Patient seems to be ambulating well No falls ADL's are improving 05/27/2022: Pt is doing very well Chronic bp is 90 Incontinent at night Bowels are moving 05/26/2022: No major issues BM+ No falls Participating with PT OT 05/25/2022: Patient doing well No concerns With heavy cues to keep on task 05/24/2022: Patient doing well Took a shower today No pain reported 05/23/2022: Doing well Brother at bedside Asked about pathology and I don't have access to that No pain reported Confusion noted WBC elevated from steroids Review of Systems General: Fatigue, Malaise Objective Exam Vital Signs Vital Signs Date Time Temp Pulse Resp B/P (MAP) Pulse Ox O2 Delivery O2 Flow Rate FiO2 06/01/22 20:55 37.5 86 20 102/58 (73) 96 Room Air Capillary Refill : General Appearance: No Apparent Distress, WD/WN, Chronically ill, Thin HEENT: PERRL/EOMI, Normal ENT Inspection, Pharynx Normal Neck: Full Range of Motion, Normal Inspection, Non Tender, Supple, Carotid B ruit Respiratory: Chest Non Tender, Lungs Clear, Normal Breath Sounds, No Accessory Muscle Use, No Respiratory Distress Cardiovascular: Regular Rate, Rhythm, No Edema, No Gallop, No JVD, No Murmur, Normal Peripheral Pulses Gastrointestinal: Normal Bowel Sounds, No Organomegaly, No Pulsatile Mass, Non Tender, Soft Back: Normal Inspection, No CVA Tenderness, No Vertebral Tenderness Extremity: Normal Capillary Refill, Normal Inspection, Normal Range of Motion, Non Tender, No Calf Tenderness, No Pedal Edema Neurologic/Psychiatric: Alert, No Motor/Sensory Deficits, wheel filler II-XII Norm as Tested, Abnormal Gait, Depressed Affect, Disoriented, Facial Droop, Motor Weakness (2/5 lower extremities, 3/5 upper) Skin: Normal Color, Warm/Dry Lymphatic: No Adenopathy Results/Procedures Lab Laboratory Tests 06/01/22 05:54 Patient resulted labs reviewed. FIM Transfers Therapy Code Descriptions/Definitions Functional [place] Measure: 0=Not Assessed/NA 4=Minimal Assistance 1=Total Assistance 5=Supervision or Setup 2=Maximal Assistance 6=Modified [place] 3=Moderate Assistance 7=Complete IndependenceSCALE: Activities may be completed with or without assistive devices. 9-Zipufcxitf-oqqdira completes the activity by him/herself with no assistance from a helper. 5-Set-up or Clean-up Assistance-helper sets up or cleans up; patient completes activity. [place] assists only prior to or following the activity. 4-Supervision or Touching Assistance-helper provides verbal cues and/or touching/steadying and/or contact guard assistance as patient completes activity. Assistance may be provided throughout the activity or intermittently. 3-Partial/Moderate Assistance-helper does LESS THAN HALF the effort. [place] lifts, holds or supports trunk or limbs, but provides less than half the effort. 2-Substantial/Maximal Assistance-helper does MORE THAN HALF the effort. [place] lifts or holds trunk or limbs and provides more than half the effort. 2-Duzvjjkwr-whkntg does ALL the effort. Patient does none of the effort to complete the activity. Or, the assistance of 2 or more helpers is required for the patient to complete the activity. If activity was not attempted, code reason: 7-Patient Refused. 9-Not Applicable-not attempted and the patient did not perform the activity before the current illness, exacerbation or injury. 10-Not Attempted due to Environmental Limitations-(lack of equipment, weather restraints, etc.). 88-Not Attempted due to Medical Conditions or Safety Concerns. Roll Left to Right (QC): 6 Sit to Lying (QC): 4 Sit to Stand (QC): 4 Chair/Gxd-rl-Mgebh Xfer(QC): 4 Car Transfer (QC): 4 Gait Training Does the Patient Walk?: Yes Distance: 200' Walk 10 feet (QC): 4 Walk 50 ft with 2 Turns(QC): 4 Walk 150 ft (QC): 4 Walking 10ft/uneven surface-QC: 4 Gait Persons Needed: 1 Gait Assistive Device: FWW Wheelchair Training Does the Pt Use a Wheelchair?: No Wheel 50 ft with 2 turns (QC): 9 Wheel 150 ft (QC): 9 Type of Wheelchair: N/A Stair Training 1 Step (curb) (QC): 7 4 Steps (QC): 7 12 Steps (QC): 7 Balance Picking up an Object (QC): 7 ADL-Treatment Eating (QC): 5 Oral Hygiene (QC): 4 (CGA-SBA for standing balance ) Bathing Location: L Arm, R Arm, Perineal Area Shower/Bathe Self (QC): 4 (SBA for standing balance when cleaning periarea/buttocks) Upper Body Dressing (QC): 4 (V/c's to fully don shirt) Lower Body Dressing (QC): 3 (Min A to thread RLE into brief) On/Off Footwear (QC): 5 (gripper socks) Toileting Hygiene (QC): 3 (Min A to maneuver clothing and for standing balance during pant hike) Assessment/Plan Assessment and Plan Assess & Plan/Chief Complaint Assessment: s/p craniotomy 05/15/22 due to melanoma with mets HTN HLP Seizure risk Confusion Generalized weakness Incontinence Plan: PT OT Home meds Fall risk 05/23/2022: Monitor pain Fall risk 05/24/2022: Monitor pain Steroids 05/25/2022: Continue current treatment Steroid taper per neurosurgery 05/26/2022: Monitor for falls Monitor for pain 05/27/2022: Monitor incontinence 05/28/2022: Monitor closely Fall risk 05/29/2022: Increase ambulation No pain reported 05/30/2022: Monitor closely 05/31/2022: Monitor closely 06/01/2022: Monitor ambulation (1) S/P brain surgery ANSLEY ALSTON DO Jun 01, 2022 06:04
[2022-06-01 06:32] LABS: BASOPHILS # (AUTO) 0.1 10^3/uL (0.0-0.1); BASOPHILS % (AUTO) 1 % (0-10); EOSINOPHILS # (AUTO) 0.1 10^3/uL (0.0-0.3); EOSINOPHILS % (AUTO) 1 % (0-10); HEMATOCRIT 36 % (40-54); HEMOGLOBIN 11.8 g/dL (13.3-17.7); LYMPHOCYTES # (AUTO) 1.8 10^3/uL (1.0-4.0); LYMPHOCYTES % (AUTO) 15 % (12-44); MEAN CORPUSCULAR HEMOGLOBIN 29 pg (25-34); MEAN CORPUSCULAR HGB CONC 33 g/dL (32-36); MEAN CORPUSCULAR VOLUME 89 fL (80-99); MEAN PLATELET VOLUME 8.9 fL (9.0-12.2); MONOCYTES # (AUTO) 0.6 10^3/uL (0.0-1.0); MONOCYTES % (AUTO) 6 % (0-12); NEUTROPHILS # (AUTO) 8.1 10^3/uL (1.8-7.8); NEUTROPHILS % (AUTO) 69 % (42-75); PLATELET COUNT 225 10^3/uL (130-400); WHITE BLOOD COUNT 11.7 10^3/uL (4.3-11.0)
[2022-06-01 06:54] LABS: ALBUMIN 3.3 GM/DL (3.2-4.5); POTASSIUM 3.9 MMOL/L (3.6-5.0)
[2022-06-01 06:55] LABS: CALCIUM 8.6 MG/DL (8.5-10.1)
[2022-06-01 06:57] LABS: TOTAL PROTEIN 5.7 GM/DL (6.4-8.2)
[2022-06-01 06:58] LABS: BILIRUBIN,TOTAL 0.5 MG/DL (0.1-1.0)
[2022-06-01 07:00] LABS: CREATININE SERUM 0.59 MG/DL (0.60-1.30)
[2022-06-01 07:33] VITALS: BP 107/65
[2022-06-01] MEDS: FENOFIBRATE 134 MG (LOFIBRA) CAPSULE PO SCH (08:17)
[2022-06-01] MEDS: FAMOTIDINE 20 MG (PEPCID) TABLET PO SCH ×2 (08:17→21:00)
[2022-06-01] MEDS: polyethylene glycoL POWDER 17 GM (MIRALAX) PACK PO SCH ×2 (08:18→19:42)
[2022-06-01] MEDS: MICONAZOLE 2% POWDER (DESENEX AF) 90 GM TOP SCH ×3 (08:18→21:03)
[2022-06-01] MEDS: DOCUSATE SODIUM 100 MG (COLACE) CAP PO SCH ×2 (09:35→19:42)
[2022-06-01] MEDS: SENNA W/DOCUSATE (SENOKOT S) TABLET PO SCH ×2 (09:35→19:42)
--- NOTE | 2022-06-01 10:17 | Occupational Ther Daily Note ---
OT Current Status-Daily Note Subjective Pt seated in recliner upon OT arrival. Pt was reluctant to participate in therapy today as he says he "does not feel up to therapy today." He reports increased BLE stiffness today. Mental Status/Objective Patient Orientation: Person, Confused, Mumbles ADL-Treatment Therapy Code Descriptions/Definitions Functional [place] Measure: 0=Not Assessed/NA 4=Minimal Assistance 1=Total Assistance 5=Supervision or Setup 2=Maximal Assistance 6=Modified [place] 3=Moderate Assistance 7=Complete IndependenceSCALE: Activities may be completed with or without assistive devices. 0-Bzvcegfvdn-uubydff completes the activity by him/herself with no assistance from a helper. 5-Set-up or Clean-up Assistance-helper sets up or cleans up; patient completes activity. [place] assists only prior to or following the activity. 4-Supervision or Touching Assistance-helper provides verbal cues and/or touching/steadying and/or contact guard assistance as patient completes activity. Assistance may be provided throughout the activity or intermittently. 3-Partial/Moderate Assistance-helper does LESS THAN HALF the effort. [place] lifts, holds or supports trunk or limbs, but provides less than half the effort. 2-Substantial/Maximal Assistance-helper does MORE THAN HALF the effort. [place] lifts or holds trunk or limbs and provides more than half the effort. 1-Ufkwapsqk-dkvbdg does ALL the effort. Patient does none of the effort to complete the activity. Or, the assistance of 2 or more helpers is required for the patient to complete the activity. If activity was not attempted, code reason: 7-Patient Refused. 9-Not Applicable-not attempted and the patient did not perform the activity before the current illness, exacerbation or injury. 10-Not Attempted due to Environmental Limitations-(lack of equipment, weather restraints, etc.). 88-Not Attempted due to Medical Conditions or Safety Concerns. Oral Hygiene (QC): 4 (SBA for standing balance and v/c's for sequencing) Shower/Bathe Self (QC): 4 (V/c's for sequencing) Upper Body Dressing (QC): 4 (V/c's for sequencing) Lower Body Dressing (QC): 3 (Min A to thread RLE into brief) On/Off Footwear: 4 (SBA for seated balance when threading BLE into gripper socks) Toileting Hygiene (QC): 4 (SBA for standing balance during pant hike) Other Treatment Pt walked from recliner to bathroom with FWW, SBA, to complete toileting, showering, dressing, and oral care/grooming tasks. He showed improvements in FWW safety today from previous tx sessions, but he still required v/c's to keep FWW close to him when walking. Pt required frequent verbal and visual cues for initiation and sequencing throughout tx. He completed dressing out in room while seated in chair without armrests to provide appropriate support needed for seated balance while dressing. Afterwards, pt walked to [facility] to play card game. This activity challenged pt's functional standing balance, sequencing, ability to follow directions, and appropriate social skills. Pt was able to stand for 8min before taking a seated RB. Pt stood for 6mins during s econd game before requesting a seated RB, game finished in seated position. Pt also participated in simulated laundry task as he says he will be doing his own laundry at home. OT provided education on FWW placement and safety during IADL tasks, pt able to return demonstration but his ability to recall instruction at a later time is unclear. Pt walked back to room with FWW, SBA, and requested to get in bed. Pt was impulsive, attempting to sit down before physically reaching bed or reaching hands back for the bed. Pt immediately rolled to side and fell asleep. Post tx, pt left in bed with call light in reach and all needs met. Education OT Patient Education: Correct positioning, Energy conservation, Exercise program, Modified ADL techniques, Progress toward Goal/Update tx plan, Purpose of tx/functional activities, Rehab process, Safety issues, Transfer techniques Teaching Recipient: Patient Teaching Methods: Demonstration, Discussion Response to Teaching: Verbalize Understanding, Unable to Return Demonstration, Return Demonstration, Reinforcement Needed OT Short Term Goals Short Term Goals Time Frame: Jun 05, 2022 Oral hygiene: 5 Upper body dressin OT Iron Carrier Goals Iron Carrier Goals Time Frame: Jun 19, 2022 Eating (QC): 5 Oral Hygiene (QC): 6 Toileting Hygiene (QC): 6 Shower/Bathe Self (QC): 4 Upper Body Dressing (QC): 5 Lower Body Dressing (QC): 4 On/Off Footwear (QC): 4 Additional Goals: 1-Demonstrate ADL Tasks, 2-Verbalize Understanding, 3- ImproveStrength/Enrico 1=Demonstrate adherence to instructed precautions during ADL tasks. 2=Patient will verbalize/demonstrate understanding of assistive devices/modif ications for ADL. 3=Patient will improve strength/tolerance for activity to enable patient to perform ADL's. OT Education/Plan Problem List/Assessment Assessment: Decreased Activ Tolerance, Decreased Safety Aware, Decreased UE Strength, Impaired Cognition, Impaired Coordination, Impaired Funct Balance, Impaired I ADL's, Impaired Self-Care Skills Discharge Recommendations Plan/Recommendations: Continue POC Treatment Plan/Plan of Care Patient would benefit from OT for education, treatment and training to promote independence in ADL's, mobility, safety and/or upper extremity function for ADL's. Plan of Care: ADL Retraining, Functional Mobility, Group Exercise/Act as Ind, UE Funct Exercise/Act, UE Neuromus Re-Ed/Coord, Visual/Perceptual Retrain Treatment Duration: Jun 19, 2022 Frequency: At least 5 of 7 days/Wk (IRF) Estimated Hrs Per Day: 1.5 hours per day Agreement: Yes Rehab Potential: Fair Time/GCodes Start Time: 09:00 Stop Time: 10:15 Total Time Billed (hr/min): 75 Billed Treatment Time 1, ADL 3 (40'), FA 2 (35') CARMEN MC OT Jun 01, 2022 10:17
--- NOTE | 2022-06-01 11:57 | Physical Therapy Daily Note ---
PT Daily Note-Current Subjective Pt L sidelying in bed upon arrival. Pt agrees to PT. Pain Location: Right, Left Location Body Site: Foot Pain Description: Tingling, Numbness Comment: Reports sensation change in B feet but doesn't report pain Mental Status Patient Orientation: Person, Place Transfers SCALE: Activities may be completed with or without assistive devices. 3-[place]-smvggtm completes the activity by him/herself with no assistance from a helper. 5-Set-up or Clean-up Assistance-helper sets up or cleans up; patient completes activity. [place] assists only prior to or following the activity. 4-Supervision or Touching Assistance-helper provides verbal cues and/or touching/steadying and/or contact guard assistance as patient completes activity. Assistance may be provided throughout the activity or intermittently. 3-Partial/Moderate Assistance-helper does LESS THAN HALF the effort. [place] lift s, holds or supports trunk or limbs, but provides less than half the effort. 2-Substantial/Maximal Assistance-helper does MORE THAN HALF the effort. [place] lifts or holds trunk or limbs and provides more than half the effort. 5-Qftilxxga-hzxkho does ALL the effort. Patient does none of the effort to complete the activity. Or, the assistance of 2 or more helpers is required for the patient to complete the activity. If activity was not attempted, code reason: 7-Patient Refused. 9-Not Applicable-not attempted and the patient did not perform the activity before the current illness, exacerbation or injury. 10-Not Attempted due to Environmental Limitations-(lack of equipment, weather restraints, etc.). 88-Not Attempted due to Medical Conditions or Safety Concerns. Lying to Sitting/Side of Bed(Q: 4 Sit to Stand (QC): 5 Weight Bearing Full Weight Bearing Full Weight Bearing Gait Training Does the Patient Walk?: Yes Distance: 50' Walk 10 feet (QC): 4 Walk 50 ft with 2 Turns(QC): 4 Gait Assistive Device: FWW Exercises Supine Ex: Ankle pumps, Quad Set, Glut sets, Heel Slides, Straight leg raise, Hip abd/add Supine Reps: 15 Seated Therapy Exercises: Ankle pumps, Long arc quads, Hip flexion, Hip abd/add, Glut set Seated Reps: 15 Treatments SOLDERER TORCH encourages pt to continue moving for improved circulation. Pt completes Supine & Seated EX. Written HEP provided for Supine & Seated Ex. TF from Bed standing & amb. before TF to recliner. Pt resting at end of tx with all needs met, call light in hand. Assessment Current Status: Fair Progress VC for encouragement and safety needed. PT Short Term Goals Short Term Goals Time Frame: May 29, 2022 Roll Left & Right: 6 Sit to lyin Lying to sitting on side of be: 4 Sit to stand: 4 Chair/qqs-ja-mozbg transfer: 4 Walk 10 feet: 4 Walk 50 feet with two turns: 4 Walk 150 feet: 4 PT Mcfp Goals Mcfp Goals PT Meter Engineer Goals Time Frame: Jun 12, 2022 Roll Left & Right (QC): 6 Sit to Lying (QC): 6 Lying-Sitting on Side/Bed(QC): 6 Sit to Stand (QC): 6 Chair/Fdi-vv-Nickv Xfer(QC): 5 Toilet Transfer (QC): 5 Car Transfer (QC): 5 Does the Patient Walk: Yes Walk 10 feet (QC): 5 Walk 50ft with 2 Turns (QC): 5 Walk 150 ft (QC): 5 Walking 10ft on Uneven Surface: 5 1 Step (curb) (QC): 4 4 Steps (QC): 4 12 Steps (QC): 88 Picking up an Object (QC): 4 (using night supervisor) Wheel 50 feet with 2 turns (QC: 9 Wheel 150 feet: 9 PT Plan Problem List Problem List: Activity Tolerance, Safety Treatment/Plan Treatment Plan: Continue Plan of Care Treatment Plan: Bed Mobility, Education, Functional Activity Enrico, Functional Strength, Group Therapy, Gait, Safety, Therapeutic Exercise, Transfers Treatment Duration: Jun 12, 2022 Frequency: At least 5 of 7 days/Wk (IRF) Estimated Hrs Per Day: 1.5 hours per day Patient and/or Family Agrees t: Yes Safety Risks/Education Patient Education: Gait Training, Transfer Techniques, Issued Written HEP, Safety Issues Teaching Recipient: Patient Teaching Methods: Discussion Response to Teaching: Verbalize Understanding Time/GCodes Time In: 1100 Time Out: 1200 Total Billed Treatment Time: 60 Total Billed Treatment 1, FA x2 (30m) & EX x2 (30m) HÉCTOR RODRIGUEZ SOLDERER TORCH Jun 01, 2022 11:57
--- NOTE | 2022-06-01 12:09 | Speech Therapy Daily Note ---
Speech Daily Progress Note Subjective Date Seen by Provider: Jun 01, 2022 Time Seen by Provider: 08:30 The patient was seated upright in his recliner, awake and alert upon entrance to his room by the clinician. The patient greeted the clinician appropriately and was agreeable to participation in the cognitive linguistic treatment session. Objective - Orientation: The patient was oriented to date, month, year, place, and city. The patient was not oriented to the day of the week. The patient attempted a delayed recall task on this date. The patient was able to recall two of five words immediately. The patient was able to recall one of five words following a five minute delay. With category cues, the patient's accuracy increased to four of five words. Assessment Assessment Current Status: Fair Progress Treatment Plan Continue Plan of Care Speech Short Term Goals Short Term Goals Short Term Goals The patient will display 80% accuracy with memory and functional problem solving exercises, given minimal verbal/visual cues. Speech Senior Care Goals Senior Care Goals The patient will display improved cognitive linguistic function for safe discharge to the least restrictive environment Speech-Plan Treatment Plan Speech Therapy Treatment Plan: Continue Plan of Care Treatment Duration: Jun 08, 2022 Frequency: Modified Program (IRF) Estimated Hrs Per Day: .5 hour per day Rehab Potential: Fair Safety Risks/Education Teaching Recipient: Patient Teaching Methods: Demonstration, Discussion Response to Teaching: Reinforcement Needed Education Topics Provided: Internal Memory Strategies Time Speech Therapy Time In: 08:30 Speech Therapy Time Out: 09:00 Total Billed Time: 30 Billed Treatment Time HALI Urena Richelle GARCIATAMARA ST Jun 01, 2022 12:09
[2022-06-01] MEDS ORDERED: DICL75TA2 PO (14:22)
[2022-06-01] MEDS ORDERED: PRAV20TA3 PO (14:22)
[2022-06-01] MEDS ORDERED: FENO160T12 PO (14:22)
[2022-06-01] MEDS ORDERED: DEXA4TAB PO (14:22)
[2022-06-01] MEDS ORDERED: SPIR50TA PO (14:22)
--- NOTE | 2022-06-01 14:55 | Physical Therapy Daily Note ---
PT Daily Note-Current Subjective Pt sitting in recliner but slumped over and asleep. Pt agrees to PT. Mental Status Patient Orientation: Person, Confused, Place Transfers SCALE: Activities may be completed with or without assistive devices. 1-Xpueoeejzi-qmnxgsn completes the activity by him/herself with no assistance from a helper. 5-Set-up or Clean-up Assistance-helper sets up or cleans up; patient completes activity. [place] assists only prior to or following the activity. 4-Supervision or Touching Assistance-helper provides verbal cues and/or touching/steadying and/or contact guard assistance as patient completes activity. Assistance may be provided throughout the activity or intermittently. 3-Partial/Moderate Assistance-helper does LESS THAN HALF the effort. [place] li fts, holds or supports trunk or limbs, but provides less than half the effort. 2-Substantial/Maximal Assistance-helper does MORE THAN HALF the effort. [place] lifts or holds trunk or limbs and provides more than half the effort. 9-Oqhmketii-zndfzl does ALL the effort. Patient does none of the effort to complete the activity. Or, the assistance of 2 or more helpers is required for the patient to complete the activity. If activity was not attempted, code reason: 7-Patient Refused. 9-Not Applicable-not attempted and the patient did not perform the activity before the current illness, exacerbation or injury. 10-Not Attempted due to Environmental Limitations-(lack of equipment, weather restraints, etc.). 88-Not Attempted due to Medical Conditions or Safety Concerns. Weight Bearing Full Weight Bearing Full Weight Bearing Exercises Supine Ex: Ankle pumps, Quad Set, Glut sets, Heel Slides, Scooting, Straight leg raise, Hip abd/add Supine Reps: 15 Treatments AIR QUALITY CHEMIST gives VC & TC as pt completes Supine EX and scoots self of in recliner. Pt resting at end of tx, all needs met & call light in hand. Assessment Current Status: Fair Progress Pt is sleepy and requires increased VC & TC to completes EX. PT Short Term Goals Short Term Goals Time Frame: May 29, 2022 Roll Left & Right: 6 Sit to lyin Lying to sitting on side of be: 4 Sit to stand: 4 Chair/mor-ym-erwpo transfer: 4 Walk 10 feet: 4 Walk 50 feet with two turns: 4 Walk 150 feet: 4 PT Children'S Service Worker Goals Children'S Service Worker Goals PT Children'S Service Worker Goals Time Frame: Jun 12, 2022 Roll Left & Right (QC): 6 Sit to Lying (QC): 6 Lying-Sitting on Side/Bed(QC): 6 Sit to Stand (QC): 6 Chair/Sps-tl-Ububf Xfer(QC): 5 Toilet Transfer (QC): 5 Car Transfer (QC): 5 Does the Patient Walk: Yes Walk 10 feet (QC): 5 Walk 50ft with 2 Turns (QC): 5 Walk 150 ft (QC): 5 Walking 10ft on Uneven Surface: 5 1 Step (curb) (QC): 4 4 Steps (QC): 4 12 Steps (QC): 88 Picking up an Object (QC): 4 (using facilities flight check pilot) Wheel 50 feet with 2 turns (QC: 9 Wheel 150 feet: 9 PT Plan Problem List Problem List: Activity Tolerance Treatment/Plan Treatment Plan: Continue Plan of Care Treatment Plan: Bed Mobility, Education, Functional Activity Enrico, Functional Strength, Group Therapy, Gait, Safety, Therapeutic Exercise, Transfers Treatment Duration: Jun 12, 2022 Frequency: At least 5 of 7 days/Wk (IRF) Estimated Hrs Per Day: 1.5 hours per day Patient and/or Family Agrees t: Yes Safety Risks/Education Patient Education: Transfer Techniques, Correct Positioning Teaching Recipient: Patient Teaching Methods: Discussion Response to Teaching: Reinforcement Needed Time/GCodes Time In: 1400 Time Out: 1415 Total Billed Treatment Time: 15 Total Billed Treatment 1, EX (15m) HÉCTOR RODRIGUEZ AIR QUALITY CHEMIST Jun 01, 2022 14:54
[2022-06-01 19:52] VITALS: BP 100/55
[2022-06-01 20:55] VITALS: BP 102/58
--- NOTE | 2022-06-02 06:09 | PM&R Progress Note ---
Subjective HPI/CC On Admission Date Seen by Provider: Jun 02, 2022 Time Seen by Provider: 09:00 Subjective/Events-last exam 06/02/2022: DC soon Patient doing well No pain reported 06/01/2022: Pt is doing well Incontinence at night White count is 11.7 Sodium level is 133 Increasing ambulation 05/31/2022: Doing well No major concerns Wants to go home soon Labs due tomorrow 05/30/2022: Doing well No issues Sleeping currently 05/29/2022: Pt is having incontinence at night Discontinue the earnest today Family was visiting today 05/28/2022: Patient seems to be ambulating well No falls ADL's are improving 05/27/2022: Pt is doing very well Chronic bp is 90 Incontinent at night Bowels are moving 05/26/2022: No major issues BM+ No falls Participating with PT OT 05/25/2022: Patient doing well No concerns With heavy cues to keep on task 05/24/2022: Patient doing well Took a shower today No pain reported 05/23/2022: Doing well Brother at bedside Asked about pathology and I don't have access to that No pain reported Confusion noted WBC elevated from steroids Review of Systems General: Fatigue, Malaise Objective Exam Vital Signs Vital Signs Date Time Temp Pulse Resp B/P (MAP) Pulse Ox O2 Delivery O2 Flow Rate FiO2 06/02/22 19:54 36.5 77 20 98/54 (69) 99 Room Air Capillary Refill : General Appearance: No Apparent Distress, WD/WN, Chronically ill, Thin HEENT: PERRL/EOMI, Normal ENT Inspection, Pharynx Normal Neck: Full Range of Motion, Normal Inspection, Non Tender, Supple, Carotid Bruit Respiratory: Chest Non Tender, Lungs Clear, Normal Breath Sounds, No Accessory Muscle Use, No Respiratory Distress Cardiovascular: Regular Rate, Rhythm, No Edema, No Gallop, No JVD, No Murmur, Normal Peripheral Pulses Gastrointestinal: Normal Bowel Sounds, No Organomegaly, No Pulsatile Mass, Non Tender, Soft Back: Normal Inspection, No CVA Tenderness, No Vertebral Tenderness Extremity: Normal Capillary Refill, Normal Inspection, Normal Range of Motion, Non Tender, No Calf Tenderness, No Pedal Edema Neurologic/Psychiatric: Alert, No Motor/Sensory Deficits, elevator erector II-XII Norm as Tested, Abnormal Gait, Depressed Affect, Disoriented, Facial Droop, Motor Weakness (2/5 lower extremities, 3/5 upper) Skin: Normal Color, Warm/Dry Lymphatic: No Adenopathy Results/Procedures Lab Patient resulted labs reviewed. FIM Transfers Therapy Code Descriptions/Definitions Functional [place] Measure: 0=Not Assessed/NA 4=Minimal Assistance 1=Total Assistance 5=Supervision or Setup 2=Maximal Assistance 6=Modified [place] 3=Moderate Assistance 7=Complete IndependenceSCALE: Activities may be completed with or without assistive devices. 9-Zzfgybvhtc-tuzaxll completes the activity by him/herself with no assistance from a helper. 5-Set-up or Clean-up Assistance-helper sets up or cleans up; patient completes activity. [place] assists only prior to or following the activity. 4-Supervision or Touching Assistance-helper provides verbal cues and/or touching/steadying and/or contact guard assistance as patient completes activity. Assistance may be provided throughout the activity or intermittently. 3-Partial/Moderate Assistance-helper does LESS THAN HALF the effort. [place] lifts, holds or supports trunk or limbs, but provides less than half the effort. 2-Substantial/Maximal Assistance-helper does MORE THAN HALF the effort. [place] lifts or holds trunk or limbs and provides more than half the effort. 8-Vryxnjdsr-kgbvrj does ALL the effort. Patient does none of the effort to complete the activity. Or, the assistance of 2 or more helpers is required for the patient to complete the activity. If activity was not attempted, code reason: 7-Patient Refused. 9-Not Applicable-not attempted and the patient did not perform the activity befo re the current illness, exacerbation or injury. 10-Not Attempted due to Environmental Limitations-(lack of equipment, weather re straints, etc.). 88-Not Attempted due to Medical Conditions or Safety Concerns. Roll Left to Right (QC): 6 Sit to Lying (QC): 4 Sit to Stand (QC): 5 Chair/Roj-vz-Hnwlk Xfer(QC): 4 Car Transfer (QC): 4 Gait Training Does the Patient Walk?: Yes Distance: 50' Walk 10 feet (QC): 4 Walk 50 ft with 2 Turns(QC): 4 Walk 150 ft (QC): 4 Walking 10ft/uneven surface-QC: 4 Gait Persons Needed: 1 Gait Assistive Device: FWW Wheelchair Training Does the Pt Use a Wheelchair?: No Wheel 50 ft with 2 turns (QC): 9 Wheel 150 ft (QC): 9 Type of Wheelchair: N/A Stair Training 1 Step (curb) (QC): 7 4 Steps (QC): 7 12 Steps (QC): 7 Balance Picking up an Object (QC): 7 ADL-Treatment Eating (QC): 5 Oral Hygiene (QC): 4 (SBA for standing balance and v/c's for sequencing) Bathing Location: L Arm, R Arm, Perineal Area Shower/Bathe Self (QC): 4 (V/c's for sequencing) Upper Body Dressing (QC): 4 (V/c's for sequencing) Lower Body Dressing (QC): 3 (Min A to thread RLE into brief) On/Off Footwear (QC): 4 (SBA for seated balance when threading BLE into gripper socks) Toileting Hygiene (QC): 4 (SBA for standing balance during pant hike) Assessment/Plan Assessment and Plan Assess & Plan/Chief Complaint Assessment: s/p craniotomy 05/15/22 due to melanoma with mets HTN HLP Seizure risk Confusion Generalized weakness Incontinence Plan: PT OT Home meds Fall risk 05/23/2022: Monitor pain Fall risk 05/24/2022: Monitor pain Steroids 05/25/2022: Continue current treatment Steroid taper per neurosurgery 05/26/2022: Monitor for falls Monitor for pain 05/27/2022: Monitor incontinence 05/28/2022: Monitor closely Fall risk 05/29/2022: Increase ambulation No pain reported 05/30/2022: Monitor closely 05/31/2022: Monitor closely 06/01/2022: Monitor ambulation 06/02/2022: Continue treatment (1) S/P brain surgery ANSLEY ALSTON DO Jun 02, 2022 06:09
[2022-06-02 08:00] VITALS: BP 115/58
[2022-06-02] MEDS: FENOFIBRATE 134 MG (LOFIBRA) CAPSULE PO SCH (08:57)
[2022-06-02] MEDS: FAMOTIDINE 20 MG (PEPCID) TABLET PO SCH ×2 (08:58→20:15)
--- NOTE | 2022-06-02 09:01 | Speech Therapy Daily Note ---
Speech Daily Progress Note Subjective Date Seen by Provider: Jun 02, 2022 Time Seen by Provider: 08:30 The patient was seated upright in his recliner, awake and alert upon entrance to his room by the clinician. The patient greeted the clinician appropriately and was agreeable to participation in the cognitive linguistic treatment session. Objective Orientation: The patient was independently oriented to self, location, month, day of the week, date, and year. The patient and clinician reviewed safety information shared and encouraged by physical therapy and occupational therapy. The patient was reminded to consistently use his walker at home and request help when necessary and needed. Per patient, "I've got a lot of stuff all over in my home, it might be a tight fit." The patient was encouraged to visit with his family members regarding arranging his home for safe mobility. Expression of Ideas/Wants: Frequently (2) Understanding Verbal Content: Usually Understands (3) Brief Interview-Mental Status: Yes Repetition of Three Words: (3) Temporal Orientation: Year: Accurate year. Temporal Orientation: Month: Correct (1) Temporal Orientation: Day: Correct (1) Recall : Wear to say "Sock": Could recall with cue (1) Recall : Color: No, could not recall (0) Recall : Bed: Recalled, no cue. (2) Memory/Recall Ability: Hospital, season, staff names, and room number were recalled. Assessment Assessment Current Status: Fair Progress Treatment Plan Continue Plan of Care Speech Short Term Goals Short Term Goals Short Term Goals The patient will display 80% accuracy with memory and functional problem solving exercises, given minimal verbal/visual cues. Speech Lunchroom Aide Goals Lunchroom Aide Goals The patient will display improved cognitive linguistic function for safe discharge to the least restrictive environment Speech-Plan Treatment Plan Speech Therapy Treatment Plan: Continue Plan of Care Treatment Duration: Jun 08, 2022 Frequency: Modified Program (IRF) Estimated Hrs Per Day: .5 hour per day Rehab Potential: Fair Safety Risks/Education Teaching Recipient: Patient Teaching Methods: Discussion Response to Teaching: Reinforcement Needed Education Topics Provided: Safety in the Home Time Speech Therapy Time In: 08:30 Speech Therapy Time Out: 09:00 Total Billed Time: 30 Billed Treatment Time HALI Urena [facility] Jun 02, 2022 09:01
--- NOTE | 2022-06-02 09:02 | Therapy Team Discharge Summary ---
Therapy Discharge Summary Discharge Recommendations Date of Discharge Physical Therapy Roll Left to Right (QC): 6 Sit to Lying (QC): 4 Lying to Sitting/Side of Bed(Q: 4 Sit to Stand (QC): 5 Chair/Rbn-xo-Qmkbw Xfer(QC): 4 Toilet Transfer (QC): 4 Car Transfer (QC): 4 Does the Patient Walk: Yes Mode of Locomotion: Walk Anticipated Mode of Locomotion: Walk Walk 10 feet (QC): 4 Walk 50 ft with 2 Turns(QC): 4 Walk 150 ft (QC): 4 Walking 10ft on uneven surface: 4 Distance: 120', 60'x2 Gait Assistive Device: FWW Does the Pt Use a Wheelchair: No Wheel 50 ft with 2 turns (QC): 9 Wheel 150 ft (QC): 9 Type of Wheelchair: N/A 1 Step (curb) (QC): 7 4 Steps (QC): 7 12 Steps (QC): 7 Balance Sitting Static: Normal Balance Sitting Dynamic: Normal Balance-Standing Static: Fair Picking up an Object (QC): 7 Occupational Therapy Decreased Activ Tolerance, Decreased Safety Aware, Decreased UE Strength, Impaired Cognition, Impaired Coordination, Impaired Funct Balance, Impaired I ADL's, Impaired Self-Care Skills Eating (QC): 5 Oral Hygiene (QC): 4 (SBA for standing balance and v/c's for sequencing) Shower/Bathe Self (QC): 4 (V/c's for sequencing) Upper Body Dressing (QC): 4 (V/c's for sequencing) Lower Body Dressing (QC): 3 (Min A to thread RLE into brief) On/Off Footwear (QC): 4 (SBA for seated balance when threading BLE into gripper socks) Toileting Hygiene (QC): 4 (SBA for standing balance during pant hike) Speech-Language Pathology Expression of Ideas/Wants: Frequently (2) Understanding Verbal Content: Usually Understands (3) Brief Interview-Mental Status: Yes Repetition of Three Words: (3) Temporal Orientation: Year: Accurate year. Temporal Orientation: Month: Correct (1) Temporal Orientation: Day: Correct (1) Recall : Wear to say "Sock": Could recall with cue (1) Recall : Color: No, could not recall (0) Recall : Bed: Recalled, no cue. (2) Memory/Recall Ability: Hospital, season, staff names, and room number were recalled. PT Supervisor Public Message Service Goals Supervisor Public Message Service Goals PT Supervisor Public Message Service Goals Time Frame: Jun 12, 2022 Roll Left to Right (QC): 6 Sit to Lying (QC): 6 Lying-Sitting on Side/Bed(QC): 6 Sit to Stand (QC): 6 Chair/Mzg-oh-Ursiq Xfer(QC): 5 Car Transfer (QC): 5 Does the Patient Walk: Yes Walk 10 feet (QC): 5 Walk 10ft-Uneven Surface(QC): 5 Walk 50ft with 2 Turns (QC): 5 Walk 150 ft (QC): 5 Wheel 50 feet with 2 turns (QC: 9 1 Step (curb) (QC): 4 4 Steps (QC): 4 12 Steps (QC): 88 Picking up an Object (QC): 4 (using lead systems architect) OT Senior Care Goals Senior Care Goals Time Frame: Jun 19, 2022 Eating (QC): 5 Oral Hygiene (QC): 6 Shower/Bathe Self (QC): 4 Upper Body Dressing (QC): 5 Lower Body Dressing (QC): 4 On/Off Footwear (QC): 4 Toileting Hygiene (QC): 6 Toilet/Commode Transfer (QC): 5 Additional Goals: 1-Demonstrate ADL Tasks, 2-Verbalize Understanding, 3- ImproveStrength/Enrico 1=Demonstrate adherence to instructed precautions during ADL tasks. 2=Patient will verbalize/demonstrate understanding of assistive devices/modifications for ADL. 3=Patient will improve strength/tolerance for activity to enable patient to perform ADL's. Speech Senior Care Goals Senior Care Goals The patient will display improved cognitive linguistic function for safe discharge to the least restrictive environment. The patient was progressing tow ards goals, however, continues to require verbal cues for safety and increased processing speeds. TAMARA GARCIA Jun 02, 2022 09:02
[2022-06-02] MEDS: DOCUSATE SODIUM 100 MG (COLACE) CAP PO SCH ×2 (09:16→20:15)
[2022-06-02] MEDS: polyethylene glycoL POWDER 17 GM (MIRALAX) PACK PO SCH ×2 (09:16→20:15)
[2022-06-02] MEDS: SENNA W/DOCUSATE (SENOKOT S) TABLET PO SCH ×2 (09:17→20:15)
[2022-06-02] MEDS: MICONAZOLE 2% POWDER (DESENEX AF) 90 GM TOP SCH ×2 (09:18→20:15)
--- NOTE | 2022-06-02 09:39 | Occupational Ther Daily Note ---
OT Current Status-Daily Note Subjective Pt seated in recliner upon OT arrival, reluctant to participate in therapy again today. Pt became progressively agitated throughout session. Mental Status/Objective Patient Orientation: Person, Confused, Mumbles ADL-Treatment Therapy Code Descriptions/Definitions Functional [place] Measure: 0=Not Assessed/NA 4=Minimal Assistance 1=Total Assistance 5=Supervision or Setup 2=Maximal Assistance 6=Modified [place] 3=Moderate Assistance 7=Complete IndependenceSCALE: Activities may be completed with or without assistive devices. 6-Odrntzvibq-ctjskjn completes the activity by him/herself with no assistance from a helper. 5-Set-up or Clean-up Assistance-helper sets up or cleans up; patient completes activity. [place] assists only prior to or following the activity. 4-Supervision or Touching Assistance-helper provides verbal cues and/or touching/steadying and/or contact guard assistance as patient completes activit y. Assistance may be provided throughout the activity or intermittently. 3-Partial/Moderate Assistance-helper does LESS THAN HALF the effort. [place] lifts, holds or supports trunk or limbs, but provides less than half the effort. 2-Substantial/Maximal Assistance-helper does MORE THAN HALF the effort. [place] lifts or holds trunk or limbs and provides more than half the effort. 9-Kfpnqimci-ulbish does ALL the effort. Patient does none of the effort to complete the activity. Or, the assistance of 2 or more helpers is required for the patient to complete the activity. If activity was not attempted, code reason: 7-Patient Refused. 9-Not Applicable-not attempted and the patient did not perform the activity before the current illness, exacerbation or injury. 10-Not Attempted due to Environmental Limitations-(lack of equipment, weather restraints, etc.). 88-Not Attempted due to Medical Conditions or Safety Concerns. Eating (QC): 5 (Assistance to cut up food and open some containers) Oral Hygiene (QC): 4 (SBA standing at sink, v/c's for sequencing) Shower/Bathe Self (QC): 4 (V/c's for sequencing) Upper Body Dressing (QC): 5 Lower Body Dressing (QC): 4 (SBA to hike pants) On/Off Footwear: 3 (Min A to hike R gripper sock, v/c's for foot placement) Toileting Hygiene (QC): 4 (SBA for pant hike, v/c's for sequencing) Other Treatment Pt stood from recliner and walked with FWW to retrieve clothing items from closet, SBA. He required v/c's to scan drawers and get appropriate items. He walked to bathroom to complete showering, dressing, and grooming tasks. During showering, clinician noticed rash around pt's groin, nurse notified. After completing grooming tasks at sink, pt completed dressing while seated in chair without armrests. Pt used FWW to walk to therapy gym, SBA, requiring verbal and tactile cues to keep FWW close to him. Pt verbalized understanding but would immediately push FWW further away from himself. Pt completed 6min standing on arm bike (15watts of resistance) to increase standing activity tolerance, and he participated in dowel azael and Theraband exercises to increase BUE strength and endurance needed for ADLs and functional transfers. He completed 2x10 of the following with a 3lb-weighted dowel azael: overhead presses, chest presses, and bicep curls. He then completed 2x10 reps of RUE rows and chest presses with green Theraband (mod-heavy resistance). Pt required v/c's to breath during exercises and to complete exercises in a slow, controlled manner as pt tried to ortiz through them. Afterwards, pt stood at whiteboard and completed two shape designs(tangrams), standing for 5mins total. This activity challenged his standing activity tolerance, visual perception, and scanning abilities. Pt became increasingly agitated towards end of therapy, eager to return to bed and rest. Pt showed poor safety awareness, requiring max verbal and tactile cues to walk slowly with FWW close to him, bring the FWW all the way to the bed, and to reach back for the bed with hands. Pt ignored instruction from clinician, laying down before properly positioned in bed, assist x2 required to boost pt to HOB. Post tx, pt left in bed with call light within reach and all needs met. Education OT Patient Education: Correct positioning, Energy conservation, Exercise program, Modified ADL techniques, Progress toward Goal/Update tx plan, Purpose of tx/functional activities, Rehab process, Safety issues, Transfer techniques Teaching Recipient: Patient Teaching Methods: Demonstration, Discussion Response to Teaching: Verbalize Understanding, Return Demonstration, Reinforcement Needed OT Short Term Goals Short Term Goals Time Frame: Jun 05, 2022 Oral hygiene: 5 Upper body dressin OT Nursing Home Goals Nursing Home Goals Time Frame: Jun 19, 2022 Eating (QC): 5 (met) Oral Hygiene (QC): 6 (not met) Toileting Hygiene (QC): 6 (not met) Shower/Bathe Self (QC): 4 (met) Upper Body Dressing (QC): 5 (met) Lower Body Dressing (QC): 4 (not met) On/Off Footwear (QC): 4 (not met) Additional Goals: 1-Demonstrate ADL Tasks, 2-Verbalize Understanding, 3- ImproveStrength/Enrico 1=Demonstrate adherence to instructed precautions during ADL tasks. 2=Patient will verbalize/demonstrate understanding of assistive devices/modifications for ADL. 3=Patient will improve strength/tolerance for activity to enable patient to perform ADL's. OT Education/Plan Problem List/Assessment Assessment: Decreased Activ Tolerance, Decreased Safety Aware, Decreased UE Strength, Impaired Cognition, Impaired Coordination, Impaired Funct Balance, Impaired I ADL's, Impaired Self-Care Skills Discharge Recommendations Plan/Recommendations: Continue POC Treatment Plan/Plan of Care Patient would benefit from OT for education, treatment and training to promote independence in ADL's, mobility, safety and/or upper extremity function for ADL's. Plan of Care: ADL Retraining, Functional Mobility, Group Exercise/Act as Ind, UE Funct Exercise/Act, UE Neuromus Re-Ed/Coord, Visual/Perceptual Retrain Treatment Duration: Jun 19, 2022 Frequency: At least 5 of 7 days/Wk (IRF) Estimated Hrs Per Day: 1.5 hours per day Agreement: Yes Rehab Potential: Fair Time/GCodes Start Time: 09:00 Stop Time: 10:15 Total Time Billed (hr/min): 75 Billed Treatment Time 1, ADL 2 (30'), Ex 2 (30'), FA (15') CARMEN [facility] OT Jun 02, 2022 09:39
--- NOTE | 2022-06-02 12:12 | Physical Therapy Daily Note ---
PT Daily Note-Current Subjective Pt laying Supine in bed upon arrival. Pt demonstrates agitation during tx and reluctantly agrees to PT when explained that this QC scoring needed to d/c tomorrow. Pain Location: No Pain Reported Mental Status Patient Orientation: Person, Confused Transfers SCALE: Activities may be completed with or without assistive devices. 2-Zkfmbjhbpc-pnhsxrj completes the activity by him/herself with no assistance from a helper. 5-Set-up or Clean-up Assistance-helper sets up or cleans up; patient completes activity. [place] assists only prior to or following the activity. 4-Supervision or Touching Assistance-helper provides verbal cues and/or touching/steadying and/or contact guard assistance as patient completes activity. Assistance may be provided throughout the activity or intermittently. 3-Partial/Moderate Assistance-helper does LESS THAN HALF the effort. [place] lifts, holds or supports trunk or limbs, but provides less than half the effort. 2-Substantial/Maximal Assistance-helper does MORE THAN HALF the effort. [place] lifts or holds trunk or limbs and provides more than half the effort. 8-Vfhrefwqn-ijblgl does ALL the effort. Patient does none of the effort to complete the activity. Or, the assistance of 2 or more helpers is required for the patient to complete the activity. If activity was not attempted, code reason: 7-Patient Refused. 9-Not Applicable-not attempted and the patient did not perform the activity before the current illness, exacerbation or injury. 10-Not Attempted due to Environmental Limitations-(lack of equipment, weather restraints, etc.). 88-Not Attempted due to Medical Conditions or Safety Concerns. Roll Left & Right (QC): 6 Sit to Lying (QC): 6 Lying to Sitting/Side of Bed(Q: 6 Sit to Stand (QC): 6 Chair/Lte-jo-Toxwl Xfer(QC): 6 Toilet Transfer (QC): 6 Car Transfer (QC): 6 Independent w/safety as pt is impulsive though. Weight Bearing Full Weight Bearing Full Weight Bearing Gait Training Does the Patient Walk?: Yes Distance: 150' x2 Walk 10 feet (QC): 6 Walk 50 ft with 2 Turns(QC): 6 Walk 150 ft (QC): 5 Walking 10ft/uneven surface-QC: 5 Gait Assistive Device: FWW VC for impulsivity and safety. Stair Training Stair Training: Handrails/: 2 handrails #of Steps: 4 1 Step (curb) (QC): 5 4 Steps (QC): 5 12 Steps (QC): 7 Stairs: Pattern: Step to Balance Picking up an Object (QC): 4 Exercises NuStep Minutes: 10 NuStep Workload: 4 Treatments [id number]: Pt completes QC scoring items listed above although WIRE HANGER has to encourage pt to complete them as pt states he is done with Therapy. Pt returns to room at end of tx to rest in recliner for lunch. All needs met, call light in hand. [id number]: Pt sitting in recliner and declines need for BR. Pt asks to have help repositioning in recliner including reclining chair. WIRE HANGER assists and resting at end of tx. All needs met, call light in hand. Assessment Current Status: Fair Progress Pt is able to complete tasks independently although not always socially aware of safety. Impulsive at times and receives VC for safety. PT Short Term Goals Short Term Goals Time Frame: May 29, 2022 Roll Left & Right: 6 Sit to lyin Lying to sitting on side of be: 4 Sit to stand: 4 Chair/nvb-pn-basgd transfer: 4 Walk 10 feet: 4 Walk 50 feet with two turns: 4 Walk 150 feet: 4 PT Care Home Goals Care Home Goals PT Care Home Goals Time Frame: Jun 12, 2022 Roll Left & Right (QC): 6 Sit to Lying (QC): 6 Lying-Sitting on Side/Bed(QC): 6 Sit to Stand (QC): 6 Chair/Kij-dv-Xwzzo Xfer(QC): 5 Toilet Transfer (QC): 5 Car Transfer (QC): 5 Does the Patient Walk: Yes Walk 10 feet (QC): 5 Walk 50ft with 2 Turns (QC): 5 Walk 150 ft (QC): 5 Walking 10ft on Uneven Surface: 5 1 Step (curb) (QC): 4 4 Steps (QC): 4 12 Steps (QC): 88 Picking up an Object (QC): 4 (using copper tapper) Wheel 50 feet with 2 turns (QC: 9 Wheel 150 feet: 9 PT Plan Problem List Problem List: Safety Treatment/Plan Treatment Plan: Continue Plan of Care Treatment Plan: Bed Mobility, Education, Functional Activity Enrico, Functional Strength, Group Therapy, Gait, Safety, Therapeutic Exercise, Transfers Treatment Duration: Jun 12, 2022 Frequency: At least 5 of 7 days/Wk (IRF) Estimated Hrs Per Day: 1.5 hours per day Patient and/or Family Agrees t: Yes Safety Risks/Education Patient Education: Safety Issues Teaching Recipient: Patient Teaching Methods: Discussion Response to Teaching: Reinforcement Needed Time/GCodes Time In: 1100 Time Out: 1200 Total Billed Treatment Time: 60 Total Billed Treatment [id number]: 1, GT x2 (25m) & EX x2 (35m) [id number]: 1, FA (15m) HÉCTOR RODRIGUEZ WIRE HANGER Jun 02, 2022 12:12
[2022-06-02 19:54] VITALS: BP 98/54
[2022-06-03] MEDS ORDERED: MICO90PO TOP (06:21)
[2022-06-03] MEDS ORDERED: DEXA1TAB PO (06:21)
--- NOTE | 2022-06-03 06:22 | D/C HH Face to Face Order ---
D/C HH Face to Face Orders Reconcile Patient Problems Problems Reviewed?: Yes Instructions for Patient HH Patient Instructions/FollowUp: PCP 1 week Physician to follow Patient: pcp Discharge Diet for Home: No Restrictions Patient Problems: craniotomy Patient Data-Allergies,Ht & Wt Patient Allergies: Coded Allergies: Penicillins (Verified Allergy, Unknown, 05/22/22) Home Health Need/Face to Face Date of Face to Face: Jun 03, 2022 Clinical Findings: Generalized weakness and fatigue, Instability, Muscle weakness, Unsteady gait I have seen Pt rpye-ww-mryr: Yes Discharged To: Home Diagnosis/Conditions: Craniotomy Patient is Homebound due to: CognItive deficits, Maria T fall risk due to instabilty, Muscle weakness Homebound Status Due to the above stated illness, injury or surgical procedure (medical condition or diagnosis) and associated clinical findings, the patient is homebound because of his/her inability to leave home except with aid of a supportive device and/or person AND leaving the home requires a considerable and taxing effort or is medically contraindicated. Pt req the following assistanc: Walker Home Health Nursing Orders Home Health Services Order: Nursing Services, In Flight Crew Member-Evaluate & Treat, Physical Therapy-Evaluate & Treat, Speech Language-Evaluate & Treat Certify Stmt I certify that this patient is under my care and that I, a nurse practitioner or a physician; a server service assistant working with me, had a face to face encounter that - meets the physician face to face encounter requirements with this patient as dated. ANSLEY ALSTON DO Jun 03, 2022 06:22
--- NOTE | 2022-06-03 06:23 | Discharge Summary ---
Diagnosis/Chief Complaint Date of Admission May 22, 2022 at 14:19 Date of Discharge Discharge Date: Jun 03, 2022 Discharge Diagnosis Assessment: s/p craniotomy 05/15/22 due to melanoma with mets HTN HLP Seizure risk Confusion Generalized weakness Incontinence Plan: PT OT Home meds Fall risk 05/23/2022: Monitor pain Fall risk 05/24/2022: Monitor pain Steroids 05/25/2022: Continue current treatment Steroid taper per neurosurgery 05/26/2022: Monitor for falls Monitor for pain 05/27/2022: Monitor incontinence 05/28/2022: Monitor closely Fall risk 05/29/2022: Increase ambulation No pain reported 05/30/2022: Monitor closely 05/31/2022: Monitor closely 06/01/2022: Monitor ambulation 06/02/2022: Continue treatment (1) S/P brain surgery Discharge Summary Discharge Physical Examination Allergies: Coded Allergies: Penicillins (Verified Allergy, Unknown, 05/22/22) Vitals & I&Os Vital Signs Date Time Temp Pulse Resp B/P (MAP) Pulse Ox O2 Delivery O2 Flow Rate FiO2 06/03/22 12:15 36.8 92 16 124/66 100 Room Air General Appearance: Alert, Oriented X3, Cooperative Respiratory: Clear to Auscultation Cardiovascular: Regular Rate Psych/Mental Status: Mental Status NL, Mood NL Hospital Course Was the Problem List Reviewed?: Yes Standard course after he was admitted after craniotomy for mass presumed to be malignant melanoma but pathology pending. No decompensation occurred during hospital course. Labs remained stable with Decadron taper. Bowel function returned to normal along with his chronic night time incontinence. Overall he was able to regain function in order to ambulate with walker and increase ADL's so he was DC in improved condition. Labs (last 24 hrs) Laboratory Tests 05/23/22 06:45: White Blood Count 20.3H, Red Blood Count 3.47L, Hemoglobin 10.3L, Hematocrit 31L , Mean Corpuscular Volume 88, Mean Corpuscular Hemoglobin 30, Mean Corpuscular Hemoglobin Concent 34, Red Cell Distribution Width 17.0H, Platelet Count 200, Mean Platelet Volume 9.1, Immature Granulocyte % (Auto) 13, Neutrophils (%) (Auto) 72, Lymphocytes (%) (Auto) 10L, Monocytes (%) (Auto) 4, Eosinophils (%) (Auto) 0, Basophils (%) (Auto) 0, Neutrophils # (Auto) 14.5H, Lymphocytes # (Auto) 2.1, Monocytes # (Auto) 0.9, Eosinophils # (Auto) 0.0, Basophils # (Auto) 0.1, Immature Granulocyte # (Auto) 2.7H, Neutrophils % (Manual) 82, Lymphocytes % (Manual) 11, Monocytes % (Manual) 3, Band Neutrophils 4, Blood Morphology Comment NORMAL, Sodium Level 138, Potassium Level 3.8, Chloride Level 104, Carbon Dioxide Level 23, Anion Gap 11, Blood Urea Nitrogen 19H, Creatinine 0.51L , Estimat Glomerular Filtration Rate 115, BUN/Creatinine Ratio 37, Glucose Level 113H, Calcium Level 8.2L, Corrected Calcium 9.2, Total Bilirubin 0.3, Aspartate Amino Transf (AST/SGOT) 16, Alanine Aminotransferase (ALT/SGPT) 40, Alkaline Phosphatase 64, Total Protein 4.7L, Albumin 2.8L 06/01/22 05:54: White Blood Count 11.7H, Red Blood Count 4.08L, Hemoglobin 11.8L, Hematocrit 36L , Mean Corpuscular Volume 89, Mean Corpuscular Hemoglobin 29, Mean Corpuscular Hemoglobin Concent 33, Red Cell Distribution Width 17.5H, Platelet Count 225, Mean Platelet Volume 8.9L, Immature Granulocyte % (Auto) 9, Neutrophils (%) (Auto) 69, Lymphocytes (%) (Auto) 15, Monocytes (%) (Auto) 6, Eosinophils (%) (Auto) 1, Basophils (%) (Auto) 1, Neutrophils # (Auto) 8.1H, Lymphocytes # (Auto) 1.8, Monocytes # (Auto) 0.6, Eosinophils # (Auto) 0.1, Basophils # (Auto) 0.1, Immature Granulocyte # (Auto) 1.0H, Sodium Level 133L, Potassium Level 3.9, Chloride Level 101, Carbon Dioxide Level 24, Anion Gap 8, Blood Urea Nitrogen 17, Creatinine 0.59L, Estimat Glomerular Filtration Rate 110, BUN/Creatinine Ratio 29, Glucose Level 104, Calcium Level 8.6, Corrected Calcium 9.2, Total Bilirubin 0.5, Aspartate Amino Transf (AST/SGOT) 17, Alanine Aminotransferase (ALT/SGPT) 32, Alkaline Phosphatase 74, Total Protein 5.7L, Albumin 3.3 Pending Labs Laboratory Tests 05/23/22 06:45: White Blood Count 20.3, Red Blood Count 3.47, Hemoglobin 10.3, Hematocrit 31, Mean Corpuscular Volume 88, Mean Corpuscular Hemoglobin 30, Mean Corpuscular Hemoglobin Concent 34, Red Cell Distribution Width 17.0, Platelet Count 200, Mean Platelet Volume 9.1, Immature Granulocyte % (Auto) 13, Neutrophils (%) (Auto) 72, Lymphocytes (%) (Auto) 10, Monocytes (%) (Auto) 4, Eosinophils (%) (Auto) 0, Basophils (%) (Auto) 0, Neutrophils # (Auto) 14.5, Lymphocytes # (Auto) 2.1, Monocytes # (Auto) 0.9, Eosinophils # (Auto) 0.0, Basophils # (Auto) 0.1, Immature Granulocyte # (Auto) 2.7, Neutrophils % (Manual) 82, Lymphocytes % (Manual) 11, Monocytes % (Manual) 3, Band Neutrophils 4, Blood Morphology C omment NORMAL, Sodium Level 138, Potassium Level 3.8, Chloride Level 104, Carbon Dioxide Level 23, Anion Gap 11, Blood Urea Nitrogen 19, Creatinine 0.51, Estimat Glomerular Filtration Rate 115, BUN/Creatinine Ratio 37, Glucose Level 113, Calcium Level 8.2, Corrected Calcium 9.2, Total Bilirubin 0.3, Aspartate Amino Transf (AST/SGOT) 16, Alanine Aminotransferase (ALT/SGPT) 40, Alkaline Phosphatase 64, Total Protein 4.7, Albumin 2.8 06/01/22 05:54: White Blood Count 11.7, Red Blood Count 4.08, Hemoglobin 11.8, Hematocrit 36, Mean Corpuscular Volume 89, Mean Corpuscular Hemoglobin 29, Mean Corpuscular Hemoglobin Concent 33, Red Cell Distribution Width 17.5, Platelet Count 225, Mean Platelet Volume 8.9, Immature Granulocyte % (Auto) 9, Neutrophils (%) (Auto) 69, Lymphocytes (%) (Auto) 15, Monocytes (%) (Auto) 6, Eosinophils (%) (Auto) 1, Basophils (%) (Auto) 1, Neutrophils # (Auto) 8.1, Lymphocytes # (Auto) 1.8, Monocytes # (Auto) 0.6, Eosinophils # (Auto) 0.1, Basophils # (Auto) 0.1, Immature Granulocyte # (Auto) 1.0, Sodium Level 133, Potassium Level 3.9, Chloride Level 101, Carbon Dioxide Level 24, Anion Gap 8, Blood Urea Nitrogen 17, Creatinine 0.59, Estimat Glomerular Filtration Rate 110, BUN/Creatinine Ratio 29, Glucose Level 104, Calcium Level 8.6, Corrected Calcium 9.2, Total Bilirubin 0.5, Aspartate Amino Transf (AST/SGOT) 17, Alanine Aminotransferase (ALT/SGPT) 32, Alkaline Phosphatase 74, Total Protein 5.7, Albumin 3.3 Discharge Home Medications: Active Scripts Active Lotrimin AF (Miconazole Nitrate) 2 % Powder 0 Gm TOP BID bid Dexamethasone 1 Mg Tablet 1 Mg PO DAILY@0800 Reported Pravastatin Sodium 20 Mg Tablet 20 Mg PO HS Aldactone (Spironolactone) 50 Mg Tablet 50 Mg PO DAILY Fenofibrate 160 Mg Tablet 160 Mg PO HS Diclofenac Sodium 75 Mg Tablet.dr 75 Mg PO BID PRN Levetiracetam 500 Mg Tablet 500 Mg PO BID Famotidine 20 Mg Tablet 20 Mg PO BID Instructions to patient/family Please see electronic discharge instructions given to patient. Diagnosis/Problems Diagnosis/Problems (1) S/P brain surgery ANSLEY ALSTON DO Jun 03, 2022 06:23
[2022-06-03 07:25] VITALS: BP 124/66
[2022-06-03] MEDS: FAMOTIDINE 20 MG (PEPCID) TABLET PO SCH (08:19)
[2022-06-03] MEDS: FENOFIBRATE 134 MG (LOFIBRA) CAPSULE PO SCH (08:19)
[2022-06-03] MEDS: MICONAZOLE 2% POWDER (DESENEX AF) 90 GM TOP SCH (08:19)
[2022-06-03] MEDS: SENNA W/DOCUSATE (SENOKOT S) TABLET PO SCH (09:56)
[2022-06-03] MEDS: polyethylene glycoL POWDER 17 GM (MIRALAX) PACK PO SCH (09:56)
[2022-06-03] MEDS: DOCUSATE SODIUM 100 MG (COLACE) CAP PO SCH (09:56)
--- NOTE | 2022-06-03 11:25 | Therapy Team Discharge Summary ---
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 Upon evaluation patient rolls independently, supine to sit min assist, sit to supine SBA, sit <- > stand min assist, transfers and car transfer CGA, ambulate 120' with a rolling walker with CGA (including 50' with at least 2 turns of 90 degrees and 10' over an uneven surface). Patient has been performing bed mobility and transfer training, balance and endurance training, functional strengthening, stair training, gait training, and education. Patient has made fair progress and has met all of his mcc goals. Now, patient performs rolling and supine <-> sit with independence, sit <-> stand and transfers with independence, car transfer independent, ambulates at least 150' with a rolling walker with setup (including 50' with at least 2 turns of 90 degrees and 10' over an uneven surface), can go up and down 4 steps using 2 handrails with SBA, and can cherry picker operator an object from the floor with CGA/SBA. Patient is being discharged from this facility today and will be discharged from PT at this time. Roll Left to Right (QC): 6 Sit to Lying (QC): 6 Lying to Sitting/Side of Bed(Q: 6 Sit to Stand (QC): 6 Chair/Rrd-sm-Adnhq Xfer(QC): 6 Toilet Transfer (QC): 4 Car Transfer (QC): 6 Does the Patient Walk: Yes Mode of Locomotion: Walk Anticipated Mode of Locomotion: Walk Walk 10 feet (QC): 6 Walk 50 ft with 2 Turns(QC): 6 Walk 150 ft (QC): 5 Walking 10ft on uneven surface: 5 Distance: 120', 60'x2 Gait Assistive Device: FWW Does the Pt Use a Wheelchair: No Wheel 50 ft with 2 turns (QC): 9 Wheel 150 ft (QC): 9 Type of Wheelchair: N/A #of Steps: 4 1 Step (curb) (QC): 5 4 Steps (QC): 5 12 Steps (QC): 7 Balance Sitting Static: Normal Balance Sitting Dynamic: Normal Balance-Standing Static: Fair Picking up an Object (QC): 4 Occupational Therapy Decreased Activ Tolerance, Decreased Safety Aware, Decreased UE Strength, Impaired Cognition, Impaired Coordination, Impaired Funct Balance, Impaired I ADL's, Impaired Self-Care Skills Eating (QC): 5 (Assistance to cut up food and open some containers) Oral Hygiene (QC): 4 (SBA standing at sink, v/c's for sequencing) Shower/Bathe Self (QC): 4 (V/c's for sequencing) Upper Body Dressing (QC): 5 Lower Body Dressing (QC): 4 (SBA to hike pants) On/Off Footwear (QC): 3 (Min A to hike R gripper sock, v/c's for foot placement) Toileting Hygiene (QC): 4 (SBA for pant hike, v/c's for sequencing) PT Mcc Goals Mcc Goals PT Machine Helper Goals Time Frame: Jun 12, 2022 Roll Left to Right (QC): 6 Sit to Lying (QC): 6 Lying-Sitting on Side/Bed(QC): 6 Sit to Stand (QC): 6 Chair/Zug-vy-Zkkrl Xfer(QC): 5 Car Transfer (QC): 5 Does the Patient Walk: Yes Walk 10 feet (QC): 5 Walk 10ft-Uneven Surface(QC): 5 Walk 50ft with 2 Turns (QC): 5 Walk 150 ft (QC): 5 Wheel 50 feet with 2 turns (QC: 9 1 Step (curb) (QC): 4 4 Steps (QC): 4 12 Steps (QC): 88 Picking up an Object (QC): 4 (using production mechanic) OT Machine Helper Goals Mcc Goals Time Frame: Jun 19, 2022 Eating (QC): 5 (met) Oral Hygiene (QC): 6 (not met) Shower/Bathe Self (QC): 4 (met) Upper Body Dressing (QC): 5 (met) Lower Body Dressing (QC): 4 (not met) On/Off Footwear (QC): 4 (not met) Toileting Hygiene (QC): 6 (not met) Toilet/Commode Transfer (QC): 5 Additional Goals: 1-Demonstrate ADL Tasks, 2-Verbalize Understanding, 3- ImproveStrength/Enrico 1=Demonstrate adherence to instructed precautions during ADL tasks. 2=Patient will verbalize/demonstrate understanding of assistive devices/modifications for ADL. 3=Patient will improve strength/tolerance for activity to enable patient to perform ADL's. Speech Machine Helper Goals Machine Helper Goals The patient will display improved cognitive linguistic function for safe discharge to the least restrictive environment. The patient was progressing towards goals, however, continues to require verbal cues for safety and increased processing speeds. ANASTASIIA MARQUEZ PT Jun 03, 2022 11:25
--- NOTE | 2022-06-03 12:00 | Therapy Team Discharge Summary ---
Therapy Discharge Summary Discharge Recommendations Date of Discharge Physical Therapy Roll Left to Right (QC): 6 Sit to Lying (QC): 6 Lying to Sitting/Side of Bed(Q: 6 Sit to Stand (QC): 6 Chair/Eix-xu-Ufmxh Xfer(QC): 6 Toilet Transfer (QC): 4 Car Transfer (QC): 6 Does the Patient Walk: Yes Mode of Locomotion: Walk Anticipated Mode of Locomotion: Walk Walk 10 feet (QC): 6 Walk 50 ft with 2 Turns(QC): 6 Walk 150 ft (QC): 5 Walking 10ft on uneven surface: 5 Distance: 120', 60'x2 Gait Assistive Device: FWW Does the Pt Use a Wheelchair: No Wheel 50 ft with 2 turns (QC): 9 Wheel 150 ft (QC): 9 Type of Wheelchair: N/A #of Steps: 4 1 Step (curb) (QC): 5 4 Steps (QC): 5 12 Steps (QC): 7 Balance Sitting Static: Normal Balance Sitting Dynamic: Normal Balance-Standing Static: Fair Picking up an Object (QC): 4 Occupational Therapy Pt presented to ARU with a non-traumatic brain injury. At [facility], pt reports being IND with ADLs and used an AD for functional mobility (device unclear d/t pt being poor historian). At eval, pt scored setup with eating, CGA with oral care, min-mod A with toileting and showering, min A for UBD, and mod A for LBD and footwear. OT tx focused on increasing IND in ADLs, functional mobility, functi onal cognition, activity tolerance, and BUE strength and endurance. Pt made functional progress towards goals, meeting 3/7. Pt's poor safety awareness and impulsiveness hindered him from meeting all goals. OT has no DME or AE recommendations at this time, but recommends pt continue with skilled OT services with home health agency. Pt to d/c home with spouse. D/c from OT at this time. Decreased Activ Tolerance, Decreased Safety Aware, Decreased UE Strength, Impaired Cognition, Impaired Coordination, Impaired Funct Balance, Impaired I ADL's, Impaired Self-Care Skills Eating (QC): 5 (Assistance to cut up food and open some containers) Oral Hygiene (QC): 4 (SBA standing at sink, v/c's for sequencing) Shower/Bathe Self (QC): 4 (V/c's for sequencing) Upper Body Dressing (QC): 5 Lower Body Dressing (QC): 4 (SBA to hike pants) On/Off Footwear (QC): 3 (Min A to hike R gripper sock, v/c's for foot placement) Toileting Hygiene (QC): 4 (SBA for pant hike, v/c's for sequencing) PT Long-Term Goals Long-Term Goals PT Medical Liaison Goals Time Frame: Jun 12, 2022 Roll Left to Right (QC): 6 Sit to Lying (QC): 6 Lying-Sitting on Side/Bed(QC): 6 Sit to Stand (QC): 6 Chair/Aue-qk-Dirjn Xfer(QC): 5 Car Transfer (QC): 5 Does the Patient Walk: Yes Walk 10 feet (QC): 5 Walk 10ft-Uneven Surface(QC): 5 Walk 50ft with 2 Turns (QC): 5 Walk 150 ft (QC): 5 Wheel 50 feet with 2 turns (QC: 9 1 Step (curb) (QC): 4 4 Steps (QC): 4 12 Steps (QC): 88 Picking up an Object (QC): 4 (using customer relations assistant) OT Medical Liaison Goals Long-Term Goals Time Frame: Jun 19, 2022 Eating (QC): 5 (met) Oral Hygiene (QC): 6 (not met) Shower/Bathe Self (QC): 4 (met) Upper Body Dressing (QC): 5 (met) Lower Body Dressing (QC): 4 (not met) On/Off Footwear (QC): 4 (not met) Toileting Hygiene (QC): 6 (not met) Toilet/Commode Transfer (QC): 5 Additional Goals: 1-Demonstrate ADL Tasks, 2-Verbalize Understanding, 3- ImproveStrength/Enrico 1=Demonstrate adherence to instructed precautions during ADL tasks. 2=Patient will verbalize/demonstrate understanding of assistive devices/modifications for ADL. 3=Patient will improve strength/tolerance for activity to enable patient to perform ADL's. Speech Medical Liaison Goals Medical Liaison Goals The patient will display improved cognitive linguistic function for safe discharge to the least restrictive environment. The patient was progressing towards goals, however, continues to require verbal cues for safety and increased processing speeds. CARMEN MC OT Jun 03, 2022 12:00
[2022-06-03 12:15] VITALS: BP 124/66
== END 2022-06-03 12:15 | disposition home health service (06) | DRG 950 ==
PROVIDERS: ADMIT Internal Medicine; ATTEND Internal Medicine
DX: Z48.812 Encounter for surgical aftercare following surgery on the circulatory system (principal); R53.1 Weakness; R29.810 Facial weakness; R26.9 Unspecified abnormalities of gait and mobility; R41.0 Disorientation, unspecified; N39.44 Nocturnal enuresis; F32.A Depression, unspecified; E78.00 Pure hypercholesterolemia, unspecified; I10 Essential (primary) hypertension; Z87.891 Personal history of nicotine dependence; Z85.820 Personal history of malignant melanoma of skin; Z88.0 Allergy status to penicillin
CPT/HCPCS: 36415; 80053; 85007; 85025; 85027